=== PATIENT | female | born 1990 | race African-American/Black ===

== ENCOUNTER 2020-03-11 16:08 | Emergency (ER) | payer SELFPAY ==
[2020-03-11] MEDS ORDERED: KETOROLAC 30 MG/ML INJ ONE (17:08)
--- NOTE | 2020-03-11 17:40 | EDPHYS ---
Physician Documentation [facility] Name: Eros Jameson Age: 29 yrs Sex: Female : 1990 Arrival Date: 03/11/2020 Time: 16:10 Bed 25 Private MD: ED Physician Anoop Carrington HPI: 03/11 17:05 This 29 yrs old Black Female presents to ER via Ambulatory with complaints of Knee Pain.kb 17:06 The patient presents with decreased range of motion, pain, swelling, tenderness. The kb complaints affect the left knee. Context: The problem was sustained at home, resulted from an unknown cause, the patient can fully bear weight, the patient is able to ambulate. Onset: The symptoms/episode began/occurred 7 day(s) ago. Modifying factors: The symptoms are alleviated by nothing. the symptoms are aggravated by hyperextension and hyperflexion. Associated signs and symptoms: Pertinent positives: swelling. Treatment prior to arrival includes: no previous treatment. Severity of symptoms: At their worst the symptoms were moderate, in the emergency department the symptoms are unchanged. The patient has not experienced similar symptoms in the past. The patient has not recently seen a physician. Pt reports pain to left knee with swelling for 7 days. States she has bad knees from sports in school, but did not injury it that she knows of. 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 - Social history:: Smoking status: Patient reports the use of cigarette tobacco products, denies chronic smoking, but will smoke occasionally. ROS: 17:03 Constitutional: Negative for fever, chills, and weight loss, Cardiovascular: Negative kb for chest pain, palpitations, and edema, Respiratory: Negative for shortness of breath, cough, wheezing, and pleuritic chest pain, Abdomen/GI: Negative for abdominal pain, nausea, vomiting, diarrhea, and constipation, Back: Negative for injury and pain, Skin: Negative for injury, rash, and discoloration, Neuro: Negative for headache, weakness, numbness, tingling, and seizure. 17:03 MS/extremity: Positive for decreased range of motion, pain, swelling, tenderness, of the left knee. Exam: 17:03 Constitutional: This is a well developed, well nourished patient who is awake, alert, kb and in no acute distress. Head/Face: Normocephalic, atraumatic. Chest/axilla: Normal chest wall appearance and motion. Nontender with no deformity. No lesions are appreciated. Cardiovascular: Regular rate and rhythm with a normal S1 and S2. No gallops, murmurs, or rubs. Normal PMI, no JVD. No pulse deficits. Respiratory: Lungs have equal breath sounds bilaterally, clear to auscultation and percussion. No rales, rhonchi or wheezes noted. No increased work of breathing, no retractions or nasal flaring. Abdomen/GI: Soft, non-tender, with normal bowel sounds. No distension or tympany. No guarding or rebound. No evidence of tenderness throughout. Skin: Warm, dry with normal turgor. Normal color with no rashes, no lesions, and no evidence of cellulitis. Neuro: Awake and alert, GCS 15, oriented to person, place, time, and situation. Cranial nerves II-XII grossly intact. Motor strength 5/5 in all extremities. Sensory grossly intact. Cerebellar exam normal. Normal gait. 17:03 Musculoskeletal/extremity: Extremities: grossly normal except: noted in the left knee: decreased ROM, pain, swelling, tenderness, ROM: limited active range of motion due to pain, in the left knee, Circulation is intact in all extremities. Sensation intact. Weight bearing: able to fully bear weight. Vital Signs: 16:19 BP 144 / 92; Pulse 86; Resp 15 S; Temp 97.5(TE); Pulse Ox 100% on R/A; Weight 163.29 kg ca1 (R); Height 5 ft. 7 in. (170.18 cm) (R); 16:19 Body Mass Index 56.38 (163.29 kg, 170.18 cm) ca1 MDM: 16:51 Patient medically screened. kb 17:05 Data reviewed: vital signs, nurses notes. Data interpreted: Pulse oximetry: on room air kb is 100 %. Interpretation: normal. 17:37 Counseling: I had a detailed discussion with the patient and/or guardian regarding: the kb historical points, exam findings, and any diagnostic results supporting the discharge/admit diagnosis, radiology results, the need for outpatient follow up, a orthopedic surgeon, to return to the emergency department if symptoms worsen or persist or if there are any questions or concerns that arise at home. 03/11 16:57 Order name: Knee Left 3 View XRAY kb 03/11 17:39 Order name: Ha Wrap; Complete Time: 17:55 kb Administered Medications: 17:02 Drug: TORadol 30 mg Route: IM; Site: left deltoid; sv 17:58 Follow up: Response: No adverse reaction sv Disposition: 03/12 07:13 Co-signature as Attending Physician, Anoop Carrington MD. rn Disposition: 03/11/20 17:39 Discharged to Home. Impression: Pain in left knee. - Condition is Stable. - Discharge Instructions: Knee Pain, Mrtr-ex-Sdbe. - Prescriptions for Diclofenac Sodium 75 mg Oral Tablet, Delayed Release (E.C.) - take 1 tablet by ORAL route 2 times per day As needed; 30 tablet. - Medication Reconciliation Form, Thank You Letter, Antibiotic Education, Prescription Opioid Use form. - Follow up: Emergency Department; When: As needed; Reason: Worsening of condition. Follow up: Private Physician; When: 2 - 3 days; Reason: Recheck today's complaints, Continuance of care, Re-evaluation by your physician. Signatures: Dispatcher [employer] Whitney Barraza, ENGINEER TECHNICAL STAFF-C ENGINEER TECHNICAL STAFF-Simin Colón RN RN Anoop Ruiz MD MD rn Acob, Cheryl, RN RN ca1 Corrections: (The following items were deleted from the chart) 03/11 17:58 17:39 03/11/2020 17:39 Discharged to Home. Impression: Pain in left knee. Condition is sv Stable. Discharge Instructions: Knee Pain, Degk-pc-Kzuk. Prescriptions for Diclofenac Sodium 75 mg Oral Tablet, Delayed Release (E.C.) - take 1 tablet by ORAL route 2 times per day As needed; 30 tablet. and Forms are Medication Reconciliation Form, Thank You Letter, Antibiotic Education, Prescription Opioid Use. Follow up: Emergency Department; When: As needed; Reason: Worsening of condition. Follow up: Private Physician; When: 2 - 3 days; Reason: Recheck today's complaints, Continuance of care, Re-evaluation by your physician. kb
--- NOTE | 2020-03-11 17:40 | ER ---
Nurse's Notes [facility] Name: Eros Jameson Age: 29 yrs Sex: Female : 1990 Arrival Date: 03/11/2020 Time: 16:10 Bed 25 Private MD: Diagnosis: Pain in left knee Presentation: 03/11 16:19 Chief complaint: Patient states: I have always had problem on my knees but couple of ca1 days ago, my L knee just started hurting real bad and I can only bend it up to a certain point. It is swollen and it hurts to walk on it and stand on it too long. Coronavirus screen: Proceed with normal triage. Patient denies a cough. Patient denies shortness of breath or difficulty breathing. Patient denies measured and/or subjective temperature greater than 100.4F prior to today's visit. Patient denies travel on a cruise ship or to a country the [facility] currently lists as an affected area. Patient denies contact with known and/or suspected case of COVID-19. Ebola Screen: Patient negative for fever greater than or equal to 101.5 degrees Fahrenheit, and additional compatible Ebola Virus Disease symptoms Patient denies exposure to infectious person. Patient denies travel to an Ebola-affected area in the 21 days before illness onset. No symptoms or risks identified at this time. Initial Sepsis Screen: Does the patient meet any 2 criteria? No. Patient's initial sepsis screen is negative. Does the patient have a suspected source of infection? No. Patient's initial sepsis screen is negative. Risk Assessment: Do you want to hurt yourself or someone else? Patient reports no desire to harm self or others. Onset of symptoms was March 11, 2020. 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 - Social history:: Smoking status: Patient reports the use of cigarette tobacco products, denies chronic smoking, but will smoke occasionally. Screenin:56 Abuse screen: Denies threats or abuse. Denies injuries from another. Nutritional sv screening: No deficits noted. Tuberculosis screening: No symptoms or risk factors identified. Fall Risk None identified. Assessment: 17:00 General: Appears in no apparent distress. uncomfortable, obese, well developed, sv Behavior is calm, cooperative, appropriate for age. Pain: Complains of pain in left knee. Neuro: Level of Consciousness is awake, alert, obeys commands, Oriented to person, place, time, situation, Moves all extremities. Full function Gait is steady. Respiratory: Airway is patent Respiratory effort is even, unlabored, Respiratory pattern is regular, symmetrical. Derm: Skin is intact, Skin is pink, warm \T\ dry. 17:58 Reassessment: Patient appears in no apparent distress at this time. No changes from sv previously documented assessment. Patient and/or family updated on plan of care and expected duration. Pain level reassessed. Patient is alert, oriented x 3, equal unlabored respirations, skin warm/dry/pink. Vital Signs: 16:19 BP 144 / 92; Pulse 86; Resp 15 S; Temp 97.5(TE); Pulse Ox 100% on R/A; Weight 163.29 kg ca1 (R); Height 5 ft. 7 in. (170.18 cm) (R); 16:19 Body Mass Index 56.38 (163.29 kg, 170.18 cm) ca1 ED Course: 16:10 Patient arrived in ED. fj1 16:23 Triage completed. ca1 16:23 Arm band placed on right wrist. ca1 16:49 Simin Crawley RN is Primary Nurse. sv 16:51 Whitney [facility]C [facility] kb 16:51 Anoop Carrington MD is Attending Physician. kb 16:56 Nurse Practitioner and/or Physician Cereal Miller to see patient. sv 16:56 Patient has correct armband on for positive identification. Call light in reach. sv 17:26 Awaiting radiology results. sv 17:58 No provider procedures requiring assistance completed. Patient did not have IV access sv during this emergency room visit. 19:25 Knee Left 3 View XRAY In Process Unspecified. EDMS Administered Medications: 17:02 Drug: TORadol 30 mg Route: IM; Site: left deltoid; sv 17:58 Follow up: Response: No adverse reaction sv Outcome: 17:39 Discharge ordered by . kb 17:58 Patient left the ED. sv 17:58 Discharged to home via wheelchair, with crutches. sv 17:58 Condition: stable 17:58 Discharge instructions given to patient, Instructed on discharge instructions, follow up and referral plans. Demonstrated understanding of instructions, follow-up care. Signatures: Dispatcher [employer] Whitney Barraza, DILIA-Simin Lopes RN RN sv Acob, Cheryl RN ANTONELLA [facility]
--- OUTSIDE RECORDS SUMMARY | 2020-03-11 18:07 | XMS REPORT | Continuity of Care Document ---
:1990 Author Organization [facility] t Address [address] [place] [address] Care Team Providers Name Role Phone Darby Noyola Attending Clinician Problems This patient has no known problems. Allergies, Adverse Reactions, Alerts This patient has no known allergies or adverse reactions. Medications This patient has no known medications. Procedures This patient has no known procedures. Encounters Start End Encounter Admission Attending Care Care Encounter Source Date/Time Date/Time Type Type Clinicians Facility Department ID 2019-04-24 2019-04-24 Emergency Marta Blanca [facility] [id number] 20:31:49 22:36:00 Darby Mota [id number] [place] [id number] [place] [id number] Results This patient has no known results.
[2020-03-11 18:11] VITALS: BP 144/92; TEMP 97.5; O2SAT 100
--- NOTE | 2020-03-11 21:35 | RAD REPORT ---
EXAM DESCRIPTION: RAD - Knee Left 3 View - 03/11/2020 6:07 pm CLINICAL HISTORY: Left knee pain FINDINGS: No fracture or dislocation is seen. Mild medial joint space narrowing
== END 2020-03-11 17:58 | disposition home or self-care (01) ==
LOC: ER 16:08
DX: M25.562 Pain in left knee (principal); F17.210 Nicotine dependence, cigarettes, uncomplicated
CPT/HCPCS: 96372; 99283

== ENCOUNTER 2020-10-12 21:26 | Emergency (ER) | payer SELFPAY ==
--- OUTSIDE RECORDS SUMMARY | 2020-10-12 21:29 | XMS REPORT | Summary of Care ---
:1990 Author Organization [facility] Address [address] [place] [id number] Care Team Providers Name Role Phone Pcp, Does Not Have A Primary Care Provider Reason for Visit Reason Comments Back Pain Auth/Cert Status Reason Specialty Diagnoses / Referred By Referred To Procedures Contact Contact Emergency Medicine Diagnoses back pain [facility] [address] [place] [address] Fax: Encounter Details Date Type Department Care Team Description 08/13/2020 - Emergency [facility] [place], [place] Upper trish k pain (Primary Dx); 08/14/2020 Department F, [facility]TER Muscle spasm [address] [place] [address] [place], [place] [phone] Allergies No Known Allergiesdocumented as of this encounter (statuses as of 08/14/2020) Medications Medication Sig Dispensed Refills Start Date End Date Status traMADOL 50 mg Take 1 tablet by 30 tablet 0 10/30/2018 Active tabletIndications: mouth every 6 Acute bilateral (six) hours as thoracic back pain needed for Pain (scale 4-6). benzonatate 200 mg Take 1 capsule by 21 capsule 0 12/06/2018 Active capsuleIndications: mouth 3 (three) Chest pain, times daily as unspecified type, needed for Cough. Acute bronchitis, unspecified organism, Acute cystitis without hematuria, Chest wall pain albuterol 90 Inhale 2 Puffs 8.5 g 0 12/06/2018 A ctive mcg/actuation every 4 (four) inhalerIndications: hours as needed Chest pain, for Wheezing, unspecified type, Shortness of Acute bronchitis, Breath, unspecified organism, Bronchospasm or Chest wall pain Chest tightness. methocarbamol 750 mg Take 1 tablet by 10 tablet 0 02/11/2019 Active tabletIndications: mouth 4 (four) Neck pain times daily. ibuprofen 600 mg Take 1 tablet by 30 tablet 0 04/24/2019 Active tabletIndications: mouth every 6 Strain of left wrist, (six) hours as initial encounter needed for Pain (scale 4-6). diclofenac 75 mg EC TAKE 1 TABLET BY 0 03/12/2020 Active tablet MOUTH TWICE DAILY NEEDED cyclobenzaprine 10 mg Take 1 tablet by 21 tablet 0 08/14/2020 Active tabletIndications: mouth 3 (three) Upper back pain, times daily as Muscle spasm needed for Muscle Spasms. ibuprofen 800 mg Take 1 tablet by 14 tablet 0 08/14/2020 Active tabletIndications: mouth every 6 Upper back pain, (six) hours as Muscle spasm needed for Pain (scale 4-6). documented as of this encounter (statuses as of 08/14/2020) Active Problems Problem Noted Date BMI 50.0-59.9, adult 07/26/2017 Elevated blood pressure reading without diagnosis of h ypertension 07/26/2017 Depression, unspecified depression type 09/01/2016 Morbid obesity 08/07/2015 Encounter for general counseling and advice on contrac eptive management 08/07/2015 Well woman exam with routine gynecological exam 2014 Screening examination for STD (sexually transmitted di sease) 08/07/2015 documented as of this encounter (statuses as of 08/14/2020) Resolved Problems Problem Noted Date Resolved Date UTI (urinary tract infection) 08/23/2016 05/01/2020 Encounter for other general counseling or advice on 08/18/20 16 05/01/2020 contraception Recurrent acute serous otitis media of left ear 08/07/2015 07/26/2017 documented as of this encounter (statuses as of 08/14/2020) Immunizations Name Administration Dates Next Due TDAP 02/18/2012 documented as of this encounter Social History Tobacco Use Types Packs/Day Years Used Date Current Every Day Smoker Cigarettes 12 Sta rted: 07/26/2005 Smokeless Tobacco: Never Used Comments: 3-4 cigarettes per day Alcohol Use Drinks/Week oz/Week Comments Yes 0 Standard drinks or equivalent 0.0 socially Sex Assigned at Date Recorded Not on file COVID-19 Exposure Response Date Recorded In the last month, have you been in contact with No / Unsure 08/13/2020 11:40 PM ADMINISTRATION INTERN someone who was confirmed or suspected to have Coronavirus / COVID-19? documented as of this encounter Last Filed Vital Signs Vital Sign Reading Time Taken Comments Blood Pressure 151/92 08/14/2020 12:46 AM ADMINISTRATION INTERN Pulse 85 08/14/2020 12:46 AM ADMINISTRATION INTERN Temperature 37.7 C (99.9 F) 08/13/2020 11:53 PM ADMINISTRATION INTERN Respiratory Rate 20 08/14/2020 12:46 AM ADMINISTRATION INTERN Oxygen Saturation 97% 08/14/2020 12:46 AM ADMINISTRATION INTERN Inhaled Oxygen Concentration - - Weight 167.8 kg (370 lb) 08/13/2020 11:50 PM ADMINISTRATION INTERN Height - - Body Mass Index 57.95 05/01/2020 8:17 AM CDT documented in this encounter Discharge Instructions Airam Rodrigues FNP - 08/14/2020 You were seen today for Chief Complaint Patient presents with Back Pain Your ER diagnosis was ICD-10-CM ICD-9-CM 1. Upper back pain M54.9 724.5 2. Muscle spasm M62.838 728.85 NO LIFE-THREATENING FINDINGS ON TODAY'S EXAM. YOUR PRESCRIPTIONS : Medication List START taking these medications cyclobenzaprine 10 mg tablet Commonly known as: FLEXERIL Take 1 tablet by mouth 3 (three) times daily as needed for Muscle Spasms. CHANGE how you take these medications * ibuprofen 600 mg tablet Commonly known as: IBU Take 1 tablet by mouth every 6 (six) hours as needed for Pain (scale 4-6). What changed: Another medication with the same name was added. Make sure you understand how and whento take each. * ibuprofen 800 mg tablet Commonly known as: IBU Take 1 tablet by mouth every 6 (six) hours as needed for Pain (scale 4-6). What changed: You were already taking a medication with the same name, and this prescription was added. Make sure you understand how and when to take each. * This list has 2 medication(s) that are the same as other medications prescribed for you. Read thedirections carefully, and ask your doctor or other care provider to review them with you. ASK your doctor about these medications albuterol 90 mcg/actuation inhaler Commonly known as: VENTOLIN Inhale 2 Puffs every 4 (four) hours as needed for Wheezing, Shortness of Breath, Bronchospasm or Chest tightness. benzonatate 200 mg capsule Commonly known as: TESSALON Take 1 capsule by mouth 3 (three) times daily as needed for Cough. diclofenac 75 mg EC tablet Commonly known as: VOLTAREN methocarbamoL 750 mg tablet Commonly known as: ROBAXIN Take 1 tablet by mouth 4 (four) times daily. traMADoL 50 mg tablet Commonly known as: ULTRAM Take 1 tablet by mouth every 6 (six) hours as needed for Pain (scale 4-6). Where to Get Your Medications You can get these medications from any pharmacy Bring a paper prescription for each of these medications cyclobenzaprine 10 mg tablet ibuprofen 800 mg tablet ER precautions and follow up : 1. Return to ER if your symptoms should worsen or fail to improve within 72 hours. 2. The care provided in the emergency room was for acute problems only. 3. You should follow up with your primary care provider within 72 hours. 4. Fill and take all your medications as prescribed. 5. Make sure you are staying adequately hydrated. Busque attencion immediatamente si usted tiene los sitomas sigue, vuelve peor o si hay sitomas nuevas o para cualquiera preoccupacion incluyendo dolor del pecho, falta aire, se siente debile, mas fievre, mas dolor, nausea, vomitando, sangrando que no es normal, confusion, baja or pierdas conciencia. FOLLOW-UP RECOMMENDATIONS: RECOMMEND FOLLOW-UP WITH A PRIMARY CARE PROVIDER OR SPECIALIST IN 2-5 DAYS, ESPECIALLY IF NO IMPROVEMENT IN SYMPTOMS. MAY FOLLOW-UP WITH A PROVIDER OF YOUR CHOICE, SUCH : 1. A PHYSICIAN OF YOUR CHOICE 2. [facility], . LOCATIONS IN [facility] 3. [facility], [address] [place], [place]; [phone] OR, IF YOU WISH TO FOLLOW-UP WITHIN THE [facility], MAY TRY THESE OPTIONS (CLINIC APPOINTMENTS AVAILABLE ON [id number] BASIS): 1. SCHEDULE AN APPOINTMENT ONLINE AT [facility] 2. OR CALL THE [facility] AT OR 3. OR CALL YOUR [facility] PHYSICIAN'S OFFICE DIRECTLY IF YOU ARE ALREADY AN ESTABLISHED [facility] PATIENT. AttachmentsThe following attachments cannot be sent through Care Everywhere.Back Spasm, No Trauma (Cymraes)documented in this encounter ED Notes Bartolo Vitale RN - 08/13/2020 11:50 PM CSTPt reports right upper back pain beside lower shoulder blade that started Tuesday (no trauma) and is getting worse/not going away. Npo OTC meds in past 4-[address] NISTRATION INTERN documented in this encounter Miscellaneous Notes ED Nurse Note - Bartool Vitale RN - 08/14/2020 12:56 AM CSTPt given printed and verbal discharge instructions regarding back spasms, encouraged heating pad intermittently for some relief prescriptions provided and discussed with patient/family Discussed Tylenol and ibuprofen use for pain/fever. Discussed ibuprofen and to take with food to avoid GI distress. Discussed cyclobenzaprine side effects and to avoid driving/operating machinery/or engaging in activities requiring alertness while taking. Pt encouraged to follow up with pcp Advised to seek medical attention for new/prolonged/worsening of symptoms. No adverse reaction to meds given in ER noted upon discharge. Pt verbalized understanding of instructions, awake alert oriented, resp reg unlabored, skin w/d, color appropriate for race, moves all ext well, pt leaving amb with steady gait, in no apparent distress, NISTRATION INTERN documented in this encounter Plan of Treatment Health Maintenance Due Date Last Done Comments PNEUMOCOCCAL 0-64 YEARS COMBINED 1994 SERIES (1 of 1 - PPSV23) INFLUENZA VACCINE (#1) 2020 Depression Screening 05/01/2021 05/01/2020, 05/01/2020 DTaP,Tdap,and Td Vaccines (2 - Td) 02/17/2022 02/18/2012 PAP SMEAR 05/01/2023 05/01/2020, 08/07/2015, 03/10/2010 VARICELLA VACCINES Discontinued documented as of this encounter Procedures Procedure Name Priority Date/Time Associated Diagnosis Comme nts POCT TEST JOSE 08/14/2020 12:01 AM Upper back fe n Results for this ADMINISTRATION INTERN procedure are i n the results section. documented in this encounter Results POCT TEST (08/14/2020 12:01 AM ADMINISTRATION INTERN) Pathologist Sig nature POCT PREG negative On board controls acceptable present with C Line POCT PREG LOT # [id number] POCT PREG TEST DATE 2022-01-16 Specimen Urine - URINE, CLEAN CATCH documented in this encounter Visit Diagnoses Diagnosis Upper back pain - Primary Muscle spasm Spasm of muscle documented in this encounter Administered Medications Medication Order MAR Action Action Date Dose Rate Site acetaminophen (TYLENOL) tablet Given 08/14/2020 12:39 AM ADMINISTRATION INTERN 1,0 00 mg 1,000 mg 1,000 mg, Oral, ONCE, 1 dose, Margaret 08/14/20 at 0145, JOSE dexamethasone (DECADRON Given 08/14/2020 12:07 AM 10 mg Right Dorsogluteal-IM PHOSPHATE) injection 10 mg ADMINISTRATION INTERN 10 mg, Intramuscular, ONCE, 1 dose, Margaret 08/14/20 at 0100, STAT ketorolac (TORADOL) Given 08/14/2020 12:08 AM ADMINISTRATION INTERN 60 mg Left Dorsogluteal-IM injection 60 mg 60 mg, Intramuscular, ONCE, 1 dose, Margaret 08/14/20 at 0100, JOSE, food court team member approving Restricted medication: AIRAM CARRILLO documented in this encounter Advance Directives Name Relationship Healthcare Agent Communication Relationship Sindhu Mcgill Mother Health Care Agent Pancho Jameson Father [facility] Care Agent ([place])
--- OUTSIDE RECORDS SUMMARY | 2020-10-12 21:29 | XMS REPORT | Summary of Care ---
:1990 Author Organization [facility] - Health Address [address] [place] [address] Care Team Providers Name Role Phone Pcp, Does Not Have A Primary Care Provider Encounter Details Date Type Department Care Team Description 10/09/2020 Orders Only [facility] Doctor Unassigned, No [address] [facility] [place] [address] [address] [place] [address] Allergies No Known Allergiesdocumented as of this encounter (statuses as of 10/09/2020) Medications Medication Sig Dispensed Refills Start Date [...] as of this encounter (statuses as of 10/09/2020) Active Problems Problem Noted Date BMI 50.0-59.9, adult 07/26/2017 Elevated blood pressure reading without diagnosis of h ypertension 07/26/2017 Depression, unspecified depression type 09/01/2016 Morbid obesity 08/07/2015 Encounter for general counseling and advice on contrac eptive management 08/07/2015 Well woman exam with routine gynecological exam 2014 Screening examination for STD (sexually transmitted di sease) 08/07/2015 documented as of this encounter (statuses as of 10/09/2020) Resolved Problems Problem Noted Date Resolved Date UTI (urinary tract infection) 08/23/2016 05/01/2020 Encounter for other general counseling or advice on 08/18/20 16 05/01/2020 contraception Recurrent acute serous otitis media of left ear 08/07/2015 07/26/2017 documented as of this encounter (statuses as of 10/09/2020) Immunizations Name Administration Dates Next Due TDAP 02/18/2012 documented as of this encounter Social History Tobacco Use Types Packs/Day Years Used Date Current Every Day Smoker Cigarettes 12 Sta rted: 07/26/2005 Smokeless Tobacco: Never Used Comments: 3-4 cigarettes per day Alcohol Use Drinks/Week oz/Week Comments Yes 0 Standard drinks or equivalent 0.0 socially Sex Assigned at Date Recorded Not on file documented as of this encounter Last Filed Vital Signs Not on filedocumented in this encounter Plan of Treatment Health Maintenance Due Date Last Done Comments PNEUMOCOCCAL 0-64 YEARS COMBINED 1994 SERIES (1 of 3 - PCV13) INFLUENZA VACCINE (#1) 2020 Depression Screening 05/01/2021 05/01/2020, 05/01/2020 DTaP,Tdap,and Td Vaccines (2 - Td) 02/17/2022 02/18/2012 PAP SMEAR 05/01/2023 05/01/2020, 08/07/2015, 03/10/2010 VARICELLA VACCINES Discontinued documented as of this encounter Procedures Procedure Name Priority Date/Time Associated Diagnosis Comme nts CONSENT/REFUSAL FOR Routine 10/09/2020 6:15 AM [facility] documented in this encounter Results Not on filedocumented in this encounter Insurance Payer Benefit Plan Subscriber ID Effective Phone Address Typ e / Group Dates [facility] [id number] 2020-Prese [phone] Medicaid WOMEN nt [address] [place] [address] documented as of this encounter Advance Directives Name Relationship Healthcare Agent Communication Relationship Sindhu Mcgill Mother Health Care Agent [place]anch[place] Jameson Father [facility] [phone] Care Agent (Mobile)
--- OUTSIDE RECORDS SUMMARY | 2020-10-12 21:29 | XMS REPORT | Summary of Care ---
:1990 Author Organization [facility] Address [address] [place] [address] Care Team Providers Name Role Phone Pcp, Does Not Have A Primary Care Provider Reason for Visit Reason Comments Headache Auth/Cert Status Reason Specialty Diagnoses / Referred By Referred To Procedures Contact Contact Emergency Medicine [facility] Em ergency Dept [address] [place] [address] Fax: Encounter Details Date Type Department Care Team Description 10/09/2020 Emergency ADC-Emergency Kinza Alcantara, [address] [id number] Other migraine without Department Christopher Flores, [address] [place], [place] [id number] status migrainosus, [address] [facility] not [address] (Primary Dx) [place] [address] Allergies No Known Allergiesdocumented as of this [...] been in contact with No / Unsure 10/09/2020 6:21 AM DRY KILN FEEDER someone who was confirmed or suspected to have Coronavirus / COVID-19? documented as of this encounter Last Filed Vital Signs Vital Sign Reading Time Taken Comments Blood Pressure 149/94 10/09/2020 7:00 AM DRY KILN FEEDER Pulse 79 10/09/2020 7:00 AM DRY KILN FEEDER Temperature 37 C (98.6 F) 10/09/2020 6:23 AM DRY KILN FEEDER Respiratory Rate 18 10/09/2020 7:00 AM DRY KILN FEEDER Oxygen Saturation 100% 10/09/2020 7:00 AM DRY KILN FEEDER Inhaled Oxygen Concentration - - Weight 167.8 kg (370 lb) 10/09/2020 6:23 AM DRY KILN FEEDER Height 167.6 cm (5' 6") 10/09/2020 6:23 AM DRY KILN FEEDER Body Mass Index 59.72 10/09/2020 6:23 AM DRY KILN FEEDER documented in this encounter Discharge Instructions Christopher Arteaga DO - 10/09/2020 DIAGNOSIS Diagnoses that have been ruled out: None Diagnoses that are still under consideration: None Final diagnoses: Other migraine without status migrainosus, not intractable NO LIFE-THREATENING FINDINGS ON TODAY'S EXAM. PROCEDURES IN THE ER TODAY: No orders of the defined types were placed in this encounter. MEDICATIONS ADMINISTERED IN THE ER TODAY AND DISCHARGE MEDICATIONS: Orders Placed This Encounter Medications proMETHazine (PHENERGAN) 25 mg in NaCl 0.9% (NS) 50 mL piggyback ketorolac (TORADOL) injection 15 mg FOLLOW-UP RECOMMENDATIONS: RECOMMEND FOLLOW-UP WITH A PRIMARY CARE PROVIDER OR SPECIALIST IN 2-5 DAYS, ESPECIALLY IF NO IMPROVEMENT IN SYMPTOMS. MAY FOLLOW-UP WITH A PROVIDER OF YOUR CHOICE, SUCH : 1. A PHYSICIAN OF YOUR CHOICE 2. [facility], . LOCATIONS IN [facility] 3. [facility], [address], [place]; [phone] OR, IF YOU WISH TO FOLLOW-UP WITHIN THE [facility], MAY TRY THESE OPTIONS (CLINIC APPOINTMENTS AVAILABLE ON [id number] BASIS): 1. SCHEDULE AN APPOINTMENT ONLINE AT [email or web address] 2. OR CALL THE [facility] AT OR 3. OR CALL YOUR [facility] PHYSICIAN'S OFFICE DIRECTLY IF YOU ARE ALREADY AN ESTABLISHED [facility] PATIENT. RETURN TO ER FOR WORSENING OF SYMPTOMS. AttachmentsThe following attachments cannot be sent through Care Everywhere. Headaches,Migraines and Cluster (Niuean)documented in this encounter ED Notes Ariella Chiu RN - 10/09/2020 6:21 AM CSTHeadache since Tuesday, patient states she took her bp on Tuesday it was running high. Christopher Purcell DO - 10/09/2020 6:16 AM CST ED Course as of Oct 09 08 Margaret Oct 09, 2020 0804 On reevaluation, patient is feeling better. Mild HTN. Follow-up with PCP for optimization of BP. Stable for discharge. [PS] [address] Alcantara at shift change. Patient with typical migraine being treated with cocktail. Anticipate discharge after reevaluation. [PS] ED Course User Index [PS] Christopher Flores DO KILN FEEDER Derick Alcantara DO - 10/09/2020 6:16 AM CST [facility] Emergency Department Note Patient Name: Eros Jameson Date of : 1990 30 year old female Treatment Room: TX6/TX6 Primary Care Physician: PATIENT DOES NOT HAVE A PCP Patient Escorted by: Self [9] Mode of Arrival: Personal means [1] EMS Treatment Prior to ED Arrival: SIDE LASTER TACK treatment: None Travel and Exposure Screening: Symptoms Does patient have any of these symptoms?: (not recorded) Exposure Screening Has patient had contact with someone with a communicable disease in the last month?: (not recorded) Diseases exposed to:: (not recorded) Is Patient ?: (not recorded) Exposure Date: (not recorded) Chief Complaint: Chief Complaint Patient presents with Headache History of Present Illness: HPI 30yo obese AAF presents today with headache. She reports it started on Tuesday and she states she hadphotophobia but eventually it arlyn away. However it came back yesterday and since it was there when she woke up she came in. She reports photophobia is common of rher but she hasn't had one this long. Not around her period and reports not seeing anyone for this before. She does note that her BP is higheverytime she has a headache and was thinking that might be it. Past Medical History/Immunizations: Past Medical History: Diagnosis Date Bronchitis Chlamydia 2009 Depression, unspecified depression type 09/01/2016 denies si/hi, not on medication, no PCP at this time Heartburn Menstrual disorder irregular menses Tetanus received in last 5 years: Unknown Childhood immunizations: Up-to-date Allergies: No Known Allergies Past Social History: Tobacco Use Current Every Day Smoker; Started 07/26/2005; Smoked for 12 years; Smoked: Cigarettes. Smokeless Tobacco: Never used smokeless tobacco. Comments: 3-4 cigarettes per day Alcohol Use Yes; 0.0 standard drinks of alcohol per week; 0 Standard drinks or equivalent. Comments: socially Drug Use No. Sexual Activity Sexually active; Partners: Male; Control/Protection: Condom. Past Surgical History: No past surgical history on file. Review of Systems: Review of Systems Constitutional: Negative for activity change, diaphoresis, fatigue, fever and weight gain. HENT: Negative for congestion, ear pain, rhinorrhea, sore throat, tinnitus and trouble swallowing. Eyes: Positive for photophobia. Negative for discharge and visual disturbance. Respiratory: Negative for cough and chest tightness. Breasts: Negative for pain. Cardiovascular: Negative for chest pain and palpitations. Gastrointestinal: Negative for abdominal pain, nausea and vomiting. Genitourinary: Negative for dysuria, hematuria and difficulty urinating. Musculoskeletal: Negative for joint swelling. Skin: Negative for rash and wound. Neurological: Positive for headaches. Negative for dizziness. Psychiatric/Behavioral: Negative for agitation and confusion. The patient is not nervous/anxious. Hematological: Does not bruise/bleed easily. Endocrine: Negative for weight gain. Physical Exam: ED Triage Vitals Weight 10/09/20622 167.8 kg (370 lb) Actual or estimated -- Height 10/09/20622 1.676 m (5' 6") BP 10/09/20 0649 (!) 155/89 Pulse 10/09/20622 85 Resp 10/09/20622 18 Temp 10/09/20622 37 C (98.6 F) Temp src -- SpO2 10/09/20622 99 % Measured on 10/09/20622 Room air Physical Exam Vitals signs reviewed. Constitutional: Appearance: She is well-developed. She is obese. Comments: Patient sitting in dark room HENT: Head: Normocephalic and atraumatic. Eyes: Conjunctiva/sclera: Conjunctivae normal. Neck: Musculoskeletal: Neck supple. Cardiovascular: Rate and Rhythm: Normal rate and regular rhythm. Heart sounds: Normal heart sounds. No murmur. Pulmonary: Effort: Pulmonary effort is normal. Breath sounds: Normal breath sounds. No stridor. Abdominal: General: Bowel sounds are normal. Palpations: Abdomen is soft. Tenderness: There is no abdominal tenderness. Musculoskeletal: Normal range of motion. Skin: General: Skin is warm and dry. Capillary Refill: Capillary refill takes less than 2 seconds. Neurological: Mental Status: She is alert and oriented to person, place, and time. Cranial Nerves: No cranial nerve deficit. Psychiatric: Behavior: Behavior normal. Radiology: No results found for this visit on 10/09/20. Lab Results (24h): No results found for this or any previous visit (from the past 24 hour(s)). Orders and Treatments: No orders of the defined types were placed in this encounter. Orders Placed This Encounter Medications proMETHazine (PHENERGAN) 25 mg in NaCl 0.9% (NS) 50 mL piggyback ketorolac (TORADOL) injection 15 mg ED COURSE I suspect BP is high due to pain. Will given phenergan and toradol to try to break headache Signed out to for reeval. MDM: Coding Scoring Tools: No data recorded Diagnosis/Impression: ICD-10-CM ICD-9-CM 1. Other migraine without status migrainosus, not intractable G43.809 346.80 Disposition/Condition: ED Disposition ED Disposition Condition Comment Disch - Home Stable Discharge Medications: Patient's Medications START taking these medications No medications on file CONTINUE taking these medications which have NOT CHANGED ALBUTEROL 90 MCG/ACTUATION INHALER Inhale 2 Puffs every 4 (four) hours as needed for Wheezing, Shortness of Breath, Bronchospasm or Chest tightness. BENZONATATE 200 MG CAPSULE Take 1 capsule by mouth 3 (three) times daily as needed for Cough. CYCLOBENZAPRINE 10 MG TABLET Take 1 tablet by mouth 3 (three) times daily as needed for Muscle Spasms. DICLOFENAC 75 MG EC TABLET TAKE 1 TABLET BY MOUTH TWICE DAILY NEEDED IBUPROFEN 600 MG TABLET Take 1 tablet by mouth every 6 (six) hours as needed for Pain (scale 4-6). IBUPROFEN 800 MG TABLET Take 1 tablet by mouth every 6 (six) hours as needed for Pain (scale 4-6). METHOCARBAMOL 750 MG TABLET Take 1 tablet by mouth 4 (four) times daily. TRAMADOL 50 MG TABLET Take 1 tablet by mouth every 6 (six) hours as needed for Pain (scale 4-6). START taking Modified Medications as Prescribed No medications on file STOP taking these medications No medications on file Follow-up: Electronically signed by: Derick Alcantara DO 10/09/2020 6:49 AM KILN FEEDER documented in this encounter Miscellaneous Notes ED Nurse Note - Tatiana Sales RN - 10/09/2020 8:57 AM CSTDischarge instructions/prscribed medications reviewed with pt with verbalized understanding. NAD, respirations even and unlabored, AOX4, ambulatory out of ED with a steady gait. KILN FEEDER documented in this encounter Plan of Treatment [...] Name Priority Date/Time Associated Diagnosis Comme nts NOTICE OF PRIVACY Routine 10/09/2020 6:16 AM DRY KILN FEEDER PRACTICES documented in this encounter Results Not on filedocumented in this encounter Visit Diagnoses Diagnosis Other migraine without status migrainosu s, not intractable - Primary documented in this encounter Administered Medications Medication Order MAR Action Action Date Dose Rate Site ketorolac (TORADOL) Given 10/09/2020 7:38 AM 15 mg Right Deltoid-IM injection 15 mg DRY KILN FEEDER 15 mg, Intramuscular, ONCE, 1 dose, Margaret 10/09/20 at 0800, JOSE, lance crewmember approving Restricted medication: DERICK ALCANTARA proMETHazine (PHENERGAN) 25 mg in NaCl 0.9% Given 10/09/2020 7:39 AM DRY KILN FEEDER 25 mg (NS) 50 mL piggyback 25 mg, IV Piggyback, ONCE, 1 dose, Margaret 10/09/20 at 0800, 50 mL documented in this encounter Advance Directives Name Relationship Healthcare Agent Communication Relationship Sindhu Mcgill Mother Health Care Agent Pancho Gisell [facility] [phone] Care Agent (Mobile)
--- OUTSIDE RECORDS SUMMARY | 2020-10-12 21:29 | XMS REPORT | Continuity of Care Document ---
:1990 Author Organization [facility] t Address [address] [place] [address] Care Team Providers Name Role Phone Quinton MCKEON Attending Clinician DO Attending Clinician Doctor Unassigned, Name Attending Clinician Unavailable Dontrell MIRANDAP, F Attending Clinician Andrew ILLUMINATING ENGINEER, N Attending Clinician Problems This patient has no known problems. Allergies, Adverse Reactions, Alerts This patient has no known allergies or adverse reactions. Medications This patient has no known medications. Procedures This patient has no known procedures. Encounters Start End Encounter Admission Attending Care Care Encounter Source Date/Time Date/Time Type Type Clinicians Facility Department ID 2020-10-09 2020-10-09 Emergency Theresa Alcantara [facility] [id number] 06:19:00 08:57:00 Christopher Flores [id number] [place] [id number] [place] [id number] 2020-10-09 2020-10-09 Orders Doctor BURRELL [id number] 00:00:00 00:00:00 Only JOAQUÍN Lucas [id number] [place] [facility] [id number] 2020-08-13 2020-08-14 Emergency [facility] [id number] 23:46:00 00:58:00 Tanika Antolin Svetlana [id number] [place] [id number] [place] [id number] 2020-05-05 2020-05-05 Telephone [facility] [id number] 00:00:00 00:00:00 Laxmi Davila DIRECTOR PROSPECT [id number] [facility] [id number] MATERNAL [id number] & CHILD 107 [facility] 2020-05-01 2020-05-01 Office [facility] [id number] 07:54:53 08:58:33 Visit Laxmi Davila DIRECTOR PROSPECT [id number] [facility] [id number] MATERNAL [id number] & CHILD 107 [facility] Results This patient has no known results.
[2020-10-12] MEDS ORDERED: IBUPROFEN 400 MG TAB ONE (23:37)
--- NOTE | 2020-10-13 00:51 | EDPHYS ---
Physician Documentation [facility] Name: Eros Jameson Age: 30 yrs Sex: Female : 1990 Arrival Date: 10/12/2020 Time: 21:30 Bed 25 Private MD: ED Physician Scott Jacob HPI: 10/12 23:33 This 30 yrs old Black Female presents to ER via Ambulatory with complaints of Knee Pain.mh7 23:33 The patient presents with pain, that is acute. The complaints affect the left knee. mh7 Context: The problem was sustained at work, resulted from an unknown cause, the patient can fully bear weight, the patient is able to ambulate, with moderate difficulty, Problem is a result from a previous injury: No. 23:34 Onset: The symptoms/episode began/occurred yesterday. Modifying factors: The symptoms mh7 are alleviated by remaining still, the symptoms are aggravated by movement, weight bearing. Associated signs and symptoms: Pertinent negatives calf tenderness, fever, nausea, numbness, rash, tingling, vomiting, warmth, weakness. Treatment prior to arrival includes: no previous treatment. Severity of symptoms: At their worst the symptoms were moderate, earlier today, in the emergency department the symptoms are unchanged. SUBACUTE NURSE: 21:39 LMP N/A - Irregular menses ca1 Historical: - Allergies: 21:39 No Known Allergies; ca1 - Home Meds: 21:39 None [Active]; ca1 - PMHx: 21:39 None; ca1 - PSHx: 21:39 None; ca1 - Immunization history:: Flu vaccine is not up to date. - Social history:: Smoking status: Patient reports the use of cigarette tobacco products, smokes one-half pack cigarettes per day. ROS: 23:34 Constitutional: Negative for fever, chills, and weight loss, Eyes: Negative for injury, mh7 pain, redness, and discharge, ENT: Negative for injury, pain, and discharge, Neck: Negative for injury, pain, and swelling, Cardiovascular: Negative for chest pain, palpitations, and edema, Respiratory: Negative for shortness of breath, cough, wheezing, and pleuritic chest pain, Abdomen/GI: Negative for abdominal pain, nausea, vomiting, diarrhea, and constipation, Back: Negative for injury and pain, : Negative for injury, bleeding, discharge, and swelling, Skin: Negative for injury, rash, and discoloration, Neuro: Negative for headache, weakness, numbness, tingling, and seizure, Psych: Negative for depression, anxiety, suicide ideation, homicidal ideation, and hallucinations, Allergy/Immunology: Negative for hives, rash, and allergies, Endocrine: Negative for neck swelling, polydipsia, polyuria, polyphagia, and marked weight changes, Hematologic/Lymphatic: Negative for swollen nodes, abnormal bleeding, and unusual bruising. Exam: 23:34 Constitutional: This is a well developed, well nourished patient who is awake, alert, mh7 and in no acute distress. Head/Face: Normocephalic, atraumatic. Neck: Trachea midline, no thyromegaly or masses palpated, and no cervical lymphadenopathy. Supple, full range of motion without nuchal rigidity, or vertebral point tenderness. No Meningismus. Chest/axilla: Normal chest wall appearance and motion. Nontender with no deformity. No lesions are appreciated. Cardiovascular: Regular rate and rhythm with a normal S1 and S2. No gallops, murmurs, or rubs. Normal PMI, no JVD. No pulse deficits. Respiratory: Lungs have equal breath sounds bilaterally, clear to auscultation and percussion. No rales, rhonchi or wheezes noted. No increased work of breathing, no retractions or nasal flaring. Abdomen/GI: Soft, non-tender, with normal bowel sounds. No distension or tympany. No guarding or rebound. No evidence of tenderness throughout. Back: No spinal tenderness. No costovertebral tenderness. Full range of motion. Skin: Warm, dry with normal turgor. Normal color with no rashes, no lesions, and no evidence of cellulitis. 23:34 Neuro: Awake and alert, GCS 15, oriented to person, place, time, and situation. Cranial nerves II-XII grossly intact. Motor strength 5/5 in all extremities. Sensory grossly intact. Cerebellar exam normal. Normal gait. Psych: Awake, alert, with orientation to person, place and time. Behavior, mood, and affect are within normal limits. 23:34 Musculoskeletal/extremity: Extremities: noted in the left anterior knee: pain, tenderness, ROM: limited active range of motion due to pain, in the left knee, limited passive range of motion due to pain, in the left knee, Circulation is intact in all extremities. Pulses: are normal with no appreciated deficits, Perfusion: the patient is normally perfused throughout, Perfusion: the extremity is normally perfused throughout, Calf tenderness, is absent, Edema, is not appreciated, Sensation intact. Compartment Syndrome exam of affected extremity: is normal. no numbness, no tingling, no sensation deficit, no palor, no weak pulses, Joints: the left knee displays tenderness, Tendon exam: specific tendon testing normal through active and passive range of motion Vital Signs: 21:37 BP 159 / 98; Pulse 92; Resp 16 S; Temp 98.2(TE); Pulse Ox 99% on R/A; Weight 167.83 kg ca1 (R); Height 5 ft. 6 in. (167.64 cm) (R); Pain 10/10; 23:19 BP 117 / 89; Pulse 89; Resp 18; Temp 99.3; Pulse Ox 100% on R/A; Pain 10/10; fu 10/13 00:15 BP 109 / 67; Pulse 87; Resp 19; Pulse Ox 99% ; fu 01:00 BP 107 / 65; Pulse 86; Resp 18; Pulse Ox 98% on R/A; Pain 4/10; fu 10/12 21:37 Body Mass Index 59.72 (167.83 kg, 167.64 cm) ca1 MDM: 00:48 Differential diagnosis: contusion, tendonitis, Arthritis, Sprain, Strain. Data [facility] reviewed: vital signs, nurses notes, radiologic studies, plain films. Data interpreted: Pulse oximetry: on room air is 100 %. Interpretation: normal. Counseling: I had a detailed discussion with the patient and/or guardian regarding: the historical points, exam findings, and any diagnostic results supporting the discharge/admit diagnosis, radiology results, the need for outpatient follow up, to return to the emergency department if symptoms worsen or persist or if there are any questions or concerns that arise at home. Response to treatment: the patient's symptoms have markedly improved after treatment. 00:50 Patient medically screened. [facility] 10/12 23:20 Order name: Knee Left 3 View XRAY [facility] 10/13 00:48 Order name: Ha Wrap; Complete Time: 01:12 [facility] Administered Medications: 10/12 23:24 Drug: Ibuprofen 800 mg Route: PO; fu 10/13 00:24 Follow up: Response: Pain is decreased fu Disposition: 10/13/20 00:50 Discharged to Home. Impression: Pain in left knee. - Condition is Stable. - Discharge Instructions: Knee Pain. - Prescriptions for Ibuprofen 800 mg Oral Tablet - take 1 tablet by ORAL route every 8 hours As needed take with food; 15 tablet. - Medication Reconciliation Form, Thank You Letter, Antibiotic Education, Prescription Opioid Use form. - Follow up: Private Physician; When: 1 - 2 days; Reason: Worsening of condition, Recheck today's complaints, Continuance of care, Re-evaluation by your physician. Follow up: Sebastien Caldwell MD; When: 2 - 3 days; Reason: Worsening of condition, Recheck today's complaints. - Problem is new. - Symptoms have improved. Signatures: Dispatcher [employer] EDMS Julian Faith RN RN fu Acob, Cheryl, RN RN ca1 Holmes, Maurice, MD MD mh7 Corrections: (The following items were deleted from the chart) 01: 00:50 10/13/2020 00:50 Discharged to Home. Impression: Pain in left knee. Condition is fu Stable. Forms are Medication Reconciliation Form, Thank You Letter, Antibiotic Education, Prescription Opioid Use. Follow up: Private Physician; When: 1 - 2 days; Reason: Worsening of condition, Recheck today's complaints, Continuance of care, Re-evaluation by your physician. Follow up: Sebastien Caldwell; When: 2 - 3 days; Reason: Worsening of condition, Recheck today's complaints. Problem is new. Symptoms have improved. mh7
--- NOTE | 2020-10-13 00:51 | ER ---
Nurse's Notes [facility] Name: Eros Jameson Age: 30 yrs Sex: Female : 1990 Arrival Date: 10/12/2020 Time: 21:30 Bed 25 Private MD: Diagnosis: Pain in left knee Presentation: 10/12 21:37 Chief complaint: Patient states: pain and swelling on L knee since yesterday. Denies ca1 injury. Coronavirus screen: Client denies travel out of the [place] in the last 14 days. At this time, the client does not indicate any symptoms associated with coronavirus-19. Ebola Screen: Patient negative for fever greater than or equal to 101.5 degrees Fahrenheit, and additional compatible Ebola Virus Disease symptoms Patient denies exposure to infectious person. Patient denies travel to an Ebola-affected area in the 21 days before illness onset. No symptoms or risks identified at this time. Initial Sepsis Screen: Does the patient meet any 2 criteria? No. Patient's initial sepsis screen is negative. Does the patient have a suspected source of infection? No. Patient's initial sepsis screen is negative. Risk Assessment: Do you want to hurt yourself or someone else? Patient reports no desire to harm self or others. Onset of symptoms was October 12, 2020. 21:37 Method Of Arrival: Ambulatory ca1 21:37 Acuity: DANIELLE 4 ca1 CHEMIST ENZYMES: 21:39 LMP N/A - Irregular menses ca1 Historical: - Allergies: 21:39 No Known Allergies; ca1 - Home Meds: 21:39 None [Active]; ca1 - PMHx: 21:39 None; ca1 - PSHx: 21:39 None; ca1 - Immunization history:: Flu vaccine is not up to date. - Social history:: Smoking status: Patient reports the use of cigarette tobacco products, smokes one-half pack cigarettes per day. Screenin:24 Abuse screen: Denies threats or abuse. Nutritional screening: No deficits noted. fu Tuberculosis screening: No symptoms or risk factors identified. Fall Risk None identified. Assessment: 23:16 General: Appears in no apparent distress. Behavior is calm, cooperative, appropriate fu for age, Denies fever, feeling ill, fatigue, chills. Pain: Complains of pain in left knee Pain does not radiate. Pain currently is 10 out of 10 on a pain scale. Quality of pain is described as sharp, Pain began yesterday Is continuous, Aggravated by movement. Neuro: Level of Consciousness is awake, alert, obeys commands, Oriented to person, place, time, situation, Gait is unsteady, Speech is normal, Facial symmetry appears normal. Cardiovascular: Denies chest pain, lightheadedness, nausea, vomiting, Capillary refill < 3 seconds Pulses are all present. Respiratory: Respiratory effort is even, unlabored, Respiratory pattern is regular. GI: No signs and/or symptoms were reported involving the gastrointestinal system. : No signs and/or symptoms were reported regarding the genitourinary system. EENT: No signs and/or symptoms were reported regarding the EENT system. Derm: swelling on left knee. Musculoskeletal: Reports pain in left knee since yesterday. 10/13 00:00 Reassessment: Patient appears in no apparent distress at this time. Patient and/or fu family updated on plan of care and expected duration. Pain level reassessed. Patient is alert, oriented x 3, equal unlabored respirations, skin warm/dry/pink. Patient states feeling better. 01:00 Reassessment: Patient appears in no apparent distress at this time. Patient and/or fu family updated on plan of care and expected duration. Pain level reassessed. Patient is alert, oriented x 3, equal unlabored respirations, skin warm/dry/pink. Vital Signs: 10/12 21:37 BP 159 / 98; Pulse 92; Resp 16 S; Temp 98.2(TE); Pulse Ox 99% on R/A; Weight 167.83 kg ca1 (R); Height 5 ft. 6 in. (167.64 cm) (R); Pain 10/10; 23:19 BP 117 / 89; Pulse 89; Resp 18; Temp 99.3; Pulse Ox 100% on R/A; Pain 10/10; fu 10/13 00:15 BP 109 / 67; Pulse 87; Resp 19; Pulse Ox 99% ; fu 01:00 BP 107 / 65; Pulse 86; Resp 18; Pulse Ox 98% on R/A; Pain 4/10; fu 10/12 21:37 Body Mass Index 59.72 (167.83 kg, 167.64 cm) ca1 ED Course: 10/12 21:30 Patient arrived in ED. bp1 21:38 Triage completed. ca1 21:39 Arm band placed on right wrist. ca1 23:03 Scott Jacob MD is Attending Physician. 7 23:10 Julian Faith, RN is Primary Nurse. fu 23:25 Patient has correct armband on for positive identification. Bed in low position. Call fu light in reach. Side rails up X 1. Pulse ox on. NIBP on. 10/13 00:13 Knee Left 3 View XRAY In Process Unspecified. EDMS 00:50 Sebastien Caldwell MD is Referral Physician. 7 01:10 Ha wrap to left knee. fu 01:23 No provider procedures requiring assistance completed. Patient did not have IV access fu during this emergency room visit. Administered Medications: 10/12 23:24 Drug: Ibuprofen 800 mg Route: PO; fu 10/13 00:24 Follow up: Response: Pain is decreased fu Outcome: 00:50 Discharge ordered by MD. [facility] 01:23 Discharged to home via wheelchair. fu :23 Condition: good 01:23 Discharge instructions given to patient, Instructed on discharge instructions, follow up and referral plans. Demonstrated understanding of instructions, follow-up care, Prescriptions given X 1. 01:24 Patient left the ED. fu Signatures: Dispatcher [employer] EDIA Julian Faith RN RN Tori Bowie RN RN [facility] Yarelis Brewer bp1 Scott Jacob MD MD [facility]
[2020-10-13 01:31] VITALS: TEMP 99.3
[2020-10-13 01:33] VITALS: BP 107/65; O2SAT 98
--- NOTE | 2020-10-13 16:21 | RAD REPORT ---
EXAM DESCRIPTION: Knee Left 3 View CLINICAL HISTORY: 30 years Female PAIN COMPARISON: None. TECHNIQUE: Three views of the left knee. FINDINGS: No acute fractures or dislocations are identified. No osseous destructive lesions. Ther e is mild narrowing in the medial knee joint compartment. IMPRESSION: No acute fracture is identified. Electronically signed by: Everette Hoover MD 10/13/2020 12:24 AM RADIOLOGY ASST Due to temporary technical issues with the PACS/Fluency reporting system, reports are being signed by the in house radiologists without review as a courtesy to insure prompt reporting. The interpreting radiologist is fully responsible for the content of the report.
== END 2020-10-13 01:24 | disposition home or self-care (01) ==
LOC: ER 21:26
DX: M25.562 Pain in left knee (principal); F17.210 Nicotine dependence, cigarettes, uncomplicated
CPT/HCPCS: 99284

== ENCOUNTER 2022-03-10 21:27 | Emergency (ER) | payer SELFPAY ==
--- OUTSIDE RECORDS SUMMARY | 2022-03-10 21:31 | XMS REPORT | Continuity of Care Document ---
:1990 Author Organization [facility] t Address [address] [place] [address] Care Team Providers Name Role Phone PCP, DOES NOT HAVE A Primary Care Physician Unavailable Luis JONES Attending Clinician Unavailable Luis Jones DO Attending Clinician Doctor Unassigned, Name Attending Clinician Unavailable Ezequiel CARSON S Attending Clinician Kendall Shea DO Attending Clinician Quinton MCKEON Attending Clinician Singer MCKEON Attending Clinician Dontrell DOBBS, F Attending Clinician Karen DOBBS, N Attending Clinician Giovanni JONES Attending Clinician Unavailable Darby Noyola Attending Clinician Payers Payer Name Policy Type Policy Number Effective Date Expiration Date S ource Problems Condition Condition Condition Status Onset Resolution Last Treating Co mments Source Name Details Category Date Date Treatment Clinician Date BMI BMI Disease Active 2016-09 Univers 50.0-59.9, 50.0-59.9, - it y of adult adult 00:00: [place] 00 Medical Branch Elevated Elevated Disease Active 2016-09 Unive rs blood blood 09-25 ity of pressure pressure 00:00: [place] reading reading 00 Medical without without Branch diagnosis diagnosis of of hypertensi hypertensi on on Depression Depression Disease Active 2015-09 U nivers , , 2-14 ity of unspecifie unspecifie 00:[place] d d 00 Medical depression depression Br anch type type UTI UTI Disease Active 2015-09 Univers (urinary (urinary 2-05 ity of tract tract 00:00: [place] infection) infection) 00 Me dical Branch Encounter Encounter Disease Active 2015-09 Uni vers for other for other 130 ity of general general 00:00: [place] counseling counseling 00 Me dical or advice or advice Bran ch on on contracept contracept ion ion Morbid Morbid Disease Active 2014-09 Univers obesity obesity 10-07 ity of 00:00: [place] 00 Medical Branch Screening Screening Disease Active 2014-09 Uni vers examinatio examinatio 10-07 it y of n for STD n for STD [place] ([place]ually (sexually 00 Medi ajay transmitte transmitte Br anch d disease) d disease) Allergies, Adverse Reactions, Alerts Allergy Allergy Status Severity Reaction(s) Onset Inactive Treating Comm ents Source Name Type Date Date Clinician NO KNOWN Drug Active Univers ALLERGIE Class ity of S [place] [facility] Social History Social Habit Start Date Stop Date Quantity Comments Source History of 2005-07-26 Cigarette Smoker Universi ty of tobacco use 00:00:00 [place] [facility] History SDOH University o f Alcohol Frequency [facility] edical Branch History SDOH University o f Alcohol Std [place] Medical Drinks Branch History SDUT University o f Alcohol Binge [place] Medic al Branch Exposure to Not sure University of SARS-CoV-2 [facility] (event) Branch Alcohol intake 2021-09-02 2021-09-02 0 /d University of 00:00:00 00:00:00 [place] [facility] Tobacco Comment 2015-08-07 2015-08-07 3-4 cigarettes Unive rsity of 00:00:00 00:00:00 per day [place] [facility] Alcohol Comment 2015-08-07 2015-08-07 socially Universit y of 00:00:00 00:00:00 [place] [facility] Tobacco use and 2015-08-07 2015-08-07 Never used Universit y of exposure 00:00:00 00:00:00 [place] [facility] Sex [birth year] At [birth year] Universit y of 00:00:00 00:00:00 [place] [facility] Smoking Status Start Date Stop Date Source Current every day smoker 2015-08-07 00:00:00 Uni versity of [place] [facility] Medications Ordered Filled Start Stop Current Ordering Indication Dosage Frequency Signature Comments Components Source Medication Medication Date Date Medication? Clinician (SIG) Name Name chadwick 2020-09- No 10mg 10 mg, Uni vers ne 2-15 12-15 Oral, ity of (DECADRON 14:15: 13:27 [place]CE, 1 [place] PHOSPHATE[place] 00 :00 dose, On Medic al injection [facility] Branch 10 mg 09/02/21 at 0815, STAT acetaminoph 2020-09- No 1000mg 1,000 mg, Univers en 2-15 12-15 Oral, ity of (TYLENOL) 13:00: 13:00 ONCE, [place] tablet 00 :00 dose, On Medical 1,000 mg [facility] 09/02/21 at 0700, JOSE albuterol 2020-09 Yes [id number] 2{puff} Inhale 2 Univers 90 2-14 Puffs ity of mcg/actuati 00:00: every 4 [place] as on inhaler 00 (four) Medical hours as Branch needed for Wheezing or Shortness of Breath. albuterol 2020-09 Yes [id number] 2{puff} Inhale 2 Univers 90 2-14 Puffs ity of mcg/actuati 00:00: every 4 [place] as on inhaler 00 (four) Medical hours as Branch needed for Wheezing or Shortness of Breath. amLODIPine 2020-09- No [id number] 5mg Take 1 Univers (NORVASC) 5 2-14 -14 tablet by it y of mg tablet 00:00: 05:59 mouth [place] 00 :00 daily for Medical 30 days. Branch amLODIPine 2020-09- No [id number] 5mg Take 1 Univers (NORVASC) 5 2-14 01-14 tablet by it y of mg tablet 00:00: 05:59 mouth [place] 00 :00 daily for Medical 30 days. Branch ketorolac 2020- No 60mg 60 mg, Unive rs (TORADOL) 02-09 Intramuscu ity of injection 13:00: 11:59 [place], ONCE, [place] 60 mg 00 :00 1 dose, Medical Mon Branch 02/09/21 at 0800, JOSE
Fa [facility] member approving Restricted medication : EZEQUIELLAVON Madai acetaminoph 2020- No 650mg 650 mg, U nivers en 02-09 05-24 Oral, ity of (TYLENOL) 12:30: 11:30 ONCE, 1 [place] tablet 650 00 :00 dose, Mon Medi ajay mg 02/09/21 at Branch 0730, JOES cephALEXin 0 Yes [id number] 500mg Take 1 Univers (KEFLEX) 5-24 [id number] capsule by ity of 500 mg 00:00: mouth 3 [place] capsule 00 (three) Medical times Branch daily. amLODIPine Yes [id number] 5mg Take 1 U nivers 5 mg tablet 5-24 tablet by ity of 00:00: mouth at [place] 00 bedtime. Medical Branch traMADoL Yes [id number] 50mg Take 1 Univers (ULTRAM) 50 5-24 tablet by ity of mg tablet 00:00: mouth [place] 00 every 6 Medical (six) Branch hours as needed for Pain (scale 7-10). Indication s: acute pain cephALEXin Yes [id number] 500mg Take 1 Univers (KEFLEX) 5-24 [id number] capsule by ity of 500 mg 00:00: mouth 3 [place] capsule 00 (three) Medical times Branch daily. amLODIPine Yes [id number] 5mg Take 1 U nivers 5 mg tablet 5-24 tablet by ity of 00:00: mouth at [place] 00 bedtime. Medical Branch traMADoL Yes [id number] 50mg Take 1 Univers (ULTRAM) 50 5-24 tablet by ity of mg tablet 00:00: mouth [place] 00 every 6 Medical (six) Branch hours as needed for Pain (scale 7-10). Indication s: acute pain cephALEXin 0 Yes [id number] 500mg Take 1 Univers (KEFLEX) 5-24 [id number] capsule by ity of 500 mg 00:00: mouth 3 [place] capsule 00 (three) Medical times Branch daily. cephALEXin 0 Yes [id number] 500mg Take 1 Univers (KEFLEX) 5-24 [id number] capsule by ity of 500 mg 00:00: mouth 3 [place] capsule 00 (three) Medical times Branch daily. amLODIPine 2020- No [id number] 5mg Take 1 Univers 5 mg tablet 02-09 12-14 tablet by it y of 00:00: 00:00 mouth at [place] 00 :00 bedtime. Medical Branch traMADoL 2020- No [id number] 50mg Take 1 Univer s (ULTRAM) 50 5-24 12-14 tablet by it y of mg tablet 00:00: 00:00 mouth [place] 00 :00 every 6 Medical (six) Branch hours as needed for Pain (scale 7-10). Indication s: acute pain ketorolac 2020- No 15mg 15 mg, Unive rs (TORADOL) 10-09 Intramuscu ity of injection 14:00: 13:38 lar, ONCE, [place] 15 mg 00 :00 1 dose, Medical [place] Branch 10/09/20 at 0800, JOSE
Fa [facility] member approving Restricted medication : THERESA ALCANTARA proMETHazin No 25mg 25 mg, IV Univers e 10-09 Piggyback, ity of (PHENERGAN) 14:00: 13:39 ONCE, 1 [place] 25 mg in 00 :00 dose, [place] Medica l NaCl 0.9% 10/09/20 at Bran ch (NS) 50 mL 0800, 50 piggyback mL acetaminoph 2019-09- No 1000mg 1,000 mg, Univers en 10-14 Oral, ity of (TYLENOL) 07:45: 06:39 ONCE, 1 [place] tablet 00 :00 dose, [facility] Medical 1,000 mg 08/14/20 Branch at 0145, JOSE dexamethaso 2019-09- No 10mg 10 mg, Uni vers ne 10-14 Intramuscu ity of (DECADRON 07:00: 06:07 lar, ONCE, [place] PHOSPHATE) 00 :00 1 dose, Medica l injection [facility] Branch 10 mg 08/14/20 at 0100, STAT ketorolac 2019-09- No 60mg 60 mg, Unive rs (TORADOL) 10-14 Intramuscu ity of injection 07:00: 06:08 lar, ONCE, [place] 60 mg 00 :00 1 dose, Medical [place] [facility] 08/14/20 at 0100, JOSE
Fa culty member approving Restricted medication : AIRAM CARRILLO cyclobenzap 2019-09 Yes [id number] 10mg Take 1 Univers rine 10 mg 1-26 tablet by ity of tablet 00:00: mouth 3 [place] 00 (three) Medical times Branch daily as needed for Muscle Spasms. ibuprofen 2019-09 Yes [id number] 800mg Take 1 U nivers 800 mg 1-26 tablet by ity of tablet 00:00: mouth [place] 00 every 6 Medical (six) Branch hours as needed for Pain (scale 4-6). cyclobenzap 2019-09 Yes [id number] 10mg Take 1 Univers rine 10 mg 1-26 tablet by ity of tablet 00:00: mouth 3 [place] 00 (three) Medical times Branch daily as needed for Muscle Spasms. ibuprofen 2019-09 Yes [id number] 800mg Take 1 U nivers 800 mg 1-26 tablet by ity of tablet 00:00: mouth [place] 00 every 6 Medical (six) Branch hours as needed for Pain (scale 4-6). cyclobenzap 2019-09 Yes [id number] 10mg Take 1 Univers rine 10 mg 1-26 tablet by ity of tablet 00:00: mouth 3 [place] 00 (three) Medical times Branch daily as needed for Muscle Spasms. ibuprofen 2019-09 Yes [id number] 800mg Take 1 U nivers 800 mg 1-26 tablet by ity of tablet 00:00: mouth [place] 00 every 6 Medical (six) Branch hours as needed for Pain (scale 4-6). cyclobenzap 2019-09 Yes [id number] 10mg Take 1 Univers rine 10 mg 1-26 tablet by ity of tablet 00:00: mouth 3 [place] 00 (three) Medical times Branch daily as needed for Muscle Spasms. ibuprofen 2019-09 Yes [id number] 800mg Take 1 U nivers 800 mg 1-26 tablet by ity of tablet 00:00: mouth [place] 00 every 6 Medical (six) Branch hours as needed for Pain (scale 4-6). ibuprofen 2019-09 Yes [id number] 800mg Take 1 U nivers 800 mg 1-26 tablet by ity of tablet 00:00: mouth [place] 00 every 6 Medical (six) Branch hours as needed for Pain (scale 4-6). ibuprofen Yes [id number] 800mg Take 1 U nivers 800 mg 1-26 tablet by ity of tablet 00:00: mouth [place] 00 every 6 Medical (six) Branch hours as needed for Pain (scale 4-6). ibuprofen 2020- Yes [id number] 800mg Take 1 U nivers 800 mg 1-26 tablet by ity of tablet 00:00: mouth [place] 00 every 6 Medical (six) Branch hours as needed for Pain (scale 4-6). ibuprofen 2019- Yes [id number] 800mg Take 1 U nivers 800 mg 1-26 tablet by ity of tablet 00:00: mouth [place] 00 every 6 Medical (six) Branch hours as needed for Pain (scale 4-6). cyclobenzap 2019-2020- No [id number] 10mg Take 1 Univers rine 10 mg 1-26 05-24 tablet by ity of tablet 00:00: 00:00 mouth 3 [place] 00 :00 (three) Medical times Branch daily as needed for Muscle Spasms. metroNIDAZO 2020-0 2020- No [id number] 2000mg Take 4 Univers LE (FLAGYL) 8-17 08-18 tablets by i ty of 500 mg 00:00: 04:59 mouth [place] tablet 00 :00 now for 1 Medical dose. Branch diclofenac 2020-0 Yes TAKE 1 Unive rs 75 mg EC 6-24 TABLET BY ity of tablet 00:00: MOUTH [place] 00 TWICE Medical DAILY Branch NEEDED diclofenac 2020-0 Yes TAKE 1 Unive rs 75 mg EC 6-24 TABLET BY ity of tablet 00:00: MOUTH [place] 00 TWICE Medical DAILY Branch NEEDED diclofenac 2020-0 Yes TAKE 1 Unive rs 75 mg EC 6-24 TABLET BY ity of tablet 00:00: MOUTH [place] 00 TWICE Medical DAILY Branch NEEDED diclofenac 2020-0 Yes TAKE 1 Unive rs 75 mg EC 6-24 TABLET BY ity of tablet 00:00: MOUTH [place] 00 TWICE Medical DAILY Branch NEEDED diclofenac 2020-0 Yes TAKE 1 Unive rs 75 mg EC 6-24 TABLET BY ity of tablet 00:00: MOUTH [place] 00 TWICE Medical DAILY Branch NEEDED diclofenac 2020-0 Yes TAKE 1 Unive rs 75 mg EC 6-24 TABLET BY ity of tablet 00:00: MOUTH [place] 00 TWICE Medical DAILY Branch NEEDED diclofenac 2020-0 Yes TAKE 1 Unive rs 75 mg EC 6-24 TABLET BY ity of tablet 00:00: MOUTH [place] 00 TWICE Medical DAILY Branch NEEDED diclofenac 2020-0 Yes TAKE 1 Unive rs 75 mg EC 6-24 TABLET BY ity of tablet 00:00: MOUTH [place] 00 TWICE Medical DAILY Branch NEEDED diclofenac 2020-0 Yes TAKE 1 Unive rs 75 mg EC 6-24 TABLET BY ity of tablet 00:00: MOUTH [place] 00 TWICE Medical DAILY Branch NEEDED diclofenac 2020-0 Yes TAKE 1 Unive rs 75 mg EC 6-24 TABLET BY ity of tablet 00:00: MOUTH [place] 00 TWICE Medical DAILY Branch NEEDED diclofenac 2020-0 Yes TAKE 1 Unive rs 75 mg EC 6-24 TABLET BY ity of tablet 00:00: MOUTH [place] 00 TWICE Medical DAILY Branch NEEDED ketorolac 2018- 2019- No 60mg 60 mg, Unive rs (TORADOL) 04-25 08- Intramuscu ity of injection 03:15: 03:15 lar, ONCE, [place] 60 mg 00 :00 1 dose, Medical 04/24/19 Branch at 2215, JOSE
Fa culty member approving Restricted medication : Marta BELLO ibuprofen 2019-0 Yes [id number] 600mg Take 1 Univers 600 mg 8-06 tablet by ity of tablet 00:00: mouth [place] 00 every 6 Medical (six) Branch hours as needed for Pain (scale 4-6). ibuprofen 2019-0 Yes [id number] 600mg Take 1 Univers 600 mg 8-06 tablet by ity of tablet 00:00: mouth [place] 00 every 6 Medical (six) Branch hours as needed for Pain (scale 4-6). ibuprofen 2019-0 Yes [id number] 600mg Take 1 Univers 600 mg 8-06 tablet by ity of tablet 00:00: mouth [place] 00 every 6 Medical (six) Branch hours as needed for Pain (scale 4-6). ibuprofen 2019-0 Yes [id number] 600mg Take 1 Univers 600 mg 8-06 tablet by ity of tablet 00:00: mouth [place] 00 every 6 Medical (six) Branch hours as needed for Pain (scale 4-6). ibuprofen 2019-0 Yes [id number] 600mg Take 1 Univers 600 mg 8-06 tablet by ity of tablet 00:00: mouth [place] 00 every 6 Medical (six) Branch hours as needed for Pain (scale 4-6). ibuprofen 2019-0 Yes [id number] 600mg Take 1 Univers 600 mg 8-06 tablet by ity of tablet 00:00: mouth [place] 00 every 6 Medical (six) Branch hours as needed for Pain (scale 4-6). ibuprofen 2019-0 Yes [id number] 600mg Take 1 Univers 600 mg 8-06 tablet by ity of tablet 00:00: mouth [place] 00 every 6 Medical (six) Branch hours as needed for Pain (scale 4-6). ibuprofen 2019-0 Yes [id number] 600mg Take 1 Univers 600 mg 8-06 tablet by ity of tablet 00:00: mouth [place] 00 every 6 Medical (six) Branch hours as needed for Pain (scale 4-6). ibuprofen 2019-0 Yes [id number] 600mg Take 1 Univers 600 mg 8-06 tablet by ity of tablet 00:00: mouth [place] 00 every 6 Medical (six) Branch hours as needed for Pain (scale 4-6). ibuprofen 2018-0 Yes [id number] 600mg Take 1 Univers 600 mg 8-06 tablet by ity of tablet 00:00: mouth [place] 00 every 6 Medical (six) Branch hours as needed for Pain (scale 4-6). ibuprofen 2019-0 Yes [id number] 600mg Take 1 Univers 600 mg 8-06 tablet by ity of tablet 00:00: mouth [place] 00 every 6 Medical (six) Branch hours as needed for Pain (scale 4-6). ibuprofen 2018-0 Yes [id number] 600mg Take 1 Univers 600 mg 8-06 tablet by ity of tablet 00:00: mouth [place] 00 every 6 Medical (six) Branch hours as needed for Pain (scale 4-6). ibuprofen 2019-0 Yes [id number] 600mg Take 1 Univers 600 mg 8-06 tablet by ity of tablet 00:00: mouth [place] 00 every 6 Medical (six) Branch hours as needed for Pain (scale 4-6). methocarbam 2019-0 Yes [id number] 750mg Take 1 Univers ol 750 mg 5-26 tablet by ity o f tablet 00:00: mouth 4 [place] 00 (four) Medical times Branch daily. methocarbam 2019-0 Yes [id number] 750mg Take 1 Univers ol 750 mg 5-26 tablet by ity o f tablet 00:00: mouth 4 [place] 00 (four) Medical times Branch daily. methocarbam 2019-0 Yes [id number] 750mg Take 1 Univers ol 750 mg 5-26 tablet by ity o f tablet 00:00: mouth () Medical times Branch daily. methocarbam Yes [id number] 750mg Take 1 Univers ol 750 mg 5-26 tablet by ity o f tablet 00:00: mouth (four) Medical times Branch daily. methocarbam Yes [id number] 750mg Take 1 Univers ol 750 mg 5-26 tablet by ity o f tablet 00:00: mouth (four) Medical times Branch daily. methocarbam Yes [id number] 750mg Take 1 Univers ol 750 mg 5-26 tablet by ity o f tablet 00:00: mouth [facility] Medical times Branch daily. methocarbam Yes [id number] 750mg Take 1 Univers ol 750 mg 5-26 tablet by ity o f tablet 00:00: mouth [facility]) Medical times Branch daily. methocarbam Yes [id number] 750mg Take 1 Univers ol 750 mg 5-26 tablet by ity o f tablet 00:00: mouth [facility]) Medical times Branch daily. methocarbam Yes [id number] 750mg Take 1 Univers ol 750 mg 5-26 tablet by ity o f tablet 00:00: mouth [facility]) Medical times Branch daily. methocarbam Yes [id number] 750mg Take 1 Univers ol 750 mg 5-26 tablet by ity o f tablet 00:00: mouth [facility]) Medical times Branch daily. methocarbam Yes [id number] 750mg Take 1 Univers ol 750 mg 5-26 tablet by ity o f tablet 00:00: mouth [facility]) Medical times Branch daily. methocarbam Yes [id number] 750mg Take 1 Univers ol 750 mg 5-26 tablet by ity o f tablet 00:00: mouth [facility]) Medical times Branch daily. methocarbam Yes [id number] 750mg Take 1 Univers ol 750 mg 5-26 tablet by ity o f tablet 00:00: mouth [facility] Medical times Branch daily. benzonatate Yes [id number] 200mg Take 1 Univers 200 mg 3-20 capsule by ity of capsule 00:00: mouth 3 (three) Medical times Branch daily as needed for Cough. albuterol Yes [id number] 2{puff} Inhale 2 Univers 90 3-20 Puffs ity of mcg/actuati 00:00: every 4 [place] on inhaler 00 (four) Medical hours as Branch needed for Wheezing, Shortness of Breath, Bronchospa sm or Chest tightness. benzonatate Yes [id number] 200mg Take 1 Univers 200 mg 3-20 capsule by ity of capsule 00:00: mouth (three) Medical times Branch daily as needed for Cough. albuterol Yes [id number] 2{puff} Inhale 2 Univers 90 3-20 Puffs ity of mcg/actuati 00:00: every 4 [place] on inhaler 00 (four) Medical hours as Branch needed for Wheezing, Shortness of Breath, Bronchospa sm or Chest tightness. benzonatate Yes [id number] 200mg Take 1 Univers 200 mg 3-20 capsule by ity of capsule 00:00: mouth (three) Medical times Branch daily as needed for Cough. albuterol Yes [id number] 2{puff} Inhale 2 Univers 90 3-20 Puffs ity of mcg/actuati 00:00: every 4 [place] on inhaler 00 (four) Medical hours as Branch needed for Wheezing, Shortness of Breath, Bronchospa sm or Chest tightness. benzonatate Yes [id number] 200mg Take 1 Univers 200 mg 3-20 capsule by ity of capsule 00:00: mouth 3 (three) Medical times Branch daily as needed for Cough. albuterol Yes [id number] 2{puff} Inhale 2 Univers 90 3-20 Puffs ity of mcg/actuati 00:00: every 4 [place] on inhaler 00 (four) Medical hours as Branch needed for Wheezing, Shortness of Breath, Bronchospa sm or Chest tightness. benzonatate Yes [id number] 200mg Take 1 Univers 200 mg 3-20 capsule by ity of capsule 00:00: mouth 3 (three) Medical times Branch daily as needed for Cough. albuterol Yes [id number] 2{puff} Inhale 2 Univers 90 3-20 Puffs ity of mcg/actuati 00:00: every 4 [place] as on inhaler 00 (four) Medical hours as Branch needed for Wheezing, Shortness of Breath, Bronchospa sm or Chest tightness. benzonatate 2018- Yes [id number] 200mg Take 1 Univers 200 mg 3-20 capsule by ity of capsule 00:00: mouth 3 (three) Medical times Branch daily as needed for Cough. albuterol Yes [id number] 2{puff} Inhale 2 Univers 90 3-20 Puffs ity of mcg/actuati 00:00: every 4 [place] on inhaler 00 (four) Medical hours as Branch needed for Wheezing, Shortness of Breath, Bronchospa sm or Chest tightness. benzonatate Yes [id number] 200mg Take 1 Univers 200 mg 3-20 capsule by ity of capsule 00:00: mouth (three) Medical times Branch daily as needed for Cough. albuterol Yes [id number] 2{puff} Inhale 2 Univers 90 3-20 Puffs ity of mcg/actuati 00:00: every 4 [place] on inhaler 00 (four) Medical hours as Branch needed for Wheezing, Shortness of Breath, Bronchospa sm or Chest tightness. benzonatate Yes [id number] 200mg Take 1 Univers 200 mg 3-20 capsule by ity of capsule 00:00: mouth (three) Medical times Branch daily as needed for Cough. albuterol Yes [id number] 2{puff} Inhale 2 Univers 90 3-20 Puffs ity of mcg/actuati 00:00: every 4 [place] as on inhaler 00 (four) Medical hours as Branch needed for Wheezing, Shortness of Breath, Bronchospa sm or Chest tightness. benzonatate 2018-0 Yes [id number] 200mg Take 1 Univers 200 mg 3-20 capsule by ity of capsule 00:00: mouth 3 (three) Medical times Branch daily as needed for Cough. benzonatate 2018- Yes [id number] 200mg Take 1 Univers 200 mg 3-20 capsule by ity of capsule 00:00: mouth 3 (three) Medical times Branch daily as needed for Cough. levoFLOXaci 2019-0 Yes [id number] 500mg Take 1 Univers n 3-20 tablet by ity of (LEVAQUIN) 00:00: mouth [place] 500 mg 00 every 24 Medical tablet (twenty-fo Branch ur) hours. benzonatate 2019- Yes [id number] 200mg Take 1 Univers 200 mg 3-20 capsule by ity of capsule 00:00: mouth 3 (three) Medical times Branch daily as needed for Cough. albuterol Yes [id number] 2{puff} Inhale 2 Univers 90 3-20 Puffs ity of mcg/actuati 00:00: every 4 [place] on inhaler 00 (four) Medical hours as Branch needed for Wheezing, Shortness of Breath, Bronchospa sm or Chest tightness. levoFLOXaci 2018- Yes [id number] 500mg Take 1 Univers n 3-20 tablet by ity of (LEVAQUIN) 00:00: mouth [place] 500 mg 00 every 24 Medical tablet (twenty-fo Branch ur) hours. benzonatate Yes [id number] 200mg Take 1 Univers 200 mg 3-20 capsule by ity of capsule 00:00: mouth (three) Medical times Branch daily as needed for Cough. albuterol Yes [id number] 2{puff} Inhale 2 Univers 90 3-20 Puffs ity of mcg/actuati 00:00: every 4 [place] on inhaler 00 (four) Medical hours as Branch needed for Wheezing, Shortness of Breath, Bronchospa sm or Chest tightness. benzonatate 2018- Yes [id number] 200mg Take 1 Univers 200 mg 3-20 capsule by ity of capsule 00:00: mouth 3 (three) Medical times Branch daily as needed for Cough. albuterol 2018- Yes [id number] 2{puff} Inhale 2 Univers 90 3-20 Puffs ity of mcg/actuati 00:00: every 4 [place] as on inhaler 00 (four) Medical hours as Branch needed for Wheezing, Shortness of Breath, Bronchospa sm or Chest tightness. albuterol 2020- No [id number] 2{puff} Inhale 2 Univers 90 3-20 12-14 Puffs ity of mcg/actuati 00:00: 00:00 every 4 [place] on inhaler 00 :00 (four) Medical hours as Branch needed for Wheezing, Shortness of Breath, Bronchospa sm or Chest tightness. levoFLOXaci 2018-2019- No [id number] 500mg Take 1 Univers n 3-20 08-13 tablet by ity of (LEVAQUIN) 00:00: 00:00 mouth [place] 500 mg 00 :00 every 24 Medical tablet (twenty-fo Branch ur) hours. levoFLOXaci 2019- No [id number] 500mg Take 1 Univers n 3-20 08-13 tablet by ity of (LEVAQUIN) 00:00: 00:00 mouth [place] 500 mg 00 :00 every 24 Medical tablet (twenty-fo Branch ur) hours. ibuprofen 2019- No [id number] 800mg Take 1 Univers 800 mg 3-20 08-06 tablet by ity of tablet 00:00: 00:00 mouth [place] 00 :00 every 8 Medical (eight) Branch hours as needed for Pain (scale 4-6). traMADOL 50 Yes [id number] 50mg Take 1 Univers mg tablet 2-11 tablet by ity o f 00:00: mouth [place] 00 every 6 Medical (six) Branch hours as needed for Pain (scale 4-6). traMADOL 50 0 Yes [id number] 50mg Take 1 Univers mg tablet 2-11 tablet by ity o f 00:00: mouth [place] 00 every 6 Medical (six) Branch hours as needed for Pain (scale 4-6). traMADOL 50 2018-0 Yes [id number] 50mg Take 1 Univers mg tablet 2-11 tablet by ity o f 00:00: mouth [place] 00 every 6 Medical (six) Branch hours as needed for Pain (scale 4-6). traMADOL 50 2019-0 Yes [id number] 50mg Take 1 Univers mg tablet 2-11 tablet by ity o f 00:00: mouth [place] 00 every 6 Medical (six) Branch hours as needed for Pain (scale 4-6). traMADOL 50 2018- Yes [id number] 50mg Take 1 Univers mg tablet 2-11 tablet by ity o f 00:00: mouth [place] 00 every 6 Medical (six) Branch hours as needed for Pain (scale 4-6). traMADOL 50 2019-0 Yes [id number] 50mg Take 1 Univers mg tablet 2-11 tablet by ity o f 00:00: mouth [place] 00 every 6 Medical (six) Branch hours as needed for Pain (scale 4-6). traMADOL 50 2019-0 Yes [id number] 50mg Take 1 Univers mg tablet 2-11 tablet by ity o f 00:00: mouth [place] 00 every 6 Medical (six) Branch hours as needed for Pain (scale 4-6). traMADOL 50 2019-0 Yes [id number] 50mg Take 1 Univers mg tablet 2-11 tablet by ity o f 00:00: mouth [place] 00 every 6 Medical (six) Branch hours as needed for Pain (scale 4-6). traMADOL 50 2019-0 Yes [id number] 50mg Take 1 Univers mg tablet 2-11 tablet by ity o f 00:00: mouth [place] 00 every 6 Medical (six) Branch hours as needed for Pain (scale 4-6). traMADOL 50 2019-0 Yes [id number] 50mg Take 1 Univers mg tablet 2-11 tablet by ity o f 00:00: mouth [place] 00 every 6 Medical (six) Branch hours as needed for Pain (scale 4-6). traMADOL 50 2019-0 Yes [id number] 50mg Take 1 Univers mg tablet 2-11 tablet by ity o f 00:00: mouth [place] 00 every 6 Medical (six) Branch hours as needed for Pain (scale 4-6). traMADOL 50 2018-2020- No [id number] 50mg Take 1 Univers mg tablet 2-11 12-14 tablet by ity of 00:00: 00:00 mouth [place] 00 :00 every 6 Medical (six) Branch hours as needed for Pain (scale 4-6). ibuprofen 2018- 2019- No [id number] 800mg Take 1 Univers 800 mg 2-11 08-06 tablet by ity of tablet 00:00: 00:00 mouth [place] 00 :00 every 8 Medical (eight) Branch hours. albuterol 2017- Yes 2{puff} Inhale 2 U nivers 90 2-13 Puffs ity of mcg/actuati 00:00: every 4 [place] as on inhaler 00 (four) Medical hours as Branch needed for Wheezing or Shortness of Breath. benzonatate 2018-0 Yes 100mg Take 1 Uni vers 100 mg 2-13 capsule by ity of capsule 00:00: mouth 3 [place] 00 (three) Medical times Branch daily as needed for Cough. traMADOL 50 2018-0 Yes 50mg Take 1 Univ ers mg tablet 2-13 tablet by ity o f 00:00: mouth [place] 00 every 6 Medical (six) Branch hours as needed for Pain (scale 4-6). albuterol 2018-0 Yes 2{puff} Inhale 2 U nivers 90 2-13 Puffs ity of mcg/actuati 00:00: every 4 [place] as on inhaler 00 (four) Medical hours as Branch needed for Wheezing or Shortness of Breath. benzonatate 2018-0 Yes 100mg Take 1 Uni vers 100 mg 2-13 capsule by ity of capsule 00:00: mouth 3 [place] 00 (three) Medical times Branch daily as needed for Cough. traMADOL 50 2018-0 Yes 50mg Take 1 Univ ers mg tablet 2-13 tablet by ity o f 00:00: mouth [place] 00 every 6 Medical (six) Branch hours as needed for Pain (scale 4-6). albuterol 2018-0 2020- No 2{puff} Inhale 2 Univers 90 2-13 08-13 Puffs ity of mcg/actuati 00:00: 00:00 [place] 4 [place] inhaler 00 :00 (four) Medical hours as Branch needed for Wheezing or Shortness of Breath. benzonatate 2018-0 2020- No 100mg Take 1 Un jerzy 100 mg 2-13 08-13 capsule by ity of capsule 00:00: 00:00 mouth 3 [place] 00 :00 (three) Medical times Branch daily as needed for Cough. traMADOL 50 2018-0 2020- No 50mg Take 1 Uni vers mg tablet 2-13 08-13 tablet by ity of 00:00: 00:00 mouth [place] 00 :00 every 6 Medical (six) Branch hours as needed for Pain (scale 4-6). albuterol 2018-0 2020- No 2{puff} Inhale 2 Univers 90 2-13 08-13 Puffs ity of mcg/actuati 00:00: 00:00 [place] 4 [place] inhaler 00 :00 (four) Medical hours as Branch needed for Wheezing or Shortness of Breath. benzonatate 2018-0 2020- No 100mg Take 1 Un jerzy 100 mg 11-01 capsule by ity of capsule 00:00: 00:00 mouth 3 [place] 00 :00 (three) Medical times Branch daily as needed for Cough. traMADOL 50 2019- No 50mg Take 1 Uni vers mg tablet 11-01 tablet by ity of 00:00: 00:00 mouth [place] 00 :00 every 6 Medical (six) Branch hours as needed for Pain (scale 4-6). ibuprofen 2016-09- No 600mg Take 1 Univ ers 600 mg 04-24 tablet by ity of tablet 00:00: 00:00 mouth [place] 00 :00 every 6 Medical (six) Branch hours as needed for Pain (scale 4-6). Immunizations Ordered Filled Immunization Date Status Comments [facility] e Immunization Name Name [facility] 2012-02-18 Completed University of 00:00:00 [facility] 2012-02-18 Completed University of 00:00:00 [facility] 2012-02-18 Completed University of 00:00:00 [facility] 2012-02-18 Completed University of 00:00:00 [facility] 2012-02-18 Completed University of 00:00:00 [facility] 2012-02-18 Completed University of 00:00:00 [facility] 2012-02-18 Completed University of 00:00:00 [facility] 2012-02-18 Completed University of 00:00:00 [facility] 2012-02-18 Completed University of 00:00:00 [facility] 2012-02-18 Completed University of 00:00:00 [facility] 2012-02-18 Completed University of 00:00:00 [facility] 2012-02-18 Completed University of 00:00:00 [facility] 2012-02-18 Completed University of 00:00:00 [facility] Vital Signs Vital Name Observation Time Observation Value Comments Source Systolic blood 2021-09-02 178 mm[Hg] University of pressure 12:46:00 [facility] Diastolic blood 2021-09-02 99 mm[Hg] University o f pressure 12:46:00 [facility] Heart rate 2021-09-02 101 /min University of 12:46:00 [facility] Body temperature 2021-09-02 38.94 Jeanne University of 12:46:00 [facility] Respiratory rate 2021-09-02 18 /min University of 12:46:00 [facility] Body height 2021-09-02 170.2 cm University of 12:46:00 [facility] Body weight 2021-09-02 158.759 kg University of 12:46:00 [facility] BMI 2021-09-02 54.82 kg/m2 University of 12:46:00 [facility] Oxygen saturation 2021-09-02 96 /min University of in Arterial blood 12:46:00 [facility] by Pulse oximetry Branch Systolic blood 2021-09-01 151 mm[Hg] University of pressure 20:50:00 [place] [facility] Diastolic blood 2021-09-01 94 mm[Hg] University o f pressure 20:50:00 [facility] Heart rate 2021-09-01 91 /min University of 20:50:00 [facility] Body temperature 2021-09-01 37.56 Jeanne University of 20:50:00 [place] [facility] Respiratory rate 2021-09-01 18 /min University of 20:50:00 [facility] Body height 2021-09-01 170.2 cm University of 20:50:00 [facility] Body weight 2021-09-01 181.439 kg University of 20:50:00 [facility] BMI 2021-09-01 62.65 kg/m2 University of 20:50:00 [place] [facility] Oxygen saturation 2021-09-01 100 /min University of in Arterial blood 20:50:00 [facility] by Pulse oximetry Branch Heart rate 2021-02-09 84 /min University of 11:28:00 [place] [facility] Oxygen saturation 2021-02-09 96 /min University of in Arterial blood 11:28:00 [facility] by Pulse oximetry Branch Systolic blood 2021-02-09 174 mm[Hg] University of pressure 11:27:00 [place] [facility] Diastolic blood 2021-02-09 116 mm[Hg] University o f pressure 11:27:00 [place] [facility] Body temperature 2021-02-09 36.83 Jeanne Simultaneous University of 11:19:00 filing. User may [place] [facility] al not have seen Branch previous data. Respiratory rate 2021-02-09 18 /min University of 11:19:00 [place] [facility] Body height 2021-02-09 167.6 cm University of 11:19: [facility] Body weight 2021-02-09 158.714 kg University of 11:19: [facility] BMI 2021-02-09 56.48 kg/m2 University of 11:19:00 [place] [facility] Systolic blood 2020-10-09 149 mm[Hg] University of pressure 13:00:00 [place] [facility] Diastolic blood 2020-10-09 94 mm[Hg] University o f pressure 13:00:00 [place] [facility] Heart rate 2020-10-09 79 /min University of 13:00:00 [place] [facility] Respiratory rate 2020-10-09 18 /min University of 13:00:00 [place] [facility] Oxygen saturation 2020-10-09 100 /min University of in Arterial blood 13:00:00 [place] [facility] by Pulse oximetry Branch Body temperature 2020-10-09 37 Jeanne University of 12:23:00 [place] [facility] Body height 2020-10-09 167.6 cm University of 12:23:00 [place] [facility] Body weight 2020-10-09 167.831 kg University of 12:23:00 [facility] BMI 2020-10-09 59.72 kg/m2 University of 12:23:00 [place] [facility] Systolic blood 2020-10-09 149 mm[Hg] University of pressure 13:00:00 [place] [facility] Diastolic blood 2020-10-09 94 mm[Hg] University o f pressure 13:00:00 [place] [facility] Heart rate 2020-10-09 79 /min University of 13:00:00 [place] [facility] Respiratory rate 2020-10-09 18 /min University of 13:00:00 [place] [facility] Oxygen saturation 2020-10-09 100 /min University of in Arterial blood 13:00:00 [place] [facility] by Pulse oximetry Branch Body temperature 2020-10-09 37 Jeanne University of 12:23:00 [place] [facility] Body height 2020-10-09 167.6 cm University of 12:23:00 [place] [facility] Body weight 2020-10-09 167.831 kg University of 12:23:00 [place] [facility] BMI 2020-10-09 59.72 kg/m2 University of 12:23:00 [place] [facility] Systolic blood 2020-08-14 151 mm[Hg] University of pressure 06:46:00 [place] [facility] Diastolic blood 2020-08-14 92 mm[Hg] University o f pressure 06:46:00 [place] [facility] Heart rate 2020-08-14 85 /min University of 06:46:00 [facility] Branch Respiratory rate 2020-08-14 20 /min University of 06:46:00 [place] [facility] Oxygen saturation 2020-08-14 97 /min University of in Arterial blood 06:46:00 [place] [facility] by Pulse oximetry Branch Body temperature 2020-08-14 37.72 Jeanne University of 05:53:31 [place] [facility] Body weight 2020-08-14 167.831 kg University of 05:50:00 [place] [facility] BMI 2020-08-14 57.95 kg/m2 University of 05:50:00 [place] [facility] Systolic blood 2020-08-14 151 mm[Hg] University of pressure 06:46:00 [place] [facility] Diastolic blood 2020-08-14 92 mm[Hg] University o f pressure 06:46:00 [place] [facility] Heart rate 2020-08-14 85 /min University of 06:46:00 [place] [facility] Respiratory rate 2020-08-14 20 /min University of 06:46:00 [place] [facility] Oxygen saturation 2020-08-14 97 /min University of in Arterial blood 06:46:00 [facility] ajay by Pulse oximetry Branch Body temperature 2020-08-14 37.72 Jeanne University of 05:53:31 [place] [facility] Body weight 2020-08-14 167.831 kg University of 05:50:00 [place] [facility] BMI 2020-08-14 57.95 kg/m2 University of 05:50:00 [place] [facility] Body temperature 2020-05-01 36.94 Jeanne University of 13:17:00 [place] [facility] Respiratory rate 2020-05-01 16 /min University of 13:17:00 [place] [facility] Body height 2020-05-01 170.2 cm University of 13:17:00 [place] [facility] Body weight 2020-05-01 159.326 kg University of 13:17:00 [place] [facility] BMI 2020-05-01 55.01 kg/m2 University of 13:17:00 [place] [facility] Systolic blood 2020-05-01 141 mm[Hg] University of pressure 13:17:00 [place] [facility] Diastolic blood 2020-05-01 92 mm[Hg] University o f pressure 13:17:00 [facility] Heart rate 2020-05-01 75 /min [facility] 13:17:00 [facility] Body temperature 2020-05-01 36.94 Jeanne [facility] 13:17:00 [facility] Respiratory rate 2020-05-01 16 /min [facility] 13:17:00 [facility] Body height 2020-05-01 170.2 cm [facility] 13:17:00 [facility] Body weight 2020-05-01 159.326 kg [facility] 13:17:00 [facility] BMI 2020-05-01 55.01 kg/m2 University 13:17:00 [place] [facility] Systolic blood 2020-05-01 141 mm[Hg] University of pressure 13:17:00 [place] [facility] Diastolic blood 2020-05-01 92 mm[Hg] University o f pressure 13:17:00 [place] [facility] Heart rate 2020-05-01 75 /min [facility] 13:17:00 [facility] Systolic blood 2019-04-25 164 mm[Hg] University of pressure 00:34:00 [place] [facility] Diastolic blood 2019-04-25 90 mm[Hg] University o f pressure 00:34:00 [facility] Heart rate 2019-04-25 95 /min [facility] 00:34:00 [facility] Body temperature 2019-04-25 37.17 Jeanne [facility] 00:34:00 [facility] Respiratory rate 2019-04-25 18 /min [facility] 00:34:00 [facility] Body height 2019-04-25 170.2 cm [facility] 00:34:00 [facility] Body weight 2019-04-25 161.072 kg [facility] 00:34:00 [facility] BMI 2019-04-25 55.62 kg/m2 [facility] 00:34:00 [facility] Oxygen saturation 2019-04-25 99 /min [facility] in Arterial blood 00:34:00 [facility] by Pulse oximetry Branch Procedures Procedure Date / Time Performed Performing Clinician [facility] e CONSENT/REFUSAL FOR 2021-09-02 12:42:21 Doctor Unassigned, No [facility] AND Name Medical Branch TREATMENT ASSIGNMENT OF BENEFITS 2021-09-01 21:01:09 Doctor Unassigned, No [facility] Name Medical Branch NOTICE OF PRIVACY 2021-09-01 20:19:48 Doctor Unassigned, No Univ [facility] PRACTICES Name Medical Branch CONSENT/REFUSAL FOR 2021-09-01 20:19:20 Doctor Unassigned, No [facility] [place] DIAGNOSIS AND Name Medical [place] TREATMENT XR HAND 3+ VW RIGHT 2021-02-09 11:33:29 Lavon Nieves [facility] NOTICE OF PRIVACY 2021-02-09 11:15:53 Doctor Unassigned, No [facility] CONSENT/REFUSAL FOR 2021-02-09 11:13:48 Doctor Unassigned, No Un [facility] [place] DIAGNOSIS AND Name [facility] TREATMENT NOTICE OF PRIVACY 2020-10-09 12:16:21 Doctor Unassigned, No [facility] CONSENT/REFUSAL FOR 2020-10-09 12:15:21 Doctor Unassigned, No Un [facility] [place] DIAGNOSIS AND Name [facility] TREATMENT POCT TEST 2020-08-14 06:01:00 Airam Carrillo [facility] ASSIGNMENT OF BENEFITS 2020-05-01 12:50:33 Doctor Unassigned, No [facility] XR WRIST 3+ VW LEFT 2019-04-25 01:10:18 Marta Bello [facility] Encounters Start End Encounter Admission Attending Care Care Encounter Source Date/Time Date/Time Type Type Clinicians Facility Department ID 2021-07-19 Emergency [facility] [id number] Univers 20:46:34 ity of [place] [facility] 2021-07-18 Emergency [facility] [id number] Univers 18:28:29 ity of [place] [facility] 2021-07-18 Emergency [facility] [id number] Univers 07:53:56 ity of [place] [facility] 2021-09-02 2021-09-02 Emergency X KAREN TXKARYN ERT [id number] Univers 06:37:00 07:51:00 ANAT rodríguez of [facility] 2021-09-02 2021-09-02 Emergency [facility] [id number] Univers 06:37:00 07:51:00 Anat ZIMMER [id number] ity [facility] [id number] [facility] [id number] [facility] 084 Branch 2021-09-01 2021-09-01 Emergency [facility] ERT [id number] Univers 14:51:00 15:14:00 ANAT ity of [place] [facility] 2021-09-01 2021-09-01 Emergency [facility] [id number] Univers 14:51:00 15:14:00 Anat Smith GORAN [id number] ity of [place] [id number] [facility] [id number] [facility] 084 Branch 2021-09-01 2021-09-01 Orders Doctor ASHANTI [id number] Univers 00:00:00 00:00:00 Only Unassigned, JOAQUÍN [id number] ity of [place] [facility] [id number] [place] [id number] [place] [address] Branch 2021-02-09 2021-02-09 Emergency [facility] [id number] Univers 06:22:00 07:34:00 Lavon Zimmer [id number] ity of [place] [id number] [facility] [id number] [facility] 084 Branch 2020-12-09 2020-12-09 Patient [facility] [id number] Univers 00:00:00 00:00:00 Outreach Lenin PRIMARY [id number] i ty of [facility] [id number] [place] [id number] La dical 388 Branch 2020-10-09 2020-10-09 Emergency Theresa Alcantara [facility] 1.2.8 40.114 [id number] Univers 06:19:00 08:57:00 Christopher Flores [id number] ity of [place] [id number] [facility] [id number] [facility] 084 Branch 2020-10-09 2020-10-09 Emergency Theresa Alcantara [facility] 1.2.8 40.114 [id number] 06:19:00 08:57:00 Christopher Flores [id number] [place] [id number] [place] [id number] 2020-10-09 2020-10-09 Orders Doctor ASHANTI 1.2.840.114 [id number] Univers 00:00:00 00:00:00 Only Unassigned, JOAQUÍN [id number] ity of [place] [facility] [id number] [place] as [id number] [facility] 009 [place] 2020-10-09 2020-10-09 Orders Doctor ASHANTI 1.2.840.114 [id number] 00:00:00 00:00:00 Only Unassigned, JOAQUÍN [id number] [place] [facility] [id number] [id number] [facility] 2020-08-13 2020-08-14 Emergency [facility] 1.2.840.114 [id number] [facility] 23:46:00 00:58:00 Airam Zimmer [id number] ity of [place] [id number] [facility] [id number] [address] 2020-08-13 2020-08-14 Emergency [facility] 1.2.840.114 [id number] 23:46:00 00:58:00 Airam Zimmer [id number] [place] [id number] [place] [id number] [facility] 2020-05-05 2020-05-05 Telephone Karen TXKARYN 1.2.840.114 [id number] Univers 00:00:00 00:00:00 Laxmi Davila [employer] [id number] it y of [facility] [id number] [place] as MATERNAL [id number] Med ical & CHILD [address] [place] [address] 2020-05-05 2020-05-05 Telephone Karen TXKARYN 1.2.840.114 [id number] 00:00:00 00:00:00 Laxmi N [employer] [id number] REGIONAL [id number] MATERNAL [id number] & CHILD 107 [facility] 2020-05-01 2020-05-01 Office [facility] [id number] Univers 07:54:53 08:58:33 Visit Laxmi Davila [employer] [id number] it y of [facility] [id number] [place] as MATERNAL [id number] Med ical & CHILD [address] [place] [address] 2020-05-01 2020-05-01 Office [facility] [id number] 07:54:53 08:58:33 Visit Laxmi Davila [employer] [id number] REGIONAL [id number] MATERNAL [id number] & CHILD [address] [place] [address] 2020-05-01 2020-05-01 Outpatient Lisa JONES [facility] [id number] Univers 08:00:00 08:00:00 LAXMI [id number] [facility] [place] [facility] 2020-05-01 2020-05-01 Outpatient Lisa JONES [facility] [id number] Univers 08:00:00 08:00:00 LAXMI [facility] [place] [facility] 2020-05-01 2020-05-01 Orders Doctor ASHANTI 1.2.840.114 [id number] Univers 00:00:00 00:00:00 Only Unassigned, JOAQUÍN [id number] ity of [place] [facility] [id number] [place] as [id number] [place] [address] Branch 2019-04-24 2019-04-24 Emergency Marta Bello [facility] 1.2.840.114 [id number] Univers 20:31:49 22:36:00 Darby Zimmer [id number] i ty [facility] [id number] [place] [facility] [id number] [address] Results Test Description Test Time Test Comments Results Result Comments Source POCT TEST 2020-08-14 06:01:00 Test Item Value Reference Range Interpretation Comme nts POCT PREG (test code = 1605) negative On board controls acceptable with C Line (test code = 3574) present POCT PREG LOT # (test code = 3575) [id number] POCT PREG TEST DATE (test code = 3576) 2022-01-16 Lab Interpretation (test code = 96836-7) [facility] [id number] 01:17:00 No acute bony abnormality. Becka Myers MD., have reviewed this study and agree with theabove report. EXAM: XR WRIST 3+ VW LEFT HISTORY: Wrist pain COMPARISON: None FINDINGS: Radiographs of the left wrist demonstrate no acute fracture or dislocation.The joint spaces are maintained. No soft tissue abnormality is seen. [facility], Radiant Results Inft User - 04/24/2019 8:19 PM CDTEXAM: XR WRIST 3+ VW LEFTHISTORY: Wrist pain COMPARISON: NoneFINDINGS:Radiographs of the left wrist demonstrate noacute fracture or dislocation.The joint spaces are maintained. No soft tissue abnormality is seen. IMPRESSIONNo acute bony abnormality.Santy Myers MD., have reviewed this study and agree with theabove report.[facility]
[2022-03-10] MEDS ORDERED: MORPHINE 2 MG/ML SYR ONE (22:19)
[2022-03-10] MEDS ORDERED: NA CHLORIDE 0.9% 1,000 ML ONE (22:19)
[2022-03-10] MEDS ORDERED: ONDANSETRON 4 MG/2 ML VIAL ONE (22:19)
[2022-03-10 22:36] LABS: Urine Blood 3+ (Negative); Urine Glucose Negative (Negative); Urine Protein Negative (Negative); Urine Specific Gravity >=1.030 (1.005-1.030)
[2022-03-10 23:29] LABS: Absolute Lymphocytes (CBC) 3.5 K/uL (0.7-4.9); Hematocrit 36.3 % (36.0-45.0); Lymphocytes % 40.8 % (15.3-44.8); MPV 7.8 fL (7.6-11.3)
[2022-03-10 23:42] LABS: Albumin 3.4 g/dL (3.4-5.0); Bilirubin Total 0.4 mg/dL (0.2-1.0); Potassium 3.3 mmol/L (3.5-5.1)
[2022-03-11 00:54] LABS: Urine Bacteria <20 /HPF (<20); Urine Mucus 1+ /HPF (NONE SEEN)
[2022-03-11] MEDS ORDERED: POTASSIUM 25 MEQ EFFERV TAB ONE (01:30)
--- NOTE | 2022-03-11 01:44 | ER ---
Nurse's Notes [facility] Name: Eros Jameson Age: 31 yrs Sex: Female : 1990 Arrival Date: 03/10/2022 Time: 21:28 Bed 26 Private MD: Diagnosis: Unspecified symptoms and signs involving the musculoskeletal system-RIGHT FLANK PAIN;Obesity, unspecified;Hypokalemia;Dysmenorrhea, unspecified;Essential (primary) hypertension Presentation: 03/10 21:46 Chief complaint: Patient states: she has been having constant right flank pain since bb this morning denies vomiting, diarrhea, fever or dysuria. Coronavirus screen: At this time, the client does not indicate any symptoms associated with coronavirus-19. Ebola Screen: No symptoms or risks identified at this time. Initial Sepsis Screen: Does the patient meet any 2 criteria? No. Patient's initial sepsis screen is negative. Does the patient have a suspected source of infection? No. Patient's initial sepsis screen is negative. Risk Assessment: Do you want to hurt yourself or someone else? Patient reports no desire to harm self or others. Onset of symptoms was March 10, 2022. 21:46 Method Of Arrival: Ambulatory bb 21:46 Acuity: DANIELLE 3 bb WOMEN NURSE: 21:47 LMP 03/10/2022 bb Historical: - Allergies: 21:47 No Known Allergies; bb - Home Meds: 21:47 amlodipine oral [Active]; bb - PMHx: 21:47 Hypertensive disorder; Diabetes mellitus; bb - PSHx: 21:47 None; bb - Immunization history:: Client reports receiving the 2nd dose of the Covid vaccine, Moderna. - Social history:: Smoking status: Patient reports the use of cigarette tobacco products. Screenin:50 Abuse screen: Denies threats or abuse. Nutritional screening: No deficits noted. 1 Tuberculosis screening: No symptoms or risk factors identified. Fall Risk None identified. Assessment: 21:50 Reassessment: No changes from previously documented assessment. General: Appears in no [facility] apparent distress. Behavior is calm, cooperative, appropriate for age. Pain: Complains of pain in back Pain does not radiate. Vital Signs: 21:46 BP 164 / 92; Pulse 72; Resp 18 S; Temp 97.5(O); Pulse Ox 100% on R/A; Weight 165.56 kg bb (R); Height 5 ft. 6 in. (167.64 cm) (R); Pain 10/10; 22:37 BP 153 / 89; Pulse 80; Resp 18; Pulse Ox 100% on R/A; bh1 23:05 BP 170 / 97; Pulse 88; Resp 20; Temp 98.3; Pulse Ox 100% on R/A; bh1 23:38 BP 151 / 85; Pulse 88; Resp 18; Pulse Ox 100% on R/A; bh1 03/11 01:26 BP 160 / 81; Pulse 66; Resp 18 S; Pulse Ox 100% on R/A; as6 01:56 BP 141 / 93; Pulse 64; Resp 16 S; Pulse Ox 100% on R/A; as6 03/10 21:46 Body Mass Index 58.91 (165.56 kg, 167.64 cm) ED Course: 03/10 21:28 Patient arrived in ED. as 21:47 Triage completed. 21:47 Arm band placed on Patient placed in an exam room, on a stretcher. 21:50 Rama Johnson, RN is Primary Nurse. [facility] 21:50 No apparent distress. Awaiting ED provider evaluation. [facility] 21:50 Patient has correct armband on for positive identification. Bed in low position. Call [facility] light in reach. Pulse ox on. NIBP on. 21:50 No provider procedures requiring assistance completed. [facility] 22:01 Keegan Xie MD is Attending Physician. [facility] 22:[address] Scan. [facility] 22:37 Inserted saline lock: 20 gauge in right antecubital area, using aseptic technique. [facility] Blood collected. 23:[address] Scan. [facility] 03/11 00:01 Report given to EMIL BERMAN. [facility] 01:02 Abdomen In Process Unspecified. EDMS 01:56 IV discontinued, intact, bleeding controlled, No redness/swelling at site. Pressure as6 dressing applied. Administered Medications: 03/10 22:35 Drug: morphine 2 mg Route: IVP; Infused Over: 4 mins; Site: right antecubital; [facility] 22:36 Follow up: Response: No adverse reaction [facility] 03/11 01:57 Follow up: Response: No adverse reaction 6 03/10 22:36 Drug: NS 0.9% 1000 ml Route: IV; Rate: 1 bolus; Site: right antecubital; [facility] 03/11 01:57 Follow up: Response: No adverse reaction; IV Status: Completed infusion; IV Intake: as6 1000ml 03/10 22:36 Drug: Zofran (Ondansetron) 4 mg Route: IVP; Site: right antecubital; [facility] 22:36 Follow up: Response: No adverse reaction [facility] 03/11 01:57 Follow up: Response: No adverse reaction as6 01:26 Drug: Potassium Effervescent Tablet 25 mEq Route: PO; as6 01:56 Follow up: Response: No adverse reaction as6 Medication: 03/10 21:50 VIS not applicable for this client. [facility] Intake: 03/11 01:57 IV: 1000ml; Total: 1000ml. as6 Outcome: 01:43 Discharge ordered by MD. velez 01:56 Discharged to home ambulatory. as6 01:56 Condition: stable 01:56 Discharge instructions given to patient, Instructed on discharge instructions, follow up and referral plans. medication usage, Demonstrated understanding of instructions, follow-up care, medications, Prescriptions given X 2. 01:57 Patient left the ED. as6 Signatures: Dispatcher [employer] EDMS Keegan Xie MD MD cha Martinez, Amelia as Ballard, Brenda, Malik Graves RN, RN RN as6 Rama Johnson RN RN 1
--- NOTE | 2022-03-11 01:44 | EDPHYS ---
Physician Documentation [facility] Name: Eros Jameson Age: 31 yrs Sex: Female : 1990 Arrival Date: 03/10/2022 Time: 21:28 Bed 26 Private MD: ED Physician Keegan Xie HPI: 03/10 23:06 This 31 yrs old Black Female presents to ER via Ambulatory with complaints of Flank rosie Pain. 23:06 The patient complains of pain in the right mid back and right low back. The pain does rosie not radiate. Onset: The symptoms/episode began/occurred this morning. Modifying factors: The symptoms are alleviated by nothing. the symptoms are aggravated by nothing. Associated signs and symptoms: The patient has no apparent associated signs or symptoms. Severity of pain: At its worst the pain was mild moderate in the emergency department the pain is unchanged. The patient has not experienced similar symptoms in the past. 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 - Social history:: Smoking status: Patient reports the use of cigarette tobacco products. ROS: 23:07 Constitutional: Negative for fever, chills, and weight loss, Eyes: Negative for injury, rosie pain, redness, and discharge, ENT: Negative for injury, pain, and discharge, Neck: Negative for injury, pain, and swelling, Cardiovascular: Negative for chest pain, palpitations, and edema, Respiratory: Negative for shortness of breath, cough, wheezing, and pleuritic chest pain, Abdomen/GI: Negative for abdominal pain, nausea, vomiting, diarrhea, and constipation, : Negative for injury, bleeding, discharge, and swelling, MS/Extremity: Negative for injury and deformity, Skin: Negative for injury, rash, and discoloration, Neuro: Negative for headache, weakness, numbness, tingling, and seizure, Psych: Negative for depression, anxiety, suicide ideation, homicidal ideation, and hallucinations, Allergy/Immunology: Negative for hives, rash, and allergies, Endocrine: Negative for neck swelling, polydipsia, polyuria, polyphagia, and marked weight changes, Hematologic/Lymphatic: Negative for swollen nodes, abnormal bleeding, and unusual bruising. 23:07 Back: Positive for pain at rest, pain with movement, of the right mid back and right low back. Exam: 23:07 Constitutional: This is a well developed, well nourished patient who is awake, alert, rosie and in no acute distress. Head/Face: Normocephalic, atraumatic. Eyes: Pupils equal round and reactive to light, extra-ocular motions intact. Lids and lashes normal. Conjunctiva and sclera are non-icteric and not injected. Cornea within normal limits. Periorbital areas with no swelling, redness, or edema. ENT: Nares patent. No nasal discharge, no septal abnormalities noted. Tympanic membranes are normal and external auditory canals are clear. Oropharynx with no redness, swelling, or masses, exudates, or evidence of obstruction, uvula midline. Mucous membranes moist. Neck: Trachea midline, no thyromegaly or masses palpated, and no cervical lymphadenopathy. Supple, full range of motion without nuchal rigidity, or vertebral point tenderness. No Meningismus. Chest/axilla: Normal chest wall appearance and motion. Nontender with no deformity. No lesions are appreciated. Cardiovascular: Regular rate and rhythm with a normal S1 and S2. No gallops, murmurs, or rubs. Normal PMI, no JVD. No pulse deficits. Respiratory: Lungs have equal breath sounds bilaterally, clear to auscultation and percussion. No rales, rhonchi or wheezes noted. No increased work of breathing, no retractions or nasal flaring. Abdomen/GI: Soft, non-tender, with normal bowel sounds. No distension or tympany. No guarding or rebound. No evidence of tenderness throughout. Pelvic Exam: Normal external genitalia. Speculum exam with closed cervical os, no discharge or bleeding noted. Bimanual exam with normal adnexa, no adnexal or cervical motion tenderness. Normal uterus. Female : Normal external genitalia. Skin: Warm, dry with normal turgor. Normal color with no rashes, no lesions, and no evidence of cellulitis. MS/ Extremity: Pulses equal, no cyanosis. Neurovascular intact. Full, normal range of motion. Neuro: Awake and alert, GCS 15, oriented to person, place, time, and situation. Cranial nerves II-XII grossly intact. Motor strength 5/5 in all extremities. Sensory grossly intact. Cerebellar exam normal. Normal gait. Psych: Awake, alert, with orientation to person, place and time. Behavior, mood, and affect are within normal limits. 23:07 Back: pain, that is mild, ROM is painful, with all movement, normal spinal alignment noted, CVA tenderness, is noted on the right, muscle spasm, is not present. Vital Signs: 21:46 BP 164 / 92; Pulse 72; Resp 18 S; Temp 97.5(O); Pulse Ox 100% on R/A; Weight 165.56 kg bb (R); Height 5 ft. 6 in. (167.64 cm) (R); Pain 10/10; 22:37 BP 153 / 89; Pulse 80; Resp 18; Pulse Ox 100% on R/A; bh1 23:05 BP 170 / 97; Pulse 88; Resp 20; Temp 98.3; Pulse Ox 100% on R/A; bh1 23:38 BP 151 / 85; Pulse 88; Resp 18; Pulse Ox 100% on R/A; bh1 03/11 01:26 BP 160 / 81; Pulse 66; Resp 18 S; Pulse Ox 100% on R/A; as6 01:56 BP 141 / 93; Pulse 64; Resp 16 S; Pulse Ox 100% on R/A; as6 03/10 21:46 Body Mass Index 58.91 (165.56 kg, 167.64 cm) bb MDM: 03/10 22:01 Patient medically screened. rosie 23:12 Differential diagnosis: nephrolithiasis, pyelonephritis, UTI, chronic back pain, rosie Fatigue Hydronephrosis Obesity. Data reviewed: vital signs, nurses notes, lab test result(s), radiologic studies, CT scan. 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 Test interpretation: by ED physician or midlevel provider:. Counseling: I had a detailed discussion with the patient and/or guardian regarding: the historical points, exam findings, and any diagnostic results supporting the discharge/admit diagnosis, lab results, radiology results. 03/10 22:04 Order name: CBC with Diff; Complete Time: 00:28 rosie 03/10 22:04 Order name: CMP; Complete Time: 00:28 [facility] 03/10 22:04 Order name: Lipase; Complete Time: 00:28 [facility] 03/10 22:04 Order name: Urine Microscopic Only; Complete Time: 01:43 [facility] 03/10 22:37 Order name: Urine Dipstick-Ancillary; Complete Time: 00:28 [facility] 03/10 22:04 Order name: IV Saline Lock; Complete Time: 22:36 [facility] 03/10 22:04 Order name: Labs collected and sent; Complete Time: 22:36 [facility] 03/11 00:38 Order name: Abdomen EDMS 03/10 22:04 Order name: Urine Dipstick-Ancillary (obtain specimen); Complete Time: 22:35 [facility] 03/10 22:04 Order name: Urine Test (obtain specimen); Complete Time: 22:35 [facility] Administered Medications: 22:35 Drug: morphine 2 mg Route: IVP; Infused Over: 4 mins; Site: right antecubital; [facility] 22:36 Follow up: Response: No adverse reaction [facility] 03/11 01:57 Follow up: Response: No adverse reaction 03/10 22:36 Drug: NS 0.9% 1000 ml Route: IV; Rate: 1 bolus; Site: right antecubital; [facility] 03/11 01:57 Follow up: Response: No adverse reaction; IV Status: Completed infusion; IV Intake: as6 1000ml 03/10 22:36 Drug: Zofran (Ondansetron) 4 mg Route: IVP; Site: right antecubital; [facility] 22:36 Follow up: Response: No adverse reaction [facility] 03/11 01:57 Follow up: Response: No adverse reaction as 01:26 Drug: Potassium Effervescent Tablet 25 mEq Route: PO; as6 01:56 Follow up: Response: No adverse reaction as6 Disposition Summary: 03/11/22 01:43 Discharge Ordered Location: Home rosie Problem: new rosie Symptoms: have improved rosie Condition: Stable rosie Diagnosis - Unspecified symptoms and signs involving the musculoskeletal system - RIGHT FLANK rosie PAIN - Obesity, unspecified rosie - Hypokalemia rosie - Dysmenorrhea, unspecified rosie - Essential (primary) hypertension rosie Followup: rosie - With: Private Physician - When: 2 - 3 days - Reason: Recheck today's complaints, Continuance of care, Re-evaluation by your physician Discharge Instructions: - Discharge Summary Sheet rosie - Type 2 Diabetes Mellitus, Diagnosis, Adult rosie - Obesity, Adult rosie - Diabetes Mellitus and Exercise rosie - Diabetes Mellitus and Nutrition, Adult rosie - Potassium Content of Foods rosie - Hypokalemia [facility] Forms: - Medication Reconciliation Form rosie - Thank You Letter rosie - Antibiotic Education rosie - Prescription Opioid Use rosie Prescriptions: - Ibuprofen 600 mg Oral Tablet - take 1 tablet by ORAL route every 6 hours As needed take with food; 20 tablet; rosie Refills: 0, Product Selection Permitted - Tylenol-Codeine #3 300 mg-30 mg Oral - take 2 tablet by ORAL route every 6 hours; 20 tablet; Refills: 0, Product rosie Selection Permitted Signatures: Dispatcher [employer] EDKeegan Li MD MD cha Ballard, Brenda, RN RN Malik Vallejo RN RN as6 Rama Johnson RN RN bh1 Corrections: (The following items were deleted from the chart) 00:38 03/10 22:04 Abdomen Pelvis W [id number] ordered. [facility] 03/11 01:44 01:43 Type 2 diabetes mellitus with hyperglycemia [facility]
[2022-03-11 02:24] VITALS: O2SAT 100
[2022-03-11 02:27] VITALS: TEMP 98.3
[2022-03-11 02:32] VITALS: BP 141/93
--- NOTE | 2022-03-11 14:34 | RAD REPORT ---
EXAM DESCRIPTION: CT - Abdomen Pelvis Wo Contrast - 03/11/2022 1:00 am CLINICAL HISTORY: 31 years, Female, Flank pain, kidney stone suspected COMPARISON: None TECHNIQUE: Multiple transaxial tomograms of the abdomen and pelvis were performed from the lung base s to the symphysis pubis 5 mm slice thickness at 5 mm interval reconstruction, without administration of IV and oral contrast. Multiplanar reformats in the sagittal and coronal plane were generated and reviewed. This exam was performed according to our departmental dose-optimization protocol, which includes auto mated exposure control, adjustment of the mA and/or kV according to patient size and/or use of iterat pradeep reconstruction technique. FINDINGS: The lack of IV and oral contrast limits evaluation of solid organs, subtle lesions cannot be excluded. Some of the images are compromised due to streak artifact. The lung bases demonstrate to be clear. Grossly the unopacified liver, gallbladder, pancreas, spleen and adrenal glands demonstrate to be wit hin normal limits, no significant focal lesions were identified. The kidneys demonstrate grossly unremarkable. There is no evidence for nephrolithiasis and/or hydro nephrosis. No focal masses were demonstrated. Grossly the unopacified stomach, small bowel and large bowel demonstrate to be within normal limits. There is no evidence for bowel dilatation and/or free air. The appendix is normal. The urinary bladder demonstrate to be within normal limits. The uterus demonstrate to be within angel luis l limits. No adnexal masses are identified. The aorta demonstrate to be within normal limits. There is no retroperitoneal lymphadenopathy. There is no evidence for ascites. The rest of the soft tiss ue demonstrate to be grossly unremarkable. IMPRESSION: No evidence for nephrolithiasis and/or hydronephrosis. Unremarkable CT scan of the abdomen and pelvis without contrast. Electronically signed by: Ed Alejandro MD 03/11/2022 1:14 AM CDT Due to temporary technical issues with the PACS/Fluency reporting system, reports are being signed by the in house radiologists without. review as a courtesy to insure prompt reporting. The interpreting radiologist is fully responsible for the content of the report
== END 2022-03-11 01:57 | disposition home or self-care (01) ==
LOC: ER 21:27
DX: R10.9 Unspecified abdominal pain (principal); N94.6 Dysmenorrhea, unspecified; E87.6 Hypokalemia; E66.9 Obesity, unspecified; Z68.43 Body mass index [BMI] 50.0-59.9, adult; I10 Essential (primary) hypertension; E11.9 Type 2 diabetes mellitus without complications; Z72.0 Tobacco use
CPT/HCPCS: 36415; 74176; 80053; 81003; 81015; 83690; 85025; 96361; 96374; 96375; 99284; J2270; J2405; J7030; Q9967

== ENCOUNTER 2024-05-19 16:05 | Emergency (ER) | payer OTHER ==
--- OUTSIDE RECORDS SUMMARY | 2024-05-19 16:13 | XMS REPORT | Continuity of Care Document ---
Author Name Unknown Address [address] [facility] [address] [place] [address] [facility]connect Address [address] [facility] [address] [place] [address] Care Team Providers Care Household Appliances Service Technician Name Role Phone JUAN JONES Primary Care Physician Unavail able GEOFF CORNELIUS Attending Clinician Unavail able Ashli Geoff AGUDELO Attending Clinician + Doctor Unassigned, Fate Attending Clinician U navailable HEATHER MARLOW Attending Clinician Unavailable HEATHER MARLOW Attending Clinician Unavailable ASHANTI GREWAL Attending Clinician Unavailable LESLY VIGIL Attending Clinician LESLY Hanna Attending Clinician ANNABELLA Oakley Attending Clinician Unav ailable Omari Suarez Attending Clinician UnavailAnnabella Shannon MD Attending Clinician + Josef Mcdonald Attending Clinician Unavailable OMAR LEE Attending Clinician Unavailabl e LEE, OMAR L Attending Clinician Unavaillily Lee MD, Omar Quintero Attending Clinician [phone] BECCA CALLOWAY Attending Clinician Unavailable 2, [facility] Attending Clinician Unavailab Lisa CARSON, Becca Attending Clinician [phone] JACKIE ALFARO Attending Clinician Unavailtamia [facility], Patient Does Not Have A Attending Clinician NAOMY COOPER Attending Clinician Albania Cooper MD, Naomy Hernandez Attending Clinician +[phone] ZANE ANDERSON Attending Clinician Unavailable Zane Katz Attending Clinician +[phone] Reji [facility], Jackie Cardenas Attending Clinician [phone] LUCIANO SILVA Attending Clinician Unavailable Luciano Nagy Attending Clinician + [phone] ANAT JONES Attending Clinician Unavailab Anat Mark DO Attending Clinician +[phone] Lavon Nieves MD Attending Clinician + [phone] LAVON NIEVES Attending Clinician Unavailable Lenin Shea DO Attending Clinician [phone] Theresa Alcantara DO Attending Clinician +[phone] Christopher Flores DO Attending Clinician + Airam Guzmán Attending Clinician [phone] Juan Jack Attending Clinician [phone] JUAN JONES Attending Clinician UnavailMarta Mark Attending Clinician +[phone] LESLY VIGIL Admitting Clinician HEATHER Carter Admitting Clinician Unavailable NAOMY COOPER Admitting Clinician ZANE Baez Admitting Clinician Unavailable LAVON NIEVES Admitting Clinician Unavailable Payers Payer Name Policy Type Policy Number Effective Date Expirati on Date Source [facility] [id number] 2023 00:00:00 [facility] [id number] 2023 00:00:00 2023 00:00:00 MEDICAID PENDING PENDING 1998 00:00:00 1998 00:00:00 Problems Condition Name Condition Details Condition Category Status Onset Date Resolution Date Last Treatment Date Treating Clinician Comments Source Other general counseling and advice for contracept pradeep management Other general counseling and advice for contracept pradeep management Disease Active 5-06 00:00: 00 [facility] depression depression Disease Active -12 00:00: 00 [facility] Essential hypertensi on Essential hypertensi on Disease Active 2022-09 0-11 00:00: 00 [facility] Chronic hypertensi on affecting Chronic hypertensi on affecting Disease Active 2022-09 0-11 00:00: 00 [facility] History of depression History of depression Disease Active 2022-09 0-11 00:00: 00 [facility] Obesity affecting Obesity affecting Disease Active 2022-09 0-11 00:00: 00 [facility] Declines flu vaccine Declines flu vaccine Disease Active 2022-09 0-11 00:00: 00 [facility] Morbid obesity Morbid obesity Disease Active 2014-09 1-19 00:00: 00 [facility] care and examinatio n of lactating mother care and examinatio n of lactating mother Disease Resolve d 4-12 00:00: 00 2024-01-23 00:00:00 2024-01-23 08:45:35 [facility] Tubal ligation status Tubal ligation status Disease Resolve d 3-23 00:00: 00 2024-01-23 00:00:00 2024-01-23 08:45:32 [facility] (spontaneo us vaginal delivery) (spontaneo us vaginal delivery) Disease Resolve d 2023-0 3-23 00:00: 00 2023-12-30 00:00:00 2023-12-30 08:25:34 [facility] Single live Single live Disease Resolve d 3-23 00:00: 00 2023-12-30 00:00:00 2023-12-30 08:25:33 [facility] 39 weeks gestation of 39 weeks gestation of Disease Resolve d 2023-0 3-22 00:00: 00 2023-12-30 00:00:00 2023-12-30 08:25:21 [facility] Genetic screening Genetic screening Disease Resolve d 2022-09 2-15 00:00: 00 2023-12-30 00:00:00 2023-12-30 08:25:29 Overview: Formattin g of this note might be different from the original. Nipt- low risk female [facility] Urinary tract infection in mother during second trimester of Urinary tract infection in mother during second trimester of Disease Resolve d 2022-09 2-07 00:00: 00 2023-12-30 00:00:00 2023-12-30 08:25:40 Overview: Formattin g of this note might be different from the original. Huma neg [facility] Unspecifie d chronic bronchitis Unspecifie d chronic bronchitis Disease Resolve d 2022-09 2-07 00:00: 00 2023-12-30 00:00:00 2023-12-30 08:25:37 [facility] Abnormal maternal glucose tolerance, antepartum Abnormal maternal glucose tolerance, antepartum Disease Resolve d 2022-09 0-12 00:00: 00 2023-12-30 00:00:00 2023-12-30 08:25:23 Overview: Formattin g of this note might be different from the original. Passed 3hr [facility] AMA (advanced maternal age) multigravi da 35+ AMA (advanced maternal age) multigravi da 35+ Disease Resolve d 2022-09 0-11 00:00: 00 2023-12-30 00:00:00 2023-12-30 08:25:25 [facility] Obesity in Obesity in Disease Resolve d 2022-09 0-11 00:00: 00 2023-12-30 00:00:00 2023-12-30 08:25:32 [facility] Tobacco smoking affecting Tobacco smoking affecting Disease Resolve d 2022-09 0 00:00: 00 2023-06-29 00:00:00 2023-06-29 12:12:25 [facility] BMI 50.0-59.9, adult BMI 50.0-59.9, adult Disease Resolve d 2016-09 00:00: 00 2023-06-29 00:00:00 2023-06-29 08:34:14 [facility] Elevated blood pressure reading without diagnosis of hypertensi on Elevated blood pressure reading without diagnosis of hypertensi on Disease Resolve d 2016-09 00:00: 00 2023-06-29 00:00:00 2023-06-29 08:34:15 [facility] Depression , unspecifie d depression type Depression , unspecifie d depression type Disease Resolve d 2015-09 00:00: 00 2023-06-29 00:00:00 2023-06-29 08:34:38 [facility] Screening examinatio n for STD (sexually transmitte d disease) Screening examinatio n for STD (sexually transmitte d disease) Disease Resolve d 2014-09 00:00: 00 2023-06-29 00:00:00 2023-06-29 08:34:08 [facility] UTI (urinary tract infection) UTI (urinary tract infection) Disease Resolve d 2015-09 00:00: 00 2020-05-01 00:00:00 2020-05-01 08:07:15 [facility] Encounter for other general counseling or advice on contracept ion Encounter for other general counseling or advice on contracept ion Disease Resolve d 2015-09 00:00: 00 2020-05-01 00:00:00 2020-05-01 08:07:20 [facility] Recurrent acute serous otitis media of left ear Recurrent acute serous otitis media of left ear Disease Resolve d 2014-09 00:00: 00 2017-07-26 00:00:00 2017-07-26 13:45:50 [facility] Allergies, Adverse Reactions, Alerts Allergy Name Allergy Type Status Severity Reaction(s) Onset Date Inactive Date Treating Clinician Comments Source NO KNOWN ALLERGIE S Drug Class Active [facility] Social History Social Habit Start Date Stop Date Quantity Comments Source ASSERTION 2023-03-25 00:00:00 [facility] History SDOH Alcohol Frequency [facility] History SDOH Alcohol Std Drinks [facility] History SDOH Alcohol Binge [facility] Sexual orientation U [facility] Exposure to SARS-CoV-2 (event) Not sure [facility] Alcoholic beverage intake 2024-02-28 00:00:00 2024-02-28 00:00:00 .29 /d [facility] Tobacco Comment 2024-01-23 00:00:00 2024-01-23 00:00:00 Daily vaping [facility] History of Social function 2024-01-23 00:00:00 2024-01-23 00:00:00 [facility] Tobacco use and exposure 2024-01-23 00:00:00 2024-01-23 00:00:00 User of smokeless tobacco [facility] Alcohol intake 2023-12-30 00:00:00 2023-12-30 00:00:00 Ex-drinker (finding) [facility] History of tobacco use 2005-07-26 00:00:00 2022-09-19 00:00:00 Cigarette Smoker [facility] Alcohol Comment 2015-08-07 00:00:00 2015-08-07 00:00:00 socially [facility] Sex assigned at 1990 00:00:00 1990 00:00:00 [facility] Smoking Status Start Date Stop Date Source Ex-smoker 2024-01-23 00:00:00 2024-01-23 00:00:00 [facility] Smokes tobacco daily 2020-05-01 00:00:00 [facility] Medications Ordered Medication Name Filled Medication Name Start Date Stop Date Current Medication? Ordering Clinician Indication Dosage Frequency Signature (SIG) Comments Components Source SERTraline (ZOLOFT) 50 mg tablet 02-28 00:00: 00 Yes [id number] 50mg Take 1 tablet by mouth in the morning. [facility] levonorgest reL (MIRENA) IUD 1 Device 02-27 16:30: 00 02-27 15:39 :00 No [id number] 1{devic e} [facility] aspirin 81 mg Cap 01-22 08:46: 47 Yes Take by mouth. [facility] SERTraline (ZOLOFT) 50 mg tablet 12-29 00:00: 00 02-27 00:00 :00 No [id number] 50mg Take 1 tablet by mouth in the morning. [facility] docusate 100 mg capsule 12-10 00:00: 00 Yes [id number] 200mg Take 2 capsules by mouth once daily as needed for Constipati on. [facility] ibuprofen 600 mg tablet 12-10 00:00: 00 Yes [id number] 600mg Take 1 tablet by mouth every 6 (six) hours as needed (Pain). Take with food or milk. [facility] ferrous sulfate 325 mg (65 mg iron) tablet 12-10 00:00: 00 Yes [id number] 325mg Take 1 tablet by mouth in the morning. [facility] vitamin w/FA tablet 12-10 00:00: 00 Yes [id number] 1{tbl} Take 1 tablet by mouth in the morning. [facility] albuterol 90 mcg/actuati on inhaler 2022-09 00:00: 00 Yes [id number] 2{puff} Inhale 2 Puffs every 6 (six) hours as needed for Wheezing, Shortness of Breath or Bronchospa sm. [facility] cefdinir (OMNICEF) capsule 300 mg 2022-09 06:00: 00 08-10 06:18 :00 No 300mg 300 mg, Oral, ONCE, 1 dose, On Tue08/10/23 at 0000, JOSE
Re ason for Anti-Infec tive: Documented Infection< br>Documen roxi Infection Site: Urine
D uration of Therapy: 7 days [facility] ondansetron 4 mg tablet 2022-09 00:00: 00 Yes [id number] 1 or 2 tablets every 8 hours as needed for nausea [facility] cefdinir 300 mg capsule 2022-09 00:00: 00 08-17 05:59 :00 No [id number] 300mg Take 1 capsule by mouth every 12 (twelve) hours for 7 days. [facility] Nitrofurant oin&Nit. Macrocryst (MACROBID) 100 mg capsule 2022-09 1-06 00:00: 00 08-05 05:59 :00 No [id number] 100mg Take 1 capsule by mouth in the morning and 1 capsule in the evening. Do all this for 10 days. [facility] Nitrofurant oin&Nit. Macrocryst (MACROBID) 100 mg capsule 2022-09 0-16 00:00: 00 07-15 04:59 :00 No [id number] 100mg Take 1 capsule by mouth in the morning and 1 capsule in the evening. Do all this for 10 days. [facility] HYDROcodone -acetaminop hen (NORCO 5) 5-325 mg tablet 1 tablet 06-12 05:15: 06-12 05:00 :00 No 1{tbl} 1 tablet, Oral, ONCE, 1 dose, On 06/12/23 at 0015, JOSE [facility] amoxicillin -clavulanat e (AUGMENTIN) 875-125 mg per tablet 1 tablet 06-12 05:15: 06-12 05:00 :00 No 1{tbl} 1 tablet, Oral, ONCE, 1 dose, On 06/12/23 at 0015, JOSE
Re ason for Anti-Infec tive: Documented Infection< br>Documen roxi Infection Site: HEENT
D uration of Therapy: Other (see Comments) [facility] HYDROcodone -acetaminop hen (NORCO) 10-325 mg tablet 06-12 00:00: 00 06-20 04:59 :00 No [id number] .5{tbl} Take 0.5-1 tablets by mouth every 6 (six) hours as needed for Pain (scale 7-10) for up to 7 days. Indication s: acute pain [facility] amoxicillin -clavulanat e 875-125 mg per tablet -24 00:00: 00 06-20 04:59 :00 No [id number] 1{tbl} Take 1 tablet by mouth in the morning and 1 tablet in the evening. Do all this for 7 days. [facility] dexamethaso ne (DECADRON PHOSPHATE) injection 10 mg 2020-09 14:15: 00 09-02 13:27 :00 No 10mg 10 mg, Oral, ONCE, 1 dose, On Tue09/02/21 at 0815, STAT [facility] acetaminoph en (TYLENOL) tablet 1,000 mg 2020-09 13:00: 00 09-02 13:00 :00 No 1000mg 1,000 mg, Oral, ONCE, 1 dose, On Tue09/02/21 at 0700, JOSE [facility] albuterol 90 mcg/actuati on inhaler 2020-09 00:00: 00 06-29 00:00 :00 No [id number] 2{puff} Inhale 2 Puffs every 4 (four) hours as needed for Wheezing or Shortness of Breath. [facility] amLODIPine (NORVASC) 5 mg tablet 2020-09 00:00: 00 10-02 05:59 :00 No [id number] 5mg Take 1 tablet by mouth daily for 30 days. [facility] ketorolac (TORADOL) injection 60 mg 02-09 13:00: 00 02-09 11:59 :00 No 60mg 60 mg, Intramuscu lar, ONCE, 1 dose, Tue02/09/21 at 0800, JOSE
Fa culty member approving Restricted medication : LAVON NIEVES [facility] acetaminoph en (TYLENOL) tablet 650 mg 02-09 12:30: 00 02-09 11:30 :00 No 650mg 650 mg, Oral, ONCE, 1 dose, [facility] 02/09/21 at 0730, JOSE [facility] cephALEXin (KEFLEX) 500 mg capsule 02-09 00:00: 00 06-29 00:00 :00 No [id number] 500mg Take 1 capsule by mouth 3 (three) times daily. [facility] amLODIPine 5 mg tablet 02-09 00:00: 09-01 00:00 :00 No [id number] 5mg Take 1 tablet by mouth at bedtime. [facility] traMADoL (ULTRAM) 50 mg tablet 02-09 00:00: 09-01 00:00 :00 No [id number] 50mg Take 1 tablet by mouth every 6 (six) hours as needed for Pain (scale 7-10). Indication s: acute pain [facility] ketorolac (TORADOL) injection 15 mg 10-09 14:00: 00 10-09 13:38 :00 No 15mg 15 mg, Intramuscu lar, ONCE, 1 dose, Margaret 10/09/20 at 0800, JOSE
Fa ecu healthy member approving Restricted medication : THERESA ALCANTARA [facility] proMETHazin e (PHENERGAN) 25 mg in NaCl 0.9% (NS) 50 mL piggyback 10-09 14:00: 10-09 13:39 :00 No 25mg 25 mg, IV Piggyback, ONCE, 1 dose, Margaret 10/09/20 at 0800, 50 mL [facility] acetaminoph en (TYLENOL) tablet 1,000 mg 2019-09 07:45: 00 08-14 06:39 :00 No 1000mg 1,000 mg, Oral, ONCE, 1 dose, Margaret 08/14/20 at 0145, JOSE [facility] dexamethaso ne (DECADRON PHOSPHATE) injection 10 mg 2019-09 07:00: 00 08-14 06:07 :00 No 10mg 10 mg, Intramuscu lar, ONCE, 1 dose, [facility] 08/14/20 at 0100, STAT [facility] ketorolac (TORADOL) injection 60 mg 2019-09 07:00: 00 08-14 06:08 :00 No 60mg 60 mg, Intramuscu lar, ONCE, 1 dose, [facility] 08/14/20 at 0100, JOSE
Fa culty member approving Restricted medication : AIRAM CARRILLO [facility] ibuprofen 800 mg tablet 2019-09 00:00: 00 06-29 00:00 :00 No [id number] 800mg Take 1 tablet by mouth every 6 (six) hours as needed for Pain (scale 4-6). [facility] cyclobenzap rine 10 mg tablet 2019-09 00:00: 00 02-09 00:00 :00 No [id number] 10mg Take 1 tablet by mouth 3 (three) times daily as needed for Muscle Spasms. [facility] metroNIDAZO LE (FLAGYL) 500 mg tablet 05-05 00:00: 05-06 04:59 :00 No [id number] 2000mg Take 4 tablets by mouth once now for 1 dose. [facility] diclofenac 75 mg EC tablet 03-12 00:00: 00 06-29 00:00 :00 No TAKE 1 TABLET BY MOUTH TWICE DAILY NEEDED [facility] ketorolac (TORADOL) injection 60 mg 04-25 03:15: 00 04-25 03:15 :00 No 60mg 60 mg, Intramuscu lar, ONCE, 1 dose, Count Includes [facility] 04/24/19 at 2215, JOSE
Fa culty member approving Restricted medication : Marta BELLO [facility] ibuprofen 600 mg tablet 04-24 00:00: 00 06-29 00:00 :00 No [id number] 600mg Take 1 tablet by mouth every 6 (six) hours as needed for Pain (scale 4-6). [facility] methocarbam ol 750 mg tablet 02-11:00: 00 06-29 00:00 :00 No [id number] 750mg Take 1 tablet by mouth 4 (four) times daily. [facility] benzonatate 200 mg capsule 20 00:00: 06-29 00:00 :00 No [id number] 200mg Take 1 capsule by mouth 3 (three) times daily as needed for Cough. [facility] albuterol 90 mcg/actuati on inhaler 12-06 00:00: 09-01 00:00 :00 No [id number] 2{puff} Inhale 2 Puffs every 4 (four) hours as needed for Wheezing, Shortness of Breath, Bronchospa sm or Chest tightness. [facility] levoFLOXaci n (LEVAQUIN) 500 mg tablet 12-06 00:00: 00 05-01 00:00 :00 No [id number] 500mg Take 1 tablet by mouth every 24 (twenty-fo ur) hours. [facility] ibuprofen 800 mg tablet 12-06 00:00: 00 04-24 00:00 :00 No [id number] 800mg Take 1 tablet by mouth every 8 (eight) hours as needed for Pain (scale 4-6). [facility] traMADOL 50 mg tablet 10-30 00:00: 09-01 00:00 :00 No [id number] 50mg Take 1 tablet by mouth every 6 (six) hours as needed for Pain (scale 4-6). [facility] ibuprofen 800 mg tablet 10-30 00:00: 00 04-24 00:00 :00 No [id number] 800mg Take 1 tablet by mouth every 8 (eight) hours. [facility] albuterol 90 mcg/actuati on inhaler 11-01 00:00: 05-01 00:00 :00 No 2{puff} Inhale 2 Puffs every 4 (four) hours as needed for Wheezing or Shortness of Breath. [facility] benzonatate 100 mg capsule 11-01 00:00: 00 05-01 00:00 :00 No 100mg Take 1 capsule by mouth 3 (three) times daily as needed for Cough. [facility] traMADOL 50 mg tablet 11-01 00:00: 00 05-01 00:00 :00 No 50mg Take 1 tablet by mouth every 6 (six) hours as needed for Pain (scale 4-6). [facility] ibuprofen 600 mg tablet 2016-09 0 00:00: 00 04-24 00:00 :00 No 600mg Take 1 tablet by mouth every 6 (six) hours as needed for Pain (scale 4-6). [facility] Immunizations Ordered Immunization Name Filled Immunization Name Date Status Comments Source TDAP 2012-02-18 00:00:00 Completed [facility] TDAP 2012-02-18 00:00:00 Completed [facility] TDAP 2012-02-18 00:00:00 Completed [facility] TDAP 2012-02-18 00:00:00 Completed [facility] TDAP 2012-02-18 00:00:00 Completed [facility] TDAP 2012-02-18 00:00:00 Completed [facility] TDAP 2012-02-18 00:00:00 Completed [facility] TDAP 2012-02-18 00:00:00 Completed [facility] TDAP 2012-02-18 00:00:00 Completed [facility] TDAP 2012-02-18 00:00:00 Completed [facility] Tdap 2012-02-18 00:00:00 Completed [facility] TDAP 2012-02-18 00:00:00 Completed [facility] TDAP 2012-02-18 00:00:00 Completed [facility] TDAP Unknown Completed [facility] TDAP Unknown Completed [facility] TDAP Unknown Completed [facility] TDAP Unknown Completed [facility] TDAP Unknown Completed [facility] TDAP Unknown Completed [facility] TDAP Unknown Completed [facility] TDAP Unknown Completed [facility] TDAP Unknown Completed [facility] TDAP Unknown Completed [facility] TDAP Unknown Completed [facility] TDAP Unknown Completed [facility] TDAP Unknown Completed [facility] TDAP Unknown Completed [facility] TDAP Unknown Completed [facility] TDAP Unknown Completed [facility] TDAP Unknown Completed [facility] TDAP Unknown Completed [facility] TDAP Unknown Completed [facility] TDAP Unknown Completed [facility] TDAP Unknown Completed [facility] TDAP Unknown Completed [facility] TDAP Unknown Completed [facility] TDAP Unknown Completed [facility] TDAP Unknown Completed [facility] TDAP Unknown Completed [facility] TDAP Unknown Completed [facility] TDAP Unknown Completed [facility] TDAP Unknown Completed [facility] TDAP Unknown Completed [facility] TDAP Unknown Completed [facility] TDAP Unknown Completed [facility] TDAP Unknown Completed [facility] TDAP Unknown Completed [facility] TDAP Unknown Completed [facility] TDAP Unknown Completed [facility] TDAP Unknown Completed [facility] TDAP Unknown Completed [facility] TDAP Unknown Completed [facility] TDAP Unknown Completed [facility] TDAP Unknown Completed [facility] TDAP Unknown Completed [facility] TDAP Unknown Completed [facility] TDAP Unknown Completed [facility] TDAP Unknown Completed [facility] TDAP Unknown Completed [facility] TDAP Unknown Completed [facility] TDAP Unknown Completed [facility] TDAP Unknown Completed [facility] TDAP Unknown [facility]pleted [facility] TDAP Unknown Completed [facility] TDAP Unknown Completed [facility] TDAP Unknown Completed [facility] TDAP Unknown Completed [facility] TDAP Unknown Completed [facility] TDAP Unknown Completed [facility] TDAP Unknown [facility]pleted [facility] TDAP Unknown Completed [facility] TDAP Unknown Completed [facility] TDAP Unknown Completed [facility] TDAP Unknown Completed [facility] TDAP Unknown Completed [facility] TDAP Unknown Completed [facility] TDAP Unknown Completed [facility] TDAP Unknown Completed [facility] TDAP Unknown Completed [facility] TDAP Unknown Completed [facility] TDAP Unknown Completed [facility] TDAP Unknown Completed [facility] TDAP Unknown Completed [facility] TDAP Unknown Completed [facility] TDAP Unknown Completed [facility] TDAP Unknown Completed [facility] TDAP Unknown Completed [facility] TDAP Unknown Completed [facility] TDAP Unknown Completed [facility] TDAP Unknown Completed [facility] TDAP Unknown Completed [facility] TDAP Unknown Completed [facility] TDAP Unknown Completed [facility] TDAP Unknown Completed [facility] TDAP Unknown Completed [facility] TDAP Unknown Completed [facility] TDAP Unknown Completed [facility] TDAP Unknown Completed [facility] TDAP Unknown Completed [facility] TDAP Unknown Completed [facility] TDAP Unknown Completed [facility] TDAP Unknown Completed [facility] TDAP Unknown Completed [facility] TDAP Unknown Completed [facility] TDAP Unknown Completed [facility] TDAP Unknown Completed [facility] TDAP Unknown Completed [facility] TDAP Unknown Completed [facility] TDAP Unknown Completed [facility] Vital Signs Vital Name Observation Time Observation Value Comments S ource Systolic blood pressure 2024-02-28 14:47:00 144 mm[Hg] [facility] Diastolic blood pressure 2024-02-28 14:47:00 93 mm[Hg] [facility] Heart rate 2024-02-28 14:47:00 73 /min [facility] Body temperature 2024-02-28 14:45:00 36.17 Jeanne [facility] Respiratory rate 2024-02-28 14:45:00 18 /min [facility] Body height 2024-02-28 14:45:00 165.1 cm [facility] Body weight 2024-02-28 14:45:00 156.99 kg [facility] BMI 2024-02-28 14:45:00 57.59 kg/m2 [facility] Systolic blood pressure 2024-02-14 15:52:00 150 mm[Hg] [facility] Diastolic blood pressure 2024-02-14 15:52:00 90 mm[Hg] [facility] Heart rate 2024-02-14 15:29:00 82 /min [facility] Body temperature 2024-02-14 15:29:00 36.17 Jeanne [facility] Respiratory rate 2024-02-14 15:29:00 18 /min [facility] Body weight 2024-02-14 15:29:00 156.854 kg [facility] BMI 2024-02-14 15:29:00 57.54 kg/m2 [facility] Systolic blood pressure 2024-01-23 13:32:00 147 mm[Hg] [facility] Diastolic blood pressure 2024-01-23 13:32:00 92 mm[Hg] [facility] Heart rate 2024-01-23 13:32:00 74 /min [facility] Body temperature 2024-01-23 13:32:00 36.5 Jeanne [facility] Respiratory rate 2024-01-23 13:32:00 18 /min [facility] Body height 2024-01-23 13:32:00 165.1 cm [facility] Body weight 2024-01-23 13:32:00 156.536 kg [facility] BMI 2024-01-23 13:32:00 57.43 kg/m2 [facility] Systolic blood pressure 2023-12-30 12:55:00 148 mm[Hg] [facility] Diastolic blood pressure 2023-12-30 12:55:00 96 mm[Hg] [facility] Heart rate 2023-12-30 12:55:00 76 /min [facility] Body temperature 2023-12-30 12:55:00 36.22 Jeanne [facility] Respiratory rate 2023-12-30 12:55:00 19 /min [facility] Body height 2023-12-30 12:55:00 165.1 cm [facility] Body weight 2023-12-30 12:55:00 154.949 kg [facility] BMI 2023-12-30 12:55:00 56.85 kg/m2 [facility] Systolic blood pressure 2023-12-07 14:07:00 124 mm[Hg] [facility] Diastolic blood pressure 2023-12-07 14:07:00 73 mm[Hg] [facility] Heart rate 2023-12-07 14:07:00 83 /min [facility] Body temperature 2023-12-07 14:07:00 35.83 Jeanne [facility] Respiratory rate 2023-12-07 14:07:00 18 /min [facility] Body height 2023-12-07 14:07:00 167.6 cm [facility] Body weight 2023-12-07 14:07:00 157.761 kg [facility] BMI 2023-12-07 14:07:00 56.14 kg/m2 [facility] Systolic blood pressure 2023-11-30 13:11:00 118 mm[Hg] [facility] Diastolic blood pressure 2023-11-30 13:11:00 72 mm[Hg] [facility] Heart rate 2023-11-30 13:11:00 85 /min [facility] Body temperature 2023-11-30 13:11:00 36.56 Jeanne [facility] Respiratory rate 2023-11-30 13:11:00 17 /min [facility] Body height 2023-11-30 13:11:00 167.6 cm [facility] Body weight 2023-11-30 13:11:00 158.487 kg [facility] BMI 2023-11-30 13:11:00 56.39 kg/m2 [facility] Systolic blood pressure 2023-11-23 15:46:00 125 mm[Hg] [facility] Diastolic blood pressure 2023-11-23 15:46:00 74 mm[Hg] [facility] Heart rate 2023-11-23 15:46:00 89 /min [facility] Body temperature 2023-11-23 15:46:00 35.67 Jeanne [facility] Respiratory rate 2023-11-23 15:46:00 18 /min [facility] Body height 2023-11-23 15:46:00 167.6 cm [facility] Body weight 2023-11-23 15:46:00 157.489 kg [facility] BMI 2023-11-23 15:46:00 56.04 kg/m2 [facility] Systolic blood pressure 2023-11-19 08:00:00 124 mm[Hg] [facility] Diastolic blood pressure 2023-11-19 08:00:00 71 mm[Hg] [facility] Heart rate 2023-11-19 08:00:00 75 /min [facility] Oxygen saturation in Arterial blood by Pulse oximetry 2023-11-19 08:00:00 99 /min [facility] Body temperature 2023-11-19 05:00:00 36.5 Jeanne [facility] Respiratory rate 2023-11-19 05:00:00 19 /min [facility] Body height 2023-11-19 04:40:00 167.6 cm [facility] Body weight 2023-11-19 04:40:00 159.213 kg [facility] BMI 2023-11-19 04:40:00 56.65 kg/m2 [facility] Body height 2023-11-16 16:37:00 167.6 cm [facility] Body weight 2023-11-16 16:37:00 159.485 kg [facility] BMI 2023-11-16 16:37:00 56.75 kg/m2 [facility] Systolic blood pressure 2023-11-16 16:37:00 117 mm[Hg] [facility] Diastolic blood pressure 2023-11-16 16:37:00 68 mm[Hg] [facility] Heart rate 2023-11-16 16:37:00 80 /min [facility] Body temperature 2023-11-16 16:37:00 35.94 Jeanne [facility] Respiratory rate 2023-11-16 16:37:00 18 /min [facility] Systolic blood pressure 2023-11-02 14:11:00 109 mm[Hg] [facility] Diastolic blood pressure 2023-11-02 14:11:00 64 mm[Hg] [facility] Heart rate 2023-11-02 14:11:00 83 /min [facility] Body temperature 2023-11-02 14:11:00 35.67 Jeanne [facility] Respiratory rate 2023-11-02 14:11:00 18 /min [facility] Body height 2023-11-02 14:11:00 167.6 cm [facility] Body weight 2023-11-02 14:11:00 159.122 kg [facility] BMI 2023-11-02 14:11:00 56.62 kg/m2 [facility] Systolic blood pressure 2023-10-19 14:38:00 117 mm[Hg] [facility] Diastolic blood pressure 2023-10-19 14:38:00 73 mm[Hg] [facility] Heart rate 2023-10-19 14:38:00 83 /min [facility] Body temperature 2023-10-19 14:38:00 36.39 Jeanne [facility] Respiratory rate 2023-10-19 14:38:00 18 /min [facility] Body height 2023-10-19 14:38:00 167.6 cm [facility] Body weight 2023-10-19 14:38:00 160.8 kg [facility] BMI 2023-10-19 14:38:00 57.22 kg/m2 [facility] Systolic blood pressure 2023-10-14 06:00:00 100 mm[Hg] [facility] Diastolic blood pressure 2023-10-14 06:00:00 61 mm[Hg] [facility] Heart rate 2023-10-14 06:00:00 81 /min [facility] Oxygen saturation in Arterial blood by Pulse oximetry 2023-10-14 06:00:00 100 /min [facility] Body temperature 2023-10-14 05:03:00 36.67 Jeanne [facility] Respiratory rate 2023-10-14 05:03:00 16 /min [facility] Body height 2023-10-14 04:30:00 167.6 cm [facility] Body weight 2023-10-14 04:30:00 159.802 kg [facility] BMI 2023-10-14 04:30:00 56.86 kg/m2 [facility] Systolic blood pressure 2023-09-27 14:11:00 135 mm[Hg] [facility] Diastolic blood pressure 2023-09-27 14:11:00 75 mm[Hg] [facility] Heart rate 2023-09-27 14:11:00 87 /min [facility] Body temperature 2023-09-27 14:11:00 36.28 Jeanne [facility] Respiratory rate 2023-09-27 14:11:00 18 /min [facility] Body height 2023-09-27 14:11:00 160 cm [facility] Body weight 2023-09-27 14:11:00 161.662 kg [facility] BMI 2023-09-27 14:11:00 63.13 kg/m2 [facility] Systolic blood pressure 2023-09-15 14:06:00 116 mm[Hg] [facility] Diastolic blood pressure 2023-09-15 14:06:00 65 mm[Hg] [facility] Heart rate 2023-09-15 14:06:00 80 /min [facility] Body temperature 2023-09-15 14:06:00 35.78 Jeanne [facility] Respiratory rate 2023-09-15 14:06:00 18 /min [facility] Body height 2023-09-15 14:06:00 167.6 cm [facility] Body weight 2023-09-15 14:06:00 159.757 kg [facility] BMI 2023-09-15 14:06:00 56.85 kg/m2 [facility] Systolic blood pressure 2023-09-01 15:07:00 110 mm[Hg] [facility] Diastolic blood pressure 2023-09-01 15:07:00 63 mm[Hg] [facility] Heart rate 2023-09-01 15:07:00 81 /min [facility] Body height 2023-09-01 15:07:00 167.6 cm [facility] Body weight 2023-09-01 15:07:00 160.029 kg [facility] BMI 2023-09-01 15:07:00 56.94 kg/m2 [facility] Systolic blood pressure 2023-08-25 14:00:00 137 mm[Hg] [facility] Diastolic blood pressure 2023-08-25 14:00:00 81 mm[Hg] [facility] Heart rate 2023-08-25 14:00:00 87 /min [facility] Body temperature 2023-08-25 14:00:00 37.17 Jeanne [facility] Respiratory rate 2023-08-25 14:00:00 20 /min [facility] Body height 2023-08-25 14:00:00 167.6 cm [facility] Body weight 2023-08-25 14:00:00 158.215 kg [facility] BMI 2023-08-25 14:00:00 56.30 kg/m2 [facility] Systolic blood pressure 2023-08-10 06:00:00 151 mm[Hg] [facility] Diastolic blood pressure 2023-08-10 06:00:00 67 mm[Hg] [facility] Heart rate 2023-08-10 06:00:00 88 /min [facility] Body temperature 2023-08-10 06:00:00 36.72 Jeanne [facility] Respiratory rate 2023-08-10 06:00:00 18 /min [facility] Oxygen saturation in Arterial blood by Pulse oximetry 2023-08-10 06:00:00 98 /min [facility] Body height 2023-08-10 03:02:00 167.6 cm [facility] Body weight 2023-08-10 03:02:00 158.215 kg [facility] BMI 2023-08-10 03:02:00 56.30 kg/m2 [facility] Systolic blood pressure 2023-07-25 14:54:00 136 mm[Hg] [facility] Diastolic blood pressure 2023-07-25 14:54:00 76 mm[Hg] [facility] Heart rate 2023-07-25 14:54:00 87 /min [facility] Body temperature 2023-07-25 14:54:00 36.33 Jeanne [facility] Respiratory rate 2023-07-25 14:54:00 18 /min [facility] Body height 2023-07-25 14:54:00 167.6 cm [facility] Body weight 2023-07-25 14:54:00 157.58 kg [facility] BMI 2023-07-25 14:54:00 56.07 kg/m2 [facility] Systolic blood pressure 2023-07-18 04:10:00 149 mm[Hg] [facility] Diastolic blood pressure 2023-07-18 04:10:00 73 mm[Hg] [facility] Heart rate 2023-07-18 04:10:00 81 /min [facility] Body temperature 2023-07-18 04:10:00 37.5 Jeanne [facility] Respiratory rate 2023-07-18 04:10:00 20 /min [facility] Body height 2023-07-18 04:10:00 167.6 cm [facility] Body weight 2023-07-18 04:10:00 162.388 kg [facility] BMI 2023-07-18 04:10:00 57.78 kg/m2 [facility] Oxygen saturation in Arterial blood by Pulse oximetry 2023-07-18 04:10:00 99 /min [facility] Systolic blood pressure 2023-06-29 13:27:00 131 mm[Hg] [facility] Diastolic blood pressure 2023-06-29 13:27:00 77 mm[Hg] [facility] Heart rate 2023-06-29 13:27:00 87 /min [facility] Body temperature 2023-06-29 13:27:00 36.78 Jeanne [facility] Respiratory rate 2023-06-29 13:27:00 17 /min [facility] Body height 2023-06-29 13:27:00 167.6 cm [facility] Body weight 2023-06-29 13:27:00 157.217 kg [facility] BMI 2023-06-29 13:27:00 55.94 kg/m2 [facility] Systolic blood pressure 2023-06-12 05:00:00 144 mm[Hg] [facility] Diastolic blood pressure 2023-06-12 05:00:00 98 mm[Hg] [facility] Heart rate 2023-06-12 04:37:00 84 /min [facility] Body temperature 2023-06-12 04:37:00 37.61 Jeanne [facility] Respiratory rate 2023-06-12 04:37:00 20 /min [facility] Body height 2023-06-12 04:37:00 167.6 cm [facility] Body weight 2023-06-12 04:37:00 167.831 kg [facility] BMI 2023-06-12 04:37:00 59.72 kg/m2 [facility] Oxygen saturation in Arterial blood by Pulse oximetry 2023-06-12 04:37:00 100 /min [facility] Systolic blood pressure 2021-09-02 12:46:00 178 mm[Hg] [facility] Diastolic blood pressure 2021-09-02 12:46:00 99 mm[Hg] [facility] Heart rate 2021-09-02 12:46:00 101 /min [facility] Body temperature 2021-09-02 12:46:00 38.94 Jeanne [facility] Respiratory rate 2021-09-02 12:46:00 18 /min [facility] Body height 2021-09-02 12:46:00 170.2 cm [facility] Body weight 2021-09-02 12:46:00 158.759 kg [facility] BMI 2021-09-02 12:46:00 54.82 kg/m2 [facility] Oxygen saturation in Arterial blood by Pulse oximetry 2021-09-02 12:46:00 96 /min [facility] Systolic blood pressure 2021-09-01 20:50:00 151 mm[Hg] [facility] Diastolic blood pressure 2021-09-01 20:50:00 94 mm[Hg] [facility] Heart rate 2021-09-01 20:50:00 91 /min [facility] Body temperature 2021-09-01 20:50:00 37.56 Jeanne [facility] Respiratory rate 2021-09-01 20:50:00 18 /min [facility] Body height 2021-09-01 20:50:00 170.2 cm [facility] Body weight 2021-09-01 20:50:00 181.439 kg [facility] BMI 2021-09-01 20:50:00 62.65 kg/m2 [facility] Oxygen saturation in Arterial blood by Pulse oximetry 2021-09-01 20:50:00 100 /min [facility] Heart rate 2021-02-09 11:28:00 84 /min [facility] Oxygen saturation in Arterial blood by Pulse oximetry 2021-02-09 11:28:00 96 /min [facility] Systolic blood pressure 2021-02-09 11:27:00 174 mm[Hg] [facility] Diastolic blood pressure 2021-02-09 11:27:00 116 mm[Hg] [facility] Body temperature 2021-02-09 11:19:00 36.83 Jeanne Simultaneous filing. User may not have seen previous data. [facility] Respiratory rate 2021-02-09 11:19:00 18 /min [facility] Body height 2021-02-09 11:19:00 167.6 cm [facility] Body weight 2021-02-09 11:19:00 158.714 kg [facility] BMI 2021-02-09 11:19:00 56.48 kg/m2 [facility] Systolic blood pressure 2020-10-09 13:00:00 149 mm[Hg] [facility] Diastolic blood pressure 2020-10-09 13:00:00 94 mm[Hg] [facility] Heart rate 2020-10-09 13:00:00 79 /min [facility] Respiratory rate 2020-10-09 13:00:00 18 /min [facility] Oxygen saturation in Arterial blood by Pulse oximetry 2020-10-09 13:00:00 100 /min [facility] Body temperature 2020-10-09 12:23:00 37 Jeanne [facility] Body height 2020-10-09 12:23:00 167.6 cm [facility] Body weight 2020-10-09 12:23:00 167.831 kg [facility] BMI 2020-10-09 12:23:00 59.72 kg/m2 [facility] Systolic blood pressure 2020-10-09 13:00:00 149 mm[Hg] [facility] Diastolic blood pressure 2020-10-09 13:00:00 94 mm[Hg] [facility] Heart rate 2020-10-09 13:00:00 79 /min [facility] Respiratory rate 2020-10-09 13:00:00 18 /min [facility] Oxygen saturation in Arterial blood by Pulse oximetry 2020-10-09 13:00:00 100 /min [facility] Body temperature 2020-10-09 12:23:00 37 Jeanne [facility] Body height 2020-10-09 12:23:00 167.6 cm [facility] Body weight 2020-10-09 12:23:00 167.831 kg [facility] BMI 2020-10-09 12:23:00 59.72 kg/m2 [facility] Systolic blood pressure 2020-08-14 06:46:00 151 mm[Hg] [facility] Diastolic blood pressure 2020-08-14 06:46:00 92 mm[Hg] [facility] Heart rate 2020-08-14 06:46:00 85 /min [facility] Respiratory rate 2020-08-14 06:46:00 20 /min [facility] Oxygen saturation in Arterial blood by Pulse oximetry 2020-08-14 06:46:00 97 /min [facility] Body temperature 2020-08-14 05:53:31 37.72 Jeanne [facility] Body weight 2020-08-14 05:50:00 167.831 kg [facility] BMI 2020-08-14 05:50:00 57.95 kg/m2 [facility] Systolic blood pressure 2020-08-14 06:46:00 151 mm[Hg] [facility] Diastolic blood pressure 2020-08-14 06:46:00 92 mm[Hg] [facility] Heart rate 2020-08-14 06:46:00 85 /min [facility] Respiratory rate 2020-08-14 06:46:00 20 /min [facility] Oxygen saturation in Arterial blood by Pulse oximetry 2020-08-14 06:46:00 97 /min [facility] Body temperature 2020-08-14 05:53:31 37.72 Jeanne [facility] Body weight 2020-08-14 05:50:00 167.831 kg [facility] BMI 2020-08-14 05:50:00 57.95 kg/m2 [facility] Body temperature 2020-05-01 13:17:00 36.94 Jeanne [facility] Respiratory rate 2020-05-01 13:17:00 16 /min [facility] Body height 2020-05-01 13:17:00 170.2 cm [facility] Body weight 2020-05-01 13:17:00 159.326 kg [facility] BMI 2020-05-01 13:17:00 55.01 kg/m2 [facility] Systolic blood pressure 2020-05-01 13:17:00 141 mm[Hg] [facility] Diastolic blood pressure 2020-05-01 13:17:00 92 mm[Hg] [facility] Heart rate 2020-05-01 13:17:00 75 /min [facility] Body temperature 2020-05-01 13:17:00 36.94 Jeanne [facility] Respiratory rate 2020-05-01 13:17:00 16 /min [facility] Body height 2020-05-01 13:17:00 170.2 cm [facility] Body weight 2020-05-01 13:17:00 159.326 kg [facility] BMI 2020-05-01 13:17:00 55.01 kg/m2 [facility] Systolic blood pressure 2020-05-01 13:17:00 141 mm[Hg] [facility] Diastolic blood pressure 2020-05-01 13:17:00 92 mm[Hg] [facility] Heart rate 2020-05-01 13:17:00 75 /min [facility] Systolic blood pressure 2019-04-25 00:34:00 164 mm[Hg] [facility] Diastolic blood pressure 2019-04-25 00:34:00 90 mm[Hg] [facility] Heart rate 2019-04-25 00:34:00 95 /min [facility] Body temperature 2019-04-25 00:34:00 37.17 Jeanne [facility] Respiratory rate 2019-04-25 00:34:00 18 /min [facility] Body height 2019-04-25 00:34:00 170.2 cm [facility] Body weight 2019-04-25 00:34:00 161.072 kg [facility] BMI 2019-04-25 00:34:00 55.62 kg/m2 [facility] Oxygen saturation in Arterial blood by Pulse oximetry 2019-04-25 00:34:00 99 /min [facility] Procedures Procedure Date / Time Performed Performing Clinician Source POCT TEST 2024-02-28 14:50:00 Baltazar Cornelius [facility] POCT TEST 2024-02-14 15:31:00 Baltazar Cornelius [facility] POCT URINALYSIS 2023-12-07 14:09:00 Jackie Alfaro [facility] POCT URINALYSIS 2023-11-30 00:00:00 Jackie Alfaro [facility] POCT URINALYSIS 2023-11-23 15:49:00 Jackie Alfaro [facility] SGOT (ASPARTATE AMINO TRANSFER) 2023-11-19 06:49:00 Yaritza [facility] CREATININE 2023-11-19 06:49:00 He[place], [facility] ALANINE AMINO TRANSFERASE(SGPT 2023-11-19 06:49:00 [facility] LACTATE DEHYDROGENASE 2023-11-19 06:49:00 [place] , [facility] URIC ACID 2023-11-19 06:49:00 Yaritza [facility] CBC WITH DIFF 2023-11-19 06:49[facility]00 [facility]ATIO URINE RANDOM 2023-11-19 06:49:00 [facility], [facility] ADC CLC OR LCC ONLY - WET PREP 2023-11-19 06:10:00 Yaritza [facility] URINALYSIS 2023-11-19 05:25:00 Yaritza [facility] CONSENT/REFUSAL FOR DIAGNOSIS AND TREATMENT 2023-11-19 04:30:01 Doctor Unassigned, Fate [facility] POCT URINALYSIS 2023-11-16 16:39:00 Jackie Alfaro [facility] POCT URINALYSIS 2023-11-02 14:13:00 Jackie Alfaro [facility] POCT URINALYSIS 2023-10-19 14:39:00 Jackie Alfaro [facility] SECOND AND THIRD TRIMESTER ULTRASOUND 2023-10-19 14:29:00 Geoff Cornelius [facility] POCT GLUCOSE (AUTOMATED) 2023-10-14 05:17:00 Lesly Craig [facility] ASSIGNMENT OF BENEFITS 2023-10-14 04:14:54 Docto r Unassigned, Fate [facility] NOTICE OF PRIVACY PRACTICES 2023-10-14 04:14:33 Doctor Unassigned, Fate [facility] CONSENT/REFUSAL FOR DIAGNOSIS AND TREATMENT 2023-10-14 04:14:03 Doctor Unassigned, Fate [facility] TDAP VACCINE, >11 YRS, IM 2023-09-27 14:27:57 Geoff Cornelius [facility] POCT URINALYSIS 2023-09-27 14:14:00 Jackie Alfaro [facility] 3 HR GLUCOSE TOLERANCE TEST 2023-09-21 17:28:00 Geoff Cornelius [facility] SECOND AND THIRD TRIMESTER ULTRASOUND 2023-09-21 16:35:00 Geoff Cornelius [facility] 2 HR GLUCOSE TOLERANCE TEST 2023-09-21 16:28:00 Geoff Cornelius [facility] 1 HR GLUCOSE TOLERANCE TEST 2023-09-21 15:28:00 Geoff Cornelius [facility] GLUCOSE FASTING 2023-09-21 14:28:00 Geoff Cornelius [facility] CBC WITH DIFF 2023-09-21 14:28:00 Geoff Cornelius [facility] 3 HR GLUCOSE TOLERANCE PANEL 2023-09-21 14:28:00 Geoff Cornelius [facility] POCT URINALYSIS 2023-09-15 14:10:00 Jackie Alfaro [facility] STERILIZATION CONSENT FORM 2023-09-15 06:01:00 Doctor Unassigned, Fate [facility] POCT URINALYSIS 2023-08-25 14:03:00 Jackie Alfaro [facility] CONSENT FOR NIPT 2023-08-25 06:01:00 Doctor Unas signed, Fate [facility] SECOND AND THIRD TRIMESTER ULTRASOUND 2023-08-24 16:22:00 Geoff Cornelius [facility] US PELVIS > 14 WEEKS WITH TRANSVAGINAL 2023-08-10 05:45:00 Naomy Cooper [facility] LIPASE 2023-08-10 03:29:00 Naomy Cooper [facility] COMP. METABOLIC PANEL ([id number]) 2023-08-10 03:29:00 Naomy Cooper [facility] TOTAL BETA HCG ASSAY 2023-08-10 03:29:00 Naomy Cooper [facility] CBC WITH DIFF 2023-08-10 03:29:00 [facility] 2023-08-10 03:29:00 Naomy Cooper [facility] NOTICE OF PRIVACY PRACTICES 2023-08-10 02:49:12 Doctor Unassigned, Fate [facility] CONSENT/REFUSAL FOR DIAGNOSIS AND TREATMENT 2023-08-10 02:48:34 Doctor Unassigned, Fate [facility] POCT URINALYSIS 2023-07-25 14:55:00 Jackie Alfaro [facility] ASSIGNMENT OF BENEFITS 2023-07-18 05:38:05 Docto r Unassigned, Fate [facility] NOTICE OF PRIVACY PRACTICES 2023-07-18 03:58:31 Doctor Unassigned, Fate [facility] CONSENT/REFUSAL FOR DIAGNOSIS AND TREATMENT 2023-07-18 03:57:41 Doctor Unassigned, Fate [facility] CREATININE U 24 HR 2023-07-12 13:25:00 Sue Alfaro [facility] PROTEIN QUANT U/24H 2023-07-12 13:25:00 Jasmine Alfaro [facility] ASSIGNMENT OF BENEFITS 2023-06-29 13:02:56 Docto r Unassigned, Fate [facility] POCT TEST 2023-06-29 00:00:00 Jasmine Alfaro [facility] POCT URINALYSIS W/O SPECIFIC GRAVITY 2023-06-29 00:00:00 Jackie Alfaro [facility] POCT TEST 2023-06-12 04:56:00 Keyana Silva [facility] CONSENT/REFUSAL FOR DIAGNOSIS AND TREATMENT 2023-06-12 04:17:29 Doctor Unassigned, Fate [facility] CONSENT/REFUSAL FOR DIAGNOSIS AND TREATMENT 2021-09-02 12:42:21 Doctor Unassigned, Fate [facility] ASSIGNMENT OF BENEFITS 2021-09-01 21:01:09 Docto r Unassigned, Fate [facility] NOTICE OF PRIVACY PRACTICES 2021-09-01 20:19:48 Doctor Unassigned, Fate [facility] CONSENT/REFUSAL FOR DIAGNOSIS AND TREATMENT 2021-09-01 20:19:20 Doctor Unassigned, Fate [facility] XR HAND 3+ VW RIGHT 2021-02-09 11:33:29 Lavon Nieves [facility] NOTICE OF PRIVACY PRACTICES 2021-02-09 11:15:53 Doctor Unassigned, Fate [facility] CONSENT/REFUSAL FOR DIAGNOSIS AND TREATMENT 2021-02-09 11:13:48 Doctor Unassigned, Fate [facility] NOTICE OF PRIVACY PRACTICES 2020-10-09 12:16:21 Doctor Unassigned, Fate [facility] CONSENT/REFUSAL FOR DIAGNOSIS AND TREATMENT 2020-10-09 12:15:21 Doctor Unassigned, Fate [facility] POCT TEST 2020-08-14 06:01:00 Trina Carrillo [facility] ASSIGNMENT OF BENEFITS 2020-05-01 12:50:33 Docto r Unassigned, Fate [facility] XR WRIST 3+ VW LEFT 2019-04-25 01:10:18 Marta Bello [facility] Encounters Start Date/Time End Date/Time Encounter Type Admission Type Attending Clinicians Care Facility Care Department Encounter ID Source 2023-10-14 01:06:37 Outpatient X [facility] APRIL [id number] [facility] 2021-07-18 18:28:29 Emergency [facility] [id number] [facility] 2021-07-18 07:53:56 Emergency [facility] [id number] [facility] 2024-04-24 08:45:00 2024-04-24 08:45:00 Outpatient R GEOFF CORNELIUS [facility] [id number] [facility] 2024-04-10 08:45:00 2024-04-10 08:45:00 Outpatient R GEOFF CORNELIUS [facility] [id number] [facility] 2024-02-28 00:00:00 2024-03-31 18:19:08 Patient Secure Msg Geoff Cornelius [facility] EXPERIMENTAL DISPLAY BUILDER [facility] & CHILD [facility] [id number] 350.1.13.10 4.2.7.2.686 [id number] [facility] 2024-02-28 00:00:00 2024-02-29 10:10:03 Refill Geoff Cornelius [facility] EXPERIMENTAL DISPLAY BUILDER [facility] & CHILD [facility] [id number] 350.1.13.10 4.2.7.2.686 [id number] [facility] 2024-02-28 09:45:00 2024-02-28 10:41:00 Outpatient R GEOFF CORNELIUS [facility] [id number] [facility] 2024-02-28 09:45:00 2024-02-28 10:41:00 Office Visit Geoff Cornelius [facility] EXPERIMENTAL DISPLAY BUILDER [facility] & CHILD [facility] [id number] 350.1.13.10 4.2.7.2.686 [id number] [facility] 2024-02-14 10:30:00 2024-02-14 10:51:20 Outpatient R GEOFF CORNELIUS [facility] [id number] [facility] 2024-02-14 10:30:00 2024-02-14 10:51:20 Office Visit Geoff Cornelius [facility] EXPERIMENTAL DISPLAY BUILDER [facility] CHILD [facility] [id number] 350.1.13.10 4.2.7.2.686 [id number] [facility] 2024-01-03 00:00:00 2024-02-04 18:06:30 Patient Secure Msg Doctor Unassigned, Fate [facility] 1.840.114 350.1.13.10 4.2.7.2.686 [id number] [facility] 2024-01-03 00:00:00 2024-02-04 18:06:00 Patient Secure Msg Doctor Unassigned, Fate [facility] [id number] 350.1.13.10 4.2.7.2.686 [id number] [facility] 2024-01-23 08:45:00 2024-01-23 09:04:58 Outpatient R GEOFF CORNELIUS [facility] [id number] [facility] 2024-01-23 08:45:00 2024-01-23 09:04:58 Office Visit Geoff Cornelius [facility] EXPERIMENTAL DISPLAY BUILDER [facility] 1.0.114 350.1.13.10 4.2.7.2.686 [id number] [facility] 2023-12-30 07:45:00 2023-12-30 08:40:15 Outpatient R GEOFF CORNELIUS [facility] [id number] [facility] 2023-12-30 07:45:00 2023-12-30 08:40:15 Routine Visit Geoff Cornelius [facility] EXPERIMENTAL DISPLAY BUILDER [facility] & CHILD [facility] 1..840.114 350.1.13.10 4.2.7.2.686 [id number] [facility] 2023-12-09 09:19:00 2023-12-11 12:00:00 Inpatient P ELE, HEATHER ELE, HEATHER [facility] APRIL [id number] [facility] 2023-12-07 09:00:00 2023-12-07 09:15:00 Routine Visit Geoff Cornelius [facility] EXPERIMENTAL DISPLAY BUILDER [facility] & CHILD [facility] ..840.114 350.1.13.10 4.2.7.2.686 [id number] [facility] 2023-12-07 09:00:00 2023-12-07 09:00:00 Outpatient R GEOFF CORNELIUS [facility] [id number] [facility] 2023-12-02 09:00:00 2023-12-02 09:00:00 Outpatient R GEOFF CORNELIUS [facility] [id number] [facility] 2023-11-30 08:00:00 2023-11-30 08:39:51 Outpatient R GEOFF CORNELIUS [facility] [id number] [facility] 2023-11-30 08:00:00 2023-11-30 08:39:51 Routine Visit Geoff Cornelius [facility] EXPERIMENTAL DISPLAY BUILDER [facility] & CHILD [facility] ..840.114 350.1.13.10 4.2.7.2.686 [id number] [facility] 2023-11-23 09:45:00 2023-11-23 10:11:25 Outpatient R GEOFF CORNELIUS [facility] [id number] [facility] 2023-11-23 09:45:00 2023-11-23 10:11:25 Routine Visit Geoff Cornelius [facility] EXPERIMENTAL DISPLAY BUILDER [facility] & CHILD [facility] 1.0.114 350.1.13.10 4.2.7.2.686 [id number] [facility] 2023-11-18 22:41:00 2023-11-19 03:00:00 Outpatient X HEREDIA-WILMAN S, LESLY HEREDIA-WILMAN S, LESLY [facility] APRIL [id number] [facility] 2023-11-18 22:41:00 2023-11-19 03:00:00 Emergency Heredia-Wilman s, Lesly [facility] 1.0.114 350.1.13.10 4.2.7.2.686 [id number] [facility] 2023-11-16 10:45:00 2023-11-16 11:07:43 Outpatient R GEOFF CORNELIUS [facility] [id number] [facility] 2023-11-16 10:45:00 2023-11-16 11:07:43 Routine Visit Geoff Cornelius [facility] EXPERIMENTAL DISPLAY BUILDER [facility] & CHILD [facility] 1.84.114 350.1.13.10 4.2.7.2.686 [id number] [facility] 2023-11-02 08:00:00 2023-11-02 08:29:56 Outpatient R GEOFF CORNELIUS [facility] [id number] [facility] 2023-11-02 08:00:00 2023-11-02 08:29:56 Routine Visit Geoff Cornelius [facility] EXPERIMENTAL DISPLAY BUILDER [facility] & CHILD [facility] 1.0.114 350.1.13.10 4.2.7.2.686 [id number] [facility] 2023-10-25 00:00:00 2023-10-25 00:00:00 Patient Secure Msg Geoff Cornelius [facility] EXPERIMENTAL DISPLAY BUILDER [facility] & CHILD [facility] [id number] 350.1.13.10 4.2.7.2.686 [id number] [facility] 2023-10-21 00:00:00 2023-10-21 00:00:00 Abstract Geoff Cornelius [facility] EXPERIMENTAL DISPLAY BUILDER [facility] CHILD [facility] [id number] 350.1.13.10 4.2.7.2.686 [id number] [facility] 2023-10-19 08:45:00 2023-10-19 09:09:23 Routine Visit Geoff Cornelius [facility] EXPERIMENTAL DISPLAY BUILDER [facility] CHILD [facility] [id number] 350.1.13.10 4.2.7.2.686 [id number] [facility] 2023-10-19 08:00:00 2023-10-19 08:26:37 Outpatient P ANNABELLA PRECIADO [facility] [id number] [facility] 2023-10-19 08:00:00 2023-10-19 08:26:37 Wash Oil Cooler Operator Visit Ultrasound, [facility] Annabella Preciado [facility] EXPERIMENTAL DISPLAY BUILDER [facility] & CHILD [facility] [id number] 350.1.13.10 4.2.7.2.686 [id number] [facility] 2023-10-13 22:31:00 2023-10-14 00:17:00 Outpatient X HEREDIA-WILMAN S, LESLY HEREDIA-WILMAN S, LESLY [facility] APRIL [id number] [facility] 2023-10-13 22:31:00 2023-10-14 00:17:00 Emergency Heredia-Lesly Cordova [facility] [id number] 350.1.13.10 4.2.7.2.686 [id number] [facility] 2023-10-11 07:45:00 2023-10-11 07:45:00 Outpatient R GEOFF CORNELIUS [facility] [id number] [facility] 2023-09-28 00:00:00 2023-09-28 00:00:00 Abstract Geoff Cornelius [facility] EXPERIMENTAL DISPLAY BUILDER [facility] & CHILD [facility] 1.2.840.114 350.1.13.10 4.2.7.2.686 [id number] [facility] 2023-09-27 07:45:00 2023-09-27 08:37:25 Outpatient R GEOFF CORNELIUS [facility] [id number] [facility] 2023-09-27 07:45:00 2023-09-27 08:37:25 Routine Visit Geoff Cornelius [facility] EXPERIMENTAL DISPLAY BUILDER [facility] & CHILD [facility] [id number] 350.1.13.10 4.2.7.2.686 [id number] [facility] 2023-09-21 09:45:00 2023-09-21 11:45:50 Wash Oil Cooler Operator Visit Ultrasound, Geoff Hatfield [facility] EXPERIMENTAL DISPLAY BUILDER [facility] & CHILD [facility] [id number] 350.1.13.10 4.2.7.2.686 [id number] [facility] 2023-09-21 08:00:00 2023-09-21 11:45:38 Outpatient R GEOFF CORNELIUS [facility] [id number] [facility] 2023-09-21 08:00:00 2023-09-21 11:45:38 Wash Oil Cooler Operator Visit Lab, Josef Cornelius, Geoff Douglas [facility] EXPERIMENTAL DISPLAY BUILDER [facility]ERNAL & CHILD [facility] 1..840.114 350.1.13.10 4.2.7.2.686 [id number] [facility] 2023-09-15 08:00:00 2023-09-15 08:47:46 Outpatient R GEOFF CORNELIUS [facility] [id number] [facility] 2023-09-15 08:00:00 2023-09-15 08:47:46 Routine Visit Ashli Geoff Douglas [facility] EXPERIMENTAL DISPLAY BUILDER [facility] & CHILD [facility] 1..840.114 350.1.13.10 4.2.7.2.686 [id number] [facility] 2023-09-15 00:00:00 2023-09-15 00:00:00 Orders Only Doctor Unassigned, Fate [facility] 1.840.114 350.1.13.10 4.2.7.2.686 [id number] [facility] 2023-09-09 00:00:00 2023-09-09 00:00:00 Outpatient R OMAR LEE CRAIG [facility] [id number] [facility] 2023-09-01 09:00:00 2023-09-01 09:14:53 Outpatient R OMAR LEE CRAIG [facility] [id number] [facility] 2023-09-01 09:00:00 2023-09-01 09:14:53 [facility] [id number] [facility] 2023-08-25 07:45:00 2023-08-25 08:48:59 Outpatient R GEOFF CORNELIUS [facility] [id number] [facility] 2023-08-25 07:45:00 2023-08-25 08:48:59 Routine Visit Geoff Cornelius [facility] EXPERIMENTAL DISPLAY BUILDER [facility] MATERNAL & CHILD [facility] 1.2.840.114 350.1.13.10 4.2.7.2.686 [id number] [facility] 2023-08-25 00:00:00 2023-08-25 00:00:00 Orders Only Doctor Unassigned, Fate [facility] 1.2.840.114 350.1.13.10 4.2.7.2.686 [id number] [facility] 2023-08-24 09:00:00 2023-08-24 10:35:47 Outpatient P BECCA CALLOWAY [facility] [id number] [facility] 2023-08-24 09:00:00 2023-08-24 10:35:47 Wash Oil Cooler Operator Visit 2, [facility] Room Mikael Callowayanak [facility] EXPERIMENTAL DISPLAY BUILDER [facility] MATERNAL & CHILD [facility] 1.840.114 350.1.13.10 4.2.7.2.686 [id number] [facility] 2023-08-24 00:00:00 2023-08-24 00:00:00 Abstract Geoff Cornelius [facility] EXPERIMENTAL DISPLAY BUILDER [facility] MATERNAL & CHILD [facility] 1.2840.114 350.1.13.10 4.2.7.2.686 [id number] [facility] 2023-08-23 13:15:00 2023-08-23 13:15:00 Outpatient R GEOFF CORNELIUS [facility] [id number] [facility] 2023-08-19 00:00:00 2023-08-19 00:00:00 Telephone Geoff Cornelius [facility] EXPERIMENTAL DISPLAY BUILDER [facility] MATERNAL & CHILD [facility] 1.2840.114 350.1.13.10 4.2.7.2.686 [id number] [facility] 2023-08-19 00:00:00 2023-08-19 00:00:00 Telephone Geoff Cornelius [facility] EXPERIMENTAL DISPLAY BUILDER [facility] & CHILD [facility] 1.2.840.114 350.1.13.10 4.2.7.2.686 [id number] [facility] 2023-08-19 00:00:00 2023-08-19 00:00:00 Telephone Geoff Cornelius [facility] EXPERIMENTAL DISPLAY BUILDER [facility] 1.2840.114 350.1.13.10 4.2.7.2.686 [id number] [facility] 2023-08-19 00:00:00 2023-08-19 00:00:00 Patient Secure Msg Pcp, Patient Does Not Have A [facility] 1.2840.114 350.1.13.10 4.2.7.2.686 [id number] [facility] 2023-08-09 21:13:00 2023-08-10 00:40:00 Emergency X NAOMY COPOER [facility] ERT [id number] [facility] 2023-08-09 21:13:00 2023-08-10 00:40:00 Emergency Naomy Cooper [facility] 1.2840.114 350.1.13.10 4.2.7.2.686 [id number] [facility] 2023-08-08 00:00:00 2023-08-08 00:00:00 Patient Secure Msg Geoff Cornelius [facility] EXPERIMENTAL DISPLAY BUILDER [facility] & CHILD [facility] 1.2.840.114 350.1.13.10 4.2.7.2.686 [id number] [facility] 2023-07-25 09:00:00 2023-07-25 09:28:16 Outpatient R GEOFF CORNELIUS [facility] [id number] [facility] 2023-07-25 09:00:00 2023-07-25 09:28:16 Routine Visit Geoff Cornelius [facility] EXPERIMENTAL DISPLAY BUILDER [facility] MATERNAL & CHILD [facility] 1.2.840.114 350.1.13.10 4.2.7.2.686 [id number] [facility] 2023-07-17 23:12:00 2023-07-18 00:48:00 Emergency X ZANE ANDERSON [facility] ERT [id number] [facility] 2023-07-17 23:12:00 2023-07-18 00:48:00 Emergency Zane Anderson [facility] 1.840.114 350.1.13.10 4.2.7.2.686 [id number] [facility] 2023-07-18 00:00:00 2023-07-18 00:00:00 Patient Secure Msg Doctor Unassigned, Fate [facility] 1.0.114 350.1.13.10 4.2.7.2.686 [id number] [facility] 2023-07-12 07:45:00 2023-07-12 07:45:00 Wash Oil Cooler Operator Visit Lab, Ang-Rmchp Geoff Cornelius [facility] EXPERIMENTAL DISPLAY BUILDER [facility] & CHILD [facility] 1.2840.114 350.1.13.10 4.2.7.2.686 [id number] [facility] 2023-07-12 07:45:00 2023-07-12 07:37:34 Outpatient R GEOFF CORNELIUS [facility] [id number] [facility] 2023-07-11 00:00:00 2023-07-11 00:00:00 Telephone Jackie Alfaro [facility] EXPERIMENTAL DISPLAY BUILDER [facility] MATERNAL & CHILD [facility] 1.2.840.114 350.1.13.10 4.2.7.2.686 [id number] [facility] 2023-07-04 08:00:00 2023-07-04 08:05:46 Outpatient R GEOFF CORNELIUS [facility] [id number] [facility] 2023-07-04 08:00:00 2023-07-04 08:05:46 Wash Oil Cooler Operator Visit Lab, Ang-Rmchp Geoff Cornelius [facility] EXPERIMENTAL DISPLAY BUILDER [facility] MATERNAL & CHILD [facility] 1.2.840.114 350.1.13.10 4.2.7.2.686 [id number] [facility] 2023-07-04 00:00:00 2023-07-04 00:00:00 Telephone Jackie Alfaro [facility] EXPERIMENTAL DISPLAY BUILDER [facility] & CHILD [facility] 1.2.840.114 350.1.13.10 4.2.7.2.686 [id number] [facility] 2023-06-30 00:00:00 2023-06-30 00:00:00 Case Management Jackie Alfaro [facility] EXPERIMENTAL DISPLAY BUILDER [facility] CHILD [facility] 1.2.840.114 350.1.13.10 4.2.7.2.686 [id number] [facility] 2023-06-30 00:00:00 2023-06-30 00:00:00 Telephone Jakcie Alfaro [facility] EXPERIMENTAL DISPLAY BUILDER [facility] & CHILD [facility] 1.2.840.114 350.1.13.10 4.2.7.2.686 [id number] [facility] 2023-06-29 08:15:00 2023-06-29 09:10:32 Outpatient R JACKIE ALFARO [facility] [id number] [facility] 2023-06-29 08:15:00 2023-06-29 09:10:32 Initial Visit Jackie Alfaro [facility] EXPERIMENTAL DISPLAY BUILDER [facility] MATERNAL & CHILD [facility] 1.2840.114 350.1.13.10 4.2.7.2.686 [id number] [facility] 2023-06-29 00:00:00 2023-06-29 00:00:00 Orders Only Doctor Unassigned, Fate [facility] 1.2.114 350.1.13.10 4.2.7.2.686 [id number] [facility] 2023-06-11 23:45:00 2023-06-12 01:41:00 Emergency X LUCIANO SILVA [facility] ERT [id number] [facility] 2023-06-11 23:45:00 2023-06-12 01:41:00 Emergency Luciano Silva [facility] 1.840.114 350.1.13.10 4.2.7.2.686 [id number] [facility] 2021-09-02 06:37:00 2021-09-02 07:51:00 Emergency X ANAT JONES [facility] ERT [id number] [facility] 2021-09-02 06:37:00 2021-09-02 07:51:00 Emergency Anat Jones [facility] 1.284.114 350.1.13.10 4.2.7.2.686 [id number] [facility] 2021-09-01 14:51:00 2021-09-01 15:14:00 Emergency ANAT HALE [facility] ERT [id number] [facility] 2021-09-01 14:51:00 2021-09-01 15:14:00 Emergency Anat Jones [facility] 1.2840.114 350.1.13.10 4.2.7.2.686 [id number] [facility] 2021-09-01 00:00:00 2021-09-01 00:00:00 Orders Only Doctor Unassigned, Fate [facility] 1.2.840.114 350.1.13.10 4.2.7.2.686 [id number] [facility] 2021-02-09 06:22:00 2021-02-09 07:34:00 Emergency Lavon Nieves Mad[facility] 1.2.840.114 350.1.13.10 4.2.7.2.686 [id number] [facility] 2021-02-09 06:22:00 2021-02-09 07:34:00 [facility] [id number] [facility] 2020-12-09 00:00:00 2020-12-09 00:00:00 Patient Outreach Lenin Shea [facility] 1.2.840.114 350.1.13.10 4.2.7.2.686 [id number] [facility] 2020-10-09 06:19:00 2020-10-09 08:57:00 Emergency Theresa Alcantara [facility] 1.2.840.114 350.1.13.10 4.2.7.2.686 [id number] 2020-10-09 06:19:00 2020-10-09 08:57:00 Emergency Theresa Alcantara [facility] 1.2.840.114 350.1.13.10 4.2.7.2.686 [id number] [id number] [facility] 2020-10-09 00:00:00 2020-10-09 00:00:00 Orders Only Doctor Unassigned, Fate [facility] 1.2.840.114 350.1.13.10 4.2.7.2.686 [id number] [facility] 2020-10-09 00:00:00 2020-10-09 00:00:00 Orders Only Doctor Unassigned, Fate [facility] 1.2.840.114 350.1.13.10 4.2.7.2.686 [id number] 2020-08-13 23:46:00 2020-08-14 00:58:00 Emergency Airam Carrillo [facility] 1.2.840.114 350.1.13.10 4.2.7.2.686 [id number] [facility] 2020-08-13 23:46:00 2020-08-14 00:58:00 Emergency Airam Carrillo [facility] 1.2.840.114 350.1.13.10 4.2.7.2.686 [id number] 2020-05-05 00:00:00 2020-05-05 00:00:00 Telephone Juan Jones [facility] EXPERIMENTAL DISPLAY BUILDER [facility] MATERNAL & CHILD [facility] 1.2.840.114 350.1.13.10 4.2.7.2.686 [id number] [facility] 2020-05-05 00:00:00 2020-05-05 00:00:00 Telephone Juan Jones [facility] EXPERIMENTAL DISPLAY BUILDER [facility] & CHILD [facility] 1.2.840.114 350.1.13.10 4.2.7.2.686 [id number] 2020-05-01 07:54:53 2020-05-01 08:58:33 Office Visit Juan Jones [facility] EXPERIMENTAL DISPLAY BUILDER [facility] & CHILD [facility] 1.2.840.114 350.1.13.10 4.2.7.2.686 [id number] [facility] 2020-05-01 07:54:53 2020-05-01 08:58:33 Office Visit Juan Jones [facility] EXPERIMENTAL DISPLAY BUILDER [facility]ERNAL & CHILD [facility] 1.2.840.114 350.1.13.10 4.2.7.2.686 [id number] 2020-05-01 08:00:00 2020-05-01 08:00:00 Outpatient R JUAN JONES [facility] [id number] [facility] 2020-05-01 00:00:00 2020-05-01 00:00:00 Orders Only Doctor Unassigned, Fate [facility] 1.2.840.114 350.1.13.10 4.2.7.2.686 [id number] [facility] 2019-04-24 20:31:49 2019-04-24 22:36:[address] [facility] 1.2.840.114 350.1.13.10 4.2.7.2.686 [id number] [facility] Results Test Description Test Time Test Comments Results Result Co mments Source [id number] 14:50:00* Test Item Value Reference Range Interpretation Comme nts POCT PREG (test code = 1605) Negative On board controls acceptable with C Line (test code = 3574) Yes POCT PREG LOT # (test code = 3575) POCT PREG TEST DATE ( test code = 3576) [facility] [id number] 15:31:00* Test Item Value Reference Range Interpretation Comme nts POCT PREG (test code = 1605) Negative On board controls acceptable with C Line (test code = 3574) Yes POCT PREG LOT # (test code = 3575) POCT PREG TEST DATE ( test code = 3576) [facility] [id number] 15:31:00* Test Item Value Reference Range Interpretation Comme nts POCT PREG (test code = 1605) Negative On board controls acceptable with C Line (test code = 3574) Yes POCT PREG LOT # (test code = 3575) POCT PREG TEST DATE ( test code = 3576) [facility] URINALYSIS W SPECIFIC [id number] 14:10:00* Test Item Value Reference Range Interpretation Comme nts POCT U SP GRAV (test code = 3255) . 1.005-1.025 POCT PH U (test code = 3254) . 5-8 POCT U LEUK EST (test code = 3263) . Negative - N egative POCT U NIT (test code = 3262) . Negative - Negati ve POCT U PROT (test code = 3259) trace Negative - Negat pradeep POCT U GLU (test code = 3256) neg Negative - Negati ve POCT U KETONE (test code = 3258) . Negative - Neg ative POCT U UROBILI (test code = 3260) . 0.2-1 POCT U BILI (test code = 3261) . Negative - Negat pradeep POCT U BLD (test code = 3257) . Negative - Negati ve POCT U COLOR (test code = 3266) . POCT U APPEAR (test code = 3267) . [facility] URINALYSIS W SPECIFIC [id number] 13:14:00* Test Item Value Reference Range Interpretation Comme nts POCT U SP GRAV (test code = 3255) . 1.005-1.025 POCT PH U (test code = 3254) . 5-8 POCT U LEUK EST (test code = 3263) . Negative - N egative POCT U NIT (test code = 3262) . Negative - Negati ve POCT U PROT (test code = 3259) 1+ Negative - Negat pradeep POCT U GLU (test code = 3256) normal Negative - Negati ve POCT U KETONE (test code = 3258) . Negative - Neg ative POCT U UROBILI (test code = 3260) . 0.2-1 POCT U BILI (test code = 3261) . Negative - Negat pradeep POCT U BLD (test code = 3257) . Negative - Negati ve POCT U COLOR (test code = 3266) . POCT U APPEAR (test code = 3267) . [facility] URINALYSIS W SPECIFIC [id number] 15:49:00* Test Item Value Reference Range Interpretation Comme nts POCT U SP GRAV (test code = 3255) . 1.005-1.025 POCT PH U (test code = 3254) . 5-8 POCT U LEUK EST (test code = 3263) . Negative - N egative POCT U NIT (test code = 3262) . Negative - Negati ve POCT U PROT (test code = 3259) trace Negative - Negat pradeep POCT U GLU (test code = 3256) neg Negative - Negati ve POCT U KETONE (test code = 3258) . Negative - Neg ative POCT U UROBILI (test code = 3260) . 0.2-1 POCT U BILI (test code = 3261) . Negative - Negat pradeep POCT U BLD (test code = 3257) . Negative - Negati ve POCT U COLOR (test code = 3266) . POCT U APPEAR (test code = 3267) . [facility] URINALYSIS W SPECIFIC [id number] 15:49:00* Test Item Value Reference Range Interpretation Comme nts POCT U SP GRAV (test code = 3255) . 1.005-1.025 POCT PH U (test code = 3254) . 5-8 POCT U LEUK EST (test code = 3263) . Negative - N egative POCT U NIT (test code = 3262) . Negative - Negati ve POCT U PROT (test code = 3259) trace Negative - Negat pradeep POCT U GLU (test code = 3256) neg Negative - Negati ve POCT U KETONE (test code = 3258) . Negative - Neg ative POCT U UROBILI (test code = 3260) . 0.2-1 POCT U BILI (test code = 3261) . Negative - Negat pradeep POCT U BLD (test code = 3257) . Negative - Negati ve POCT U COLOR (test code = 3266) . POCT U APPEAR (test code = 3267) . [facility] URINALYSIS W SPECIFIC [id number] 16:40:00* Test Item Value Reference Range Interpretation Comme nts POCT U SP GRAV (test code = 3255) . 1.005-1.025 POCT PH U (test code = 3254) . 5-8 POCT U LEUK EST (test code = 3263) . Negative - N egative POCT U NIT (test code = 3262) . Negative - Negati ve POCT U PROT (test code = 3259) 1+ Negative - Negat pradeep POCT U GLU (test code = 3256) neg Negative - Negati ve POCT U KETONE (test code = 3258) . Negative - Neg ative POCT U UROBILI (test code = 3260) . 0.2-1 POCT U BILI (test code = 3261) . Negative - Negat pradeep POCT U BLD (test code = 3257) . Negative - Negati ve POCT U COLOR (test code = 3266) . POCT U APPEAR (test code = 3267) . [facility] URINALYSIS W SPECIFIC [id number] 14:13:00* Test Item Value Reference Range Interpretation Comme nts POCT U SP GRAV (test code = 3255) . 1.005-1.025 POCT PH U (test code = 3254) . 5-8 POCT U LEUK EST (test code = 3263) . Negative - N egative POCT U NIT (test code = 3262) . Negative - Negati ve POCT U PROT (test code = 3259) trace Negative - Negat pradeep POCT U GLU (test code = 3256) neg Negative - Negati ve POCT U KETONE (test code = 3258) . Negative - Neg ative POCT U UROBILI (test code = 3260) . 0.2-1 POCT U BILI (test code = 3261) . Negative - Negat pardeep POCT U BLD (test code = 3257) . Negative - Negati ve POCT U COLOR (test code = 3266) . POCT U APPEAR (test code = 3267) . [facility] URINALYSIS W SPECIFIC [id number] 14:13:00* Test Item Value Reference Range Interpretation Comme nts POCT U SP GRAV (test code = 3255) . 1.005-1.025 POCT PH U (test code = 3254) . 5-8 POCT U LEUK EST (test code = 3263) . Negative - N egative POCT U NIT (test code = 3262) . Negative - Negati ve POCT U PROT (test code = 3259) trace Negative - Negat pradeep POCT U GLU (test code = 3256) neg Negative - Negati ve POCT U KETONE (test code = 3258) . Negative - Neg ative POCT U UROBILI (test code = 3260) . 0.2-1 POCT U BILI (test code = 3261) . Negative - Negat pradeep POCT U BLD (test code = 3257) . Negative - Negati ve POCT U COLOR (test code = 3266) . POCT U APPEAR (test code = 3267) . [facility] URINALYSIS W SPECIFIC [id number] 14:40:00* Test Item Value Reference Range Interpretation Comme nts POCT U SP GRAV (test code = 3255) . 1.005-1.025 POCT PH U (test code = 3254) . 5-8 POCT U LEUK EST (test code = 3263) . Negative - N egative POCT U NIT (test code = 3262) . Negative - Negati ve POCT U PROT (test code = 3259) trace Negative - Negat pradeep POCT U GLU (test code = 3256) 100 Negative - Negati ve POCT U KETONE (test code = 3258) . Negative - Neg ative POCT U UROBILI (test code = 3260) . 0.2-1 POCT U BILI (test code = 3261) . Negative - Negat pradeep POCT U BLD (test code = 3257) . Negative - Negati ve POCT U COLOR (test code = 3266) . POCT U APPEAR (test code = 3267) . [facility] GLUCOSE (AUTOMATED)2023-10-14 05:19:09* Test Item Value Reference Range Interpretation Comme nts POCT GLU (test code = 1443521114) 86 mg/dL 70-110 Lab Interpretation (test cod e = 68872-4) Normal [facility] URINALYSIS W SPECIFIC [id number] 14:15:00* Test Item Value Reference Range Interpretation Comme nts POCT U SP GRAV (test code = 3255) . 1.005-1.025 POCT PH U (test code = 3254) . 5-8 POCT U LEUK EST (test code = 3263) . Negative - N egative POCT U NIT (test code = 3262) . Negative - Negati ve POCT U PROT (test code = 3259) trace Negative - Negat pradeep POCT U GLU (test code = 3256) neg Negative - Negati ve POCT U KETONE (test code = 3258) . Negative - Neg ative POCT U UROBILI (test code = 3260) . 0.2-1 POCT U BILI (test code = 3261) . Negative - Negat pradeep POCT U BLD (test code = 3257) . Negative - Negati ve POCT U COLOR (test code = 3266) . POCT U APPEAR (test code = 3267) . [facility] URINALYSIS W SPECIFIC [id number] 14:10:00* Test Item Value Reference Range Interpretation Comme nts POCT U SP GRAV (test code = 3255) . 1.005-1.025 POCT PH U (test code = 3254) . 5-8 POCT U LEUK EST (test code = 3263) . Negative - N egative POCT U NIT (test code = 3262) . Negative - Negati ve POCT U PROT (test code = 3259) trace Negative - Negat pradeep POCT U GLU (test code = 3256) neg Negative - Negati ve POCT U KETONE (test code = 3258) . Negative - Neg ative POCT U UROBILI (test code = 3260) . 0.2-1 POCT U BILI (test code = 3261) . Negative - Negat pradeep POCT U BLD (test code = 3257) . Negative - Negati ve POCT U COLOR (test code = 3266) . POCT U APPEAR (test code = 3267) . [facility] URINALYSIS W SPECIFIC [id number] 14:10:00* Test Item Value Reference Range Interpretation Comme nts POCT U SP GRAV (test code = 3255) . 1.005-1.025 POCT PH U (test code = 3254) . 5-8 POCT U LEUK EST (test code = 3263) . Negative - N egative POCT U NIT (test code = 3262) . Negative - Negati ve POCT U PROT (test code = 3259) trace Negative - Negat pradeep POCT U GLU (test code = 3256) neg Negative - Negati ve POCT U KETONE (test code = 3258) . Negative - Neg ative POCT U UROBILI (test code = 3260) . 0.2-1 POCT U BILI (test code = 3261) . Negative - Negat pradeep POCT U BLD (test code = 3257) . Negative - Negati ve POCT U COLOR (test code = 3266) . POCT U APPEAR (test code = 3267) . [facility] URINALYSIS W SPECIFIC [id number] 14:04:00* Test Item Value Reference Range Interpretation Comme nts POCT U SP GRAV (test code = 3255) . 1.005-1.025 POCT PH U (test code = 3254) 6 mg/dl 5-8 POCT U LEUK EST (test code = 3263) 1+ Negative - Negative POCT U NIT (test code = 3262) negative Negative - Negati ve POCT U PROT (test code = 3259) trace Negative - Negat pradeep POCT U GLU (test code = 3256) negative Negative - Negati ve POCT U KETONE (test code = 3258) negative Negative - Neg ative POCT U UROBILI (test code = 3260) . 0.2-1 POCT U BILI (test code = 3261) . Negative - Negat pradeep POCT U BLD (test code = 3257) 50 Negative - Negati ve POCT U COLOR (test code = 3266) POCT U APPEAR (test code = 3267) [facility] URINALYSIS W SPECIFIC [id number] 14:55:00* Test Item Value Reference Range Interpretation Comme nts POCT U SP GRAV (test code = 3255) . 1.005-1.025 POCT PH U (test code = 3254) . 5-8 POCT U LEUK EST (test code = 3263) . Negative - N egative POCT U NIT (test code = 3262) . Negative - Negati ve POCT U PROT (test code = 3259) trace Negative - Negat pradeep POCT U GLU (test code = 3256) neg Negative - Negati ve POCT U KETONE (test code = 3258) . Negative - Neg ative POCT U UROBILI (test code = 3260) . 0.2-1 POCT U BILI (test code = 3261) . Negative - Negat pradeep POCT U BLD (test code = 3257) . Negative - Negati ve POCT U COLOR (test code = 3266) . POCT U APPEAR (test code = 3267) . [facility] [id number] 13:31:00* Test Item Value Reference Range Interpretation Comme nts POCT PREG (test code = 1605) Positive On board controls acceptable with C Line (test code = 3574) Yes POCT PREG LOT # (test code = 3575) POCT PREG TEST DATE ( test code = 3576) [facility] URINALYSIS W/O SPECIFIC [id number] 13:31:00* Test Item Value Reference Range Interpretation Comme nts POCT PH U (test code = 3254) 7 mg/dl 5-8 POCT U LEUK EST (test code = 3263) 2+ Negative - Negative POCT U NIT (test code = 3262) negative Negative - Negati ve POCT U PROT (test code = 3259) trace Negative - Negat pradeep POCT U GLU (test code = 3256) negative Negative - Negati ve POCT U KETONE (test code = 3258) negative Negative - Neg ative POCT U BLD (test code = 3257) 250 Negative - Negati ve [facility] [id number] 13:31:00* Test Item Value Reference Range Interpretation Comme nts POCT PREG (test code = 1605) Positive On board controls acceptable with C Line (test code = 3574) Yes POCT PREG LOT # (test code = 3575) POCT PREG TEST DATE ( test code = 3576) [facility] URINALYSIS W/O SPECIFIC [id number] 13:31:00* Test Item Value Reference Range Interpretation Comme nts POCT PH U (test code = 3254) 7 mg/dl 5-8 POCT U LEUK EST (test code = 3263) 2+ Negative - Negative POCT U NIT (test code = 3262) negative Negative - Negati ve POCT U PROT (test code = 3259) trace Negative - Negat pradeep POCT U GLU (test code = 3256) negative Negative - Negati ve POCT U KETONE (test code = 3258) negative Negative - Neg ative POCT U BLD (test code = 3257) 250 Negative - Negati ve [facility] [id number] 13:31:00* Test Item Value Reference Range Interpretation Comme nts POCT PREG (test code = 1605) Positive On board controls acceptable with C Line (test code = 3574) Yes POCT PREG LOT # (test code = 3575) POCT PREG TEST DATE ( test code = 357) [facility] URINALYSIS W/O SPECIFIC [id number] 13:31:00* Test Item Value Reference Range Interpretation Comme nts POCT PH U (test code = 3254) 7 mg/dl 5-8 POCT U LEUK EST (test code = 3263) 2+ Negative - Negative POCT U NIT (test code = 3262) negative Negative - Negati ve POCT U PROT (test code = 3259) trace Negative - Negat pradeep POCT U GLU (test code = 3256) negative Negative - Negati ve POCT U KETONE (test code = 3258) negative Negative - Neg ative POCT U BLD (test code = 3257) 250 Negative - Negati ve [facility] [id number] 13:31:00* Test Item Value Reference Range Interpretation Comme nts POCT PREG (test code = 1605) Positive On board controls acceptable with C Line (test code = 3574) Yes POCT PREG LOT # (test code = 3575) POCT PREG TEST DATE ( test code = 3576) [facility] URINALYSIS W/O SPECIFIC [id number] 13:31:00* Test Item Value Reference Range Interpretation Comme nts POCT PH U (test code = 3254) 7 mg/dl 5-8 POCT U LEUK EST (test code = 3263) 2+ Negative - Negative POCT U NIT (test code = 3262) negative Negative - Negati ve POCT U PROT (test code = 3259) trace Negative - Negat pradeep POCT U GLU (test code = 3256) negative Negative - Negati ve POCT U KETONE (test code = 3258) negative Negative - Neg ative POCT U BLD (test code = 3257) 250 Negative - Negati ve [facility] [id number] 04:56:00* Test Item Value Reference Range Interpretation Comme nts POCT PREG (test code = 1605) Positive On board controls acceptable with C Line (test code = 3574) Yes POCT PREG LOT # (test code = 3575) [id number] POCT PREG TEST DATE ( test code = 3576) 11/16/2024 Lab Interpretation (test cod e = 23089-9) [facility] [id number] 06:01:00* Test Item Value Reference Range Interpretation Comme nts POCT PREG (test code = 1605) negative On board controls acceptable with C Line (test code = 3574) present POCT PREG LOT # (test code = 3575) [id number] POCT PREG TEST DATE ( test code = 3576) 2022-01-16 Lab Interpretation (test cod e = 70499-9) [facility] VW [id number] 01:17:00No acute bony abnormality. Becka Myers MD., have [...] COMPARISON: NoneFINDINGS:Radiographs of the left wrist demonstrate no acute fracture or dislocation.The joint spaces are maintained. No soft tissue abnormality is seen. IMPRESSIONNo acute bony abnormality.I, Santy Anguiano MD., have reviewed this study and agreewith theabove report.[facility] Notes Date/Time Note Provider Source 2024-02-29 10:08:50 Please advise patient she needs to seek her pcp/pysch for continued mgmt and refills of zoloft RICHARD Cantor 02/29/2024 10:09 AM [facility] 2023-11-18 22:39:06 Abd pain, pelvic pain, vaginal pressure that started around 1500 today, pt is , induction schedule 12/09/2023 STANT TO THE CEO Ariella Chiu RN [facility] 2023-10-13 22:18:46 Pt arrives ambulatory to ED reporting that while she was at work she began feeling strange, "fuzzy", she took her blood sugar and it had spiked up to over 200. She retook it and it had dropped to low 50's, so she says that she ate a few crackers. She says when she got home she took it again and it was 140. She is 30 weeks and diabetes & HTN run in her family so she does checks regularly. Also states she has not felt baby move as much as normal. No c/o contractions or abd pain. Report called to L&D charge phone Katya BERMAN STANT TO THE CEO Tatiana Jones RN [facility]
[2024-05-19] MEDS ORDERED: KETOROLAC 30 MG/ML INJ ONE (16:37)
--- NOTE | 2024-05-19 18:33 | RAD REPORT ---
EXAM DESCRIPTION: RAD - Knee Left 3 View - 05/19/2024 6:23 pm CLINICAL HISTORY: Left knee pain FINDINGS: No fracture or dislocation is seen. Mild medial joint space narrowing Small to moderate joint effusion. Edema within the subcutaneous tissues
--- NOTE | 2024-05-19 18:53 | ER ---
Nurse's Notes [facility] Name: Eros Jameson Age: 33 yrs Sex: Female : 1990 Arrival Date: 05/19/2024 Time: 16:05 Bed 10 Private MD: Diagnosis: Pain in left knee Presentation: 05/19 16:28 Chief complaint: Patient states: she has been having left knee pain for approx 4 days. ap3 patient rates her pain as a 9/10 on the pain scale at this time. Coronavirus screen: At this time, the client does not indicate any symptoms associated with coronavirus-19. Ebola Screen: No symptoms or risks identified at this time. Initial Sepsis Screen: Does the patient meet any 2 criteria? No. Patient's initial sepsis screen is negative. Does the patient have a suspected source of infection? No. Patient's initial sepsis screen is negative. Risk Assessment: Do you want to hurt yourself or someone else? Patient reports no desire to harm self or others. Onset of symptoms was May 15, 2024. 16:28 Method Of Arrival: Wheelchair ap3 16:28 Acuity: DANIELLE 4 ap3 Triage Assessment: 16:30 General: Appears in no apparent distress. Behavior is calm, cooperative, appropriate ap3 for age. Pain: Complains of pain in left knee Pain currently is 9 out of 10 on a pain scale. Pain began gradually. Neuro: Level of Consciousness is awake, alert, obeys commands, Oriented to person, place, time, situation, Appropriate for age. Cardiovascular: Patient's skin is warm and dry. Respiratory: Airway is patent Respiratory effort is even, unlabored, Respiratory pattern is regular, symmetrical. 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 - Infectious Disease History:: Denies. - Social history:: Smoking status: Patient reports use of chewing tobacco. Reported history of juuling and/or vaping. - Family history:: not pertinent. Screenin:31 [facility] ED Fall Risk Assessment (Adult) History of falling in the last 3 months, ap3 including since admission No falls in past 3 months (0 pts) Confusion or Disorientation No (0 pts) Intoxicated or Sedated No (0 pts) Impaired Gait Yes (1 pt) Mobility Assist Device Used No (0 pt) Altered Elimination No (0 pt) Score/Fall Risk Level 0 - 2 = Low Risk Oriented to surroundings, Maintained a safe environment, Educated pt \T\ family on fall prevention, incl call for assistance when getting out of bed, Assessed \T\ reinforced patient's understanding of fall precautions, Hourly rounding (assess needs \T\ fall precautionary measures) done, Used ambulatory aids as needed (educated on \T\ assisted with), Used gait belt as appropriate. Abuse screen: Denies threats or abuse. Nutritional screening: No deficits noted. Tuberculosis screening: No symptoms or risk factors identified. Assessment: 16:45 General: Appears in no apparent distress. Behavior is calm, cooperative. Pain: Pain hb currently is 9 out of 10 on a pain scale. Neuro: Level of Consciousness is awake, alert, obeys commands, Oriented to person, place, time, situation. Cardiovascular: Patient's skin is warm and dry. Respiratory: Respiratory effort is even, unlabored, Respiratory pattern is regular, symmetrical. GI: No signs and/or symptoms were reported involving the gastrointestinal system. : No signs and/or symptoms were reported regarding the genitourinary system. EENT: No signs and/or symptoms were reported regarding the EENT system. Derm: Skin is pink, warm \T\ dry. Musculoskeletal: Reports left knee pain. Vital Signs: 16:28 Pulse 93; Resp 17; Temp 97.4; Pulse Ox 100% ; Weight 161.03 kg; Height 5 ft. 7 in. ; ap3 Pain 9/10; 16:28 BP 147 / 90; ap3 16:28 Body Mass Index 55.60 (161.03 kg, 170.18 cm) ap3 16:28 Pain Scale: Adult ap3 ED Course: 16:08 Patient arrived in ED. im 16:12 Virgilio Garcia MD is Attending Physician. rt 16:30 Triage completed. ap3 16:31 Arm band placed on right wrist. ap3 16:46 Patient has correct armband on for positive identification. Provided Education on: hb medications, use of call light . 18:25 Knee Left 3 View XRAY In Process Unspecified. EDMS 18:59 No provider procedures requiring assistance completed. Patient did not have IV access ap3 during this emergency room visit. Administered Medications: 16:44 Drug: Ketorolac IM 30 mg IM once Route: IM; Site: right deltoid; hb 19:00 Follow up: Response: No adverse reaction ap3 Medication: 16:45 VIS not applicable for this client. hb Outcome: 18:52 Discharge ordered by . rt 18:59 Discharged to home ambulatory, ap3 18:59 Condition: good 18:59 Discharge instructions given to patient, Instructed on discharge instructions, follow up and referral plans. Demonstrated understanding of instructions, follow-up care, 19:01 Patient left the ED. ap3 Signatures: Dispatcher [employer] EDMS Anjali Greer RN RN hb Prokisch, Amanda, RN RN ap3 Virgilio Garcia MD MD rt Sushma Kinney im
--- NOTE | 2024-05-19 18:53 | EDPHYS ---
Physician Documentation [facility] Name: Eros Jameson Age: 33 yrs Sex: Female : 1990 Arrival Date: 05/19/2024 Time: 16:05 Bed 10 Private MD: ED Physician Virgilio Garcia HPI: 05/19 17:01 This 33 yrs old Black Female presents to ER via Wheelchair with complaints of Knee Pain.rt 17:01 Patient presents to the ED with about 4 days of atraumatic left knee pain. Denies rt overlying skin changes. Has not take anything for the pain. Denies other acute complaints at this time, symptoms are mild in severity, aching nature, nonradiating, no other aggravating or alleviating factors.. 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 - Infectious Disease History:: Denies. - Social history:: Smoking status: Patient reports use of chewing tobacco. Reported history of juuling and/or vaping. - Family history:: not pertinent. ROS: 17:01 Constitutional: Negative for fever, chills, and weight loss, Skin: Negative for injury, rt rash, and discoloration, Neuro: Negative for headache, weakness, numbness, tingling, and seizure, 17:01 MS/extremity: Positive for pain, Negative for swelling, Exam: 17:01 Constitutional: This is a well developed, well nourished patient who is awake, alert, rt and in no acute distress. Head/Face: Normocephalic, atraumatic. Skin: Warm, dry with normal turgor. Normal color with no rashes, no lesions, and no evidence of cellulitis. Neuro: Awake and alert, GCS 15, oriented to person, place, time, and situation. Cranial nerves II-XII grossly intact. Motor strength 5/5 in all extremities. Sensory grossly intact. Cerebellar exam normal. Normal gait. Psych: Awake, alert, with orientation to person, place and time. Behavior, mood, and affect are within normal limits. 17:01 Musculoskeletal/extremity: Mild tenderness overlying the patella, no appreciable swelling, no skin changes. Pulses, motor, sensation intact. Vital Signs: 16:28 Pulse 93; Resp 17; Temp 97.4; Pulse Ox 100% ; Weight 161.03 kg; Height 5 ft. 7 in. ; ap3 Pain 9/10; 16:28 BP 147 / 90; ap3 16:28 Body Mass Index 55.60 (161.03 kg, 170.18 cm) ap3 16:28 Pain Scale: Adult ap3 MDM: 16:33 Patient medically screened. rt 19:38 Differential Diagnosis Fracture, arthritis, effusion. Data reviewed: vital signs, rt nurses notes, radiologic studies. I considered the following discharge prescriptions or medication management in the emergency department Medications were administered in the Emergency Department. See MAR. Independent interpretation of the following test(s) in the Emergency Department X-Ray: My interpretation is No fracture seen on interpretation of x-ray images. Test considered but Not performed: Labs: Skin normal, patient is afebrile, low suspicion for septic arthritis, arthrocentesis is not indicated. Care significantly affected by the following chronic conditions: Diabetes, Hypertension. Counseling: I had a detailed discussion with the patient and/or guardian regarding the historical points, exam findings, and any diagnostic results supporting the discharge/admit diagnosis, radiology results, the need for outpatient follow up. Response to treatment: the patient's symptoms have markedly improved after treatment. 05/19 16:37 Order name: Knee Left 3 View XRAY; Complete Time: 18:37 rt Administered Medications: 16:44 Drug: Ketorolac IM 30 mg IM once Route: IM; Site: right deltoid; hb 19:00 Follow up: Response: No adverse reaction ap3 Disposition Summary: 05/19/24 18:52 Discharge Ordered Notes: Location: Home rt Problem: new rt Symptoms: have improved rt Condition: Stable rt Diagnosis - Pain in left knee rt Followup: rt - With: Private Physician - When: 2 - 3 days - Reason: Discharge Instructions: - Discharge Summary Sheet rt - Acute Knee Pain, Adult, [id number] rt Forms: - Medication Reconciliation Form rt - Antibiotic Education rt - Prescription Opioid Use rt - Patient Portal Instructions rt - Leadership Thank You Letter rt Signatures: Dispatcher [facility] Anjali Rosales RN RN hb Tatiana Malone RN RN ap3 Virgilio Garcia MD MD rt Corrections: (The following items were deleted from the chart) 16:37 16:37 Knee Left 3 View+RAD.RAD.BRZ ordered. EDMS EDMS
[2024-05-19 19:22] VITALS: BP 147/90; TEMP 97.4; O2SAT 100
== END 2024-05-19 19:01 | disposition home or self-care (01) ==
LOC: ER 16:05
DX: M25.562 Pain in left knee (principal); F17.220 Nicotine dependence, chewing tobacco, uncomplicated
CPT/HCPCS: 96372; 99284

== ENCOUNTER 2024-12-05 14:34 | Emergency (ER) | payer OTHER ==
--- OUTSIDE RECORDS SUMMARY | 2024-12-05 14:42 | XMS REPORT | Continuity of Care Document ---
Author Name Unknown Address [address] [facility] [address] [place] [address] Organization [facility] [place] Address [address] [facility] [address] [place] [address] Care Team Providers Care Hammerer Helper Name Role Phone PCP, PATIENT DOES NOT HAVE A Primary Care Physic dez Unavailable SHANELL ALLRED Attending Clinician Unavailable GENESIS HANSEN Attending Clinician Unavailable REBECCA MACK Attending Clinician Unavailable Rebecca Aparicio Attending Clinician [phone] Tracy Mills Attending Clinician [phone] TRACY DOMINGUEZ Attending Clinician UnavailTRACY Allen Attending Clinician UnavailAYAH Johnson Attending Clinician Unavailable AYAH VELAZCO Attending Clinician Unavailable Ayah Velazco MD Attending Clinician [phone] UMESH TRIPP Attending Clinician Unavailable UMESH TRIPP Attending Clinician Unavailable Umesh Ozuna Attending Clinician [phone] GEOFF CORNELIUS Attending Clinician Unavail able Ashli WHCNPGeoff Attending Clinician + Doctor Unassigned, [place] Attending Clinician U navailable ELEHEATHER NELSON Attending Clinician Unavailable ELE, HEATHER Attending Clinician Unavailable ASHANTI GREWAL Attending Clinician Unavailable YARITZA, LESLY Attending Clinician LESLY Hanna Attending Clinician ANNABELLA Oakley Attending Clinician Unav ailable Ultrasound, Ang-[facility] Attending Clinician Unavailtamia Akbar MD, Annabella Attending Clinician + Lab, Raf-Rmchp Attending Clinician Unavailable SEBASTIEN LEE Attending Clinician UnavailSEBASTIEN Velázquez Attending Clinician UnavailSebastien Velázquez MD Attending Clinician [phone] BECCA CALLOWAY Attending Clinician Unavailable 2, [facility] Attending Clinician Unavailab Becca Gonzalez MD Attending Clinician [phone] JACKIE MENDOZA Attending Clinician Unavailtamia herrera Pcp, Patient Does Not Have A Attending Clinician NAOMY VAUGHAN Attending Clinician UnavailNaomy Galvez MD Attending Clinician + ZANE PEÑA Attending Clinician Unavailable Zane Katz Attending Clinician + Jackie Mendoza CNM Attending Clinician [phone] LUCIANO SILVA Attending Clinician Unavailable Luciano Nagy Attending Clinician + ANAT JONES Attending Clinician Unavailab Anat Mark DO Attending Clinician + Lavon Nieves MD Attending Clinician + LAVON NIEVES Attending Clinician Unavailable Lenin Shea DO Attending Clinician [phone] Theresa Alcantara DO Attending Clinician + Christopher Flores DO Attending Clinician + Airam Guzmán Attending Clinician Juan Jack Attending Clinician JUAN JONES Attending Clinician UnavailMarta Mark Attending Clinician [phone] LESLY CLEMENTS Admitting Clinician AYAH Conti Admitting Clinician Unavailable UMESH TRIPP Admitting Clinician Unavailable HEATHER MARLOW Admitting Clinician Unavailable NAOMY VAUGHAN Admitting Clinician UnavailZANE Hollis Admitting Clinician Unavailable LAVON NIEVES Admitting Clinician Unavailable Payers Payer Name Policy Type Policy Number Effective Date Expirati on Date Source [id number] 2023 00:00:00 [facility] [id number] [facility]24 [facility]00[id number] 2023 00:00:00 2023 00:00:00 MEDICAID PENDING PENDING 1998 00:00:00 1998 00:00:00 Problems Condition Name Condition Details Condition Category Status Onset Date Resolution Date Last Treatment Date Treating Clinician Comments Source Other general counseling and advice for contracept pradeep management Other general counseling and advice for contracept pradeep management Disease Active -06 00:00: 00 [facility] depression depression Disease Active 12-29 00:00: 00 [facility] Essential hypertensi on Essential hypertensi on Disease Active 2022-09 00:00: 00 [facility] Chronic hypertensi on affecting Chronic hypertensi on affecting Disease Active 2022-09 00:00: 00 [facility] History of depression History of depression Disease Active 2022-09 00:00: 00 [facility] Obesity affecting Obesity affecting Disease Active 2022-09 00:00: 00 [facility] Declines flu vaccine Declines flu vaccine Disease Active 2022-09 00:00: 00 [facility] Morbid obesity Morbid obesity Disease Active 2014-09- 00:00: 00 [facility] care and examinatio n of lactating mother care and examinatio n of lactating mother Disease Resolve d 2023-0 4-12 00:00: 00 2024-01-23 00:00:00 2024-01-23 08:45:35 [facility] Tubal ligation status Tubal ligation status Disease Resolve d 2023-0 3-23 00:00: 00 2024-01-23 00:00:00 2024-01-23 08:45:32 [facility] (spontaneo us vaginal delivery) (spontaneo us vaginal delivery) Disease Resolve d 2023-0 3-23 00:00: 00 2023-12-30 00:00:00 2023-12-30 08:25:34 [facility] Single live Single live Disease Resolve d 2023-0 3-23 00:00: 00 2023-12-30 00:00:00 2023-12-30 08:25:33 [facility] 39 weeks gestation of 39 weeks gestation of Disease Resolve d 2023-0 3-22 00:00: 00 2023-12-30 00:00:00 2023-12-30 08:25:21 [facility] Genetic screening Genetic screening Disease Resolve d 2022-09 2-15 00:00: 00 2023-12-30 00:00:00 2023-12-30 08:25:29 Overview: Formattin g of this note might be different from the original. Nipt- low risk female [facility] Urinary tract infection in mother during second trimester of Urinary tract infection in mother during second trimester of Disease Resolve d 2022-09 2-07 00:00: 00 2023-12-30 00:00:00 2023-12-30 08:25:40 Overview: Formattin g of this note might be different from the original. Huma neg [facility] Unspecifie d chronic bronchitis Unspecifie d chronic bronchitis Disease Resolve d 2022-09 2-07 00:00: 00 2023-12-30 00:00:00 2023-12-30 08:25:37 [facility] Abnormal maternal glucose tolerance, antepartum Abnormal maternal glucose tolerance, antepartum Disease Resolve d 2022-09 00:00: 00 2023-12-30 00:00:00 2023-12-30 08:25:23 Overview: Formattin g of this note might be different from the original. Passed 3hr [facility] AMA (advanced maternal age) multigravi da 35+ AMA (advanced maternal age) multigravi da 35+ Disease Resolve d 2022-09- 00:00: 00 2023-12-30 00:00:00 2023-12-30 08:25:25 [facility] Obesity in Obesity in Disease Resolve d 2022-09 00:00: 00 2023-12-30 00:00:00 2023-12-30 08:25:32 [facility] Tobacco smoking affecting Tobacco smoking affecting Disease Resolve d 2022-09 00:00: 00 2023-06-29 00:00:00 2023-06-29 12:12:25 [facility] BMI 50.0-59.9, adult BMI 50.0-59.9, adult Disease Resolve d 2016-09 00:00: 00 2023-06-29 00:00:00 2023-06-29 08:34:14 [facility] Elevated blood pressure reading without diagnosis of hypertensi on Elevated blood pressure reading without diagnosis of hypertensi on Disease Resolve d 2016-09 00:00: 00 2023-06-29 00:00:00 2023-06-29 08:34:15 [facility] Depression , unspecifie d depression type Depression , unspecifie d depression type Disease Resolve d 2015-09 00:00: 00 2023-06-29 00:00:00 2023-06-29 08:34:38 [facility] Screening examinatio n for STD (sexually transmitte d disease) Screening examinatio n for STD (sexually transmitte d disease) Disease Resolve d 2014-09 00:00: 00 2023-06-29 00:00:00 2023-06-29 08:34:08 [facility] UTI (urinary tract infection) UTI (urinary tract infection) Disease Resolve d 2015-09 2-05 00:00: 00 2020-05-01 00:00:00 2020-05-01 08:07:15 [facility] Encounter for other general counseling or advice on contracept ion Encounter for other general counseling or advice on contracept ion Disease Resolve d 2015-09 00:00: 00 2020-05-01 00:00:00 2020-05-01 08:07:20 [facility] Recurrent acute serous otitis media of left ear Recurrent acute serous otitis media of left ear Disease Resolve d 2014-09 00:00: 00 2017-07-26 00:00:00 2017-07-26 13:45:50 [facility] Allergies, Adverse Reactions, Alerts Allergy Name Allergy Type Status Severity Reaction(s) Onset Date Inactive Date Treating Clinician Comments Source NO KNOWN ALLERGIE S Drug Class Active [facility] Social History Social Habit Start Date Stop Date Quantity Comments Source ASSERTION 2023-03-25 00:00:00 [facility] History SDOH Alcohol Frequency [facility] History SDOH Alcohol Std Drinks [facility] History SDOH Alcohol Binge [facility] Exposure to SARS-CoV-2 (event) Not sure [facility] Alcoholic beverage intake 2024-11-20 00:00:00 2024-11-20 00:00:00 .29 /d [facility] Tobacco Comment 2024-01-23 00:00:00 2024-01-23 00:00:00 Daily vaping [facility] History of Social function 2024-01-23 00:00:00 2024-01-23 00:00:00 [facility] Tobacco use and exposure 2024-01-23 00:00:00 2024-01-23 00:00:00 User of smokeless tobacco [facility] Alcohol intake 2023-12-30 00:00:00 2023-12-30 00:00:00 Ex-drinker (finding) [facility] History of tobacco use 2005-07-26 00:00:00 2022-09-19 00:00:00 Cigarette Smoker [facility] Alcohol Comment 2015-08-07 00:00:00 2015-08-07 00:00:00 socially [facility] Sex assigned at 1990 00:00:00 1990 00:00:00 [facility] Smoking Status Start Date Stop Date Source Ex-smoker 2024-01-23 00:00:00 2024-01-23 00:00[facility]00 [facility] Sm[facility] tobacco daily 2020-05-01 00:00:00 [facility] Medications Ordered Medication Name Filled Medication Name Start Date Stop Date Current Medication? Ordering Clinician Indication Dosage Frequency Signature (SIG) Comments Components Source perflutren lipid microsphere s (DEFINITY) injection 2 mL 11-20 21:15: 00 11-20 21:00 :00 No [id number] 2mL 2 mL, IV Push, ONCE, 1 dose, On Tue11/20/24 at 1515, Routine [facility] naproxen 500 mg tablet 11-14 00:00: 00 11-25 05:59 :00 Yes [id number] 500mg Take 1 tablet by mouth in the morning and 1 tablet in the evening. Take with meals. Do all this for 10 days. [facility] HYDROcodone -acetaminop hen 7.5-325 mg per tablet 11-14 00:00: 00 11-22 05:59 :00 Yes [id number] 1{tbl} Take 1 tablet by mouth every 6 (six) hours as needed for Pain for up to 7 days. Indication s: acute pain [facility] maalox/diph enhydrAMINE :lidocaine2 %viscous 1:1:1: suspension (COMPOUNDED ) 10-25 00:00: 00 10-25 00:05 :00 No 15mL 15 mL, Oral, ONCE, 1 dose, On Tue10/24/24 at 1800, JOSE [facility] aspirin chewable tablet 324 mg 10-25 00:00: 00 10-25 00:05 :00 No 324mg 324 mg, Oral, ONCE, 1 dose, On Tue10/24/24 at 1800, STAT [facility] amLODIPine 2.5 mg tablet 205 00:00: 00 Yes [id number] 2.5mg Take 1 tablet by mouth at bedtime. [facility] SERTraline (ZOLOFT) 50 mg tablet 8-19 00:00: 00 Yes [id number] 50mg Take 1 tablet by mouth in the morning. [facility] SERTraline (ZOLOFT) 50 mg tablet 12 00:00: 00 Yes [id number] 50mg Take 1 tablet by mouth in the morning. [facility] levonorgest reL (MIRENA) IUD 1 Device 02-27 16:30: 00 02-27 15:39 :00 No [id number] 1{devic e} [facility] aspirin 81 mg Cap 01-22 08:46: 47 Yes Take by mouth. [facility] SERTraline (ZOLOFT) 50 mg tablet 12 00:00: 00 02-27 00:00 :00 No [id number] 50mg Take 1 tablet by mouth in the morning. [facility] docusate 100 mg capsule 12-10 00:00: 00 Yes [id number] 200mg Take 2 capsules by mouth once daily as needed for Constipati on. [facility] ibuprofen 600 mg tablet 12-10 00:00: 00 Yes [id number] 600mg Take 1 tablet by mouth every 6 (six) hours as needed (Pain). Take with food or milk. [facility] ferrous sulfate 325 mg (65 mg iron) tablet 12-10 00:00: 00 Yes [id number] 325mg Take 1 tablet by mouth in the morning. [facility] vitamin w/FA tablet 12-10 00:00: 00 Yes [id number] 1{tbl} Take 1 tablet by mouth in the morning. [facility] albuterol 90 mcg/actuati on inhaler 2022-09 2- 00:00: 00 Yes [id number] 2{puff} Inhale 2 Puffs every 6 (six) hours as needed for Wheezing, Shortness of Breath or Bronchospa sm. [facility] cefdinir (OMNICEF) capsule 300 mg 2022-09 06:00: 00 08-10 06:18 :00 No 300mg 300 mg, Oral, ONCE, 1 dose, On Tue08/10/23 at 0000, JOSE
Re ason for Anti-Infec tive: Documented Infection< br>Documen roxi Infection Site: Urine
D uration of Therapy: 7 days [facility] ondansetron 4 mg tablet 2022-09 00:00: 00 Yes [id number] 1 or 2 tablets every 8 hours as needed for nausea [facility] cefdinir 300 mg capsule 2022-09 00:00: 00 08-17 05:59 :00 No [id number] 300mg Take 1 capsule by mouth every 12 (twelve) hours for 7 days. [facility] Nitrofurant oin&Nit. Macrocryst (MACROBID) 100 mg capsule 2022-09 1 00:00: 00 08-05 05:59 :00 No [id number] 100mg Take 1 capsule by mouth in the morning and 1 capsule in the evening. Do all this for 10 days. [facility] Nitrofurant oin&Nit. Macrocryst (MACROBID) 100 mg capsule 2022-09 0-16 00:00: 00 07-15 04:59 :00 No [id number] 100mg Take 1 capsule by mouth in the morning and 1 capsule in the evening. Do all this for 10 days. [facility] HYDROcodone -acetaminop hen (NORCO 5) 5-325 mg tablet 1 tablet 06-12 05:15: 00 06-12 05:00 :00 No 1{tbl} 1 tablet, Oral, ONCE, 1 dose, On Tue06/12/23 at 0015, JOSE [facility] amoxicillin -clavulanat e (AUGMENTIN) 875-125 mg per tablet 1 tablet 06-12 05:15: 00 06-12 05:00 :00 No 1{tbl} 1 tablet, Oral, ONCE, 1 dose, On Tue06/12/23 at 0015, JOSE
Re ason for Anti-Infec tive: Documented Infection< br>Documen roxi Infection Site: HEENT
D uration of Therapy: Other (see Comments) [facility] HYDROcodone -acetaminop hen (NORCO) 10-325 mg tablet 06-12 00:00: 00 06-20 04:59 :00 No [id number] .5{tbl} Take 0.5-1 tablets by mouth every 6 (six) hours as needed for Pain (scale 7-10) for up to 7 days. Indication s: acute pain [facility] amoxicillin -clavulanat e 875-125 mg per tablet 06-12 00:00: 00 06-20 04:59 :00 No [id number] 1{tbl} Take 1 tablet by mouth in the morning and 1 tablet in the evening. Do all this for 7 days. [facility] dexamethaso ne (DECADRON PHOSPHATE) injection 10 mg 2020-09 14:15: 00 09-02 13:27 :00 No 10mg 10 mg, Oral, ONCE, 1 dose, On Tue09/02/21 at 0815, STAT [facility] acetaminoph en (TYLENOL) tablet 1,000 mg 2020-09 13:00: 00 09-02 13:00 :00 No 1000mg 1,000 mg, Oral, ONCE, 1 dose, On Tue09/02/21 at 0700, JOSE [facility] albuterol 90 mcg/actuati on inhaler 2020-09-14 00:00: 00 06-29 00:00 :00 No [id number] 2{puff} Inhale 2 Puffs every 4 (four) hours as needed for Wheezing or Shortness of Breath. [facility] amLODIPine (NORVASC) 5 mg tablet 2020-09-14 00:00: 00 10-02 05:59 :00 No [id number] 5mg Take 1 tablet by mouth daily for 30 days. [facility] ketorolac (TORADOL) injection 60 mg 02-09 13:00: 00 02-09 11:59 :00 No 60mg 60 mg, Intramuscu lar, ONCE, 1 dose, 02/09/21 at 0800, JOSE
Fa culty member approving Restricted medication : LAVON NIEVES [facility] acetaminoph en (TYLENOL) tablet 650 mg 02-09 12:30: 00 02-09 11:30 :00 No 650mg 650 mg, Oral, ONCE, 1 dose, 02/09/21 at 0730, JOSE [facility] cephALEXin (KEFLEX) 500 mg capsule 02-09 00:00: 00 06-29 00:00 :00 No [id number] 500mg Take 1 capsule by mouth 3 (three) times daily. [facility] amLODIPine 5 mg tablet 02-09 00:00: 00 09-01 00:00 :00 No [id number] 5mg Take 1 tablet by mouth at bedtime. [facility] traMADoL (ULTRAM) 50 mg tablet 02-09 00:00: 00 09-01 00:00 :00 No [id number] 50mg Take 1 tablet by mouth every 6 (six) hours as needed for Pain (scale 7-10). Indication s: acute pain [facility] ketorolac (TORADOL) injection 15 mg 10-09 14:00: 00 10-09 13:38 :00 No 15mg 15 mg, Intramuscu lar, ONCE, 1 dose, [facility] 10/09/20 at 0800, JOSE
Fa culty member approving Restricted medication : THERESA ALCANTARA [facility] proMETHazin e (PHENERGAN) 25 mg in NaCl 0.9% (NS) 50 mL piggyback 10-09 14:00: 00 10-09 13:39 :00 No 25mg 25 mg, IV Piggyback, ONCE, 1 dose, [facility] 10/09/20 at 0800, 50 mL [facility] acetaminoph en (TYLENOL) tablet 1,000 mg 2019-09 07:45: 00 08-14 06:39 :00 No 1000mg 1,000 mg, Oral, ONCE, 1 dose, [facility] 08/14/20 at 0145, JOSE [facility] dexamethaso ne (DECADRON PHOSPHATE) injection 10 mg 2019-09 07:00: 00 08-14 06:07 :00 No 10mg 10 mg, Intramuscu lar, ONCE, 1 dose, [facility] 08/14/20 at 0100, STAT [facility] ketorolac (TORADOL) injection 60 mg 2019-09 07:00: 00 08-14 06:08 :00 No 60mg 60 mg, Intramuscu lar, ONCE, 1 dose, [facility] 08/14/20 at 0100, JOSE
Fa culty member approving Restricted medication : AIRAM JON [facility] ibuprofen 800 mg tablet 2019-09 00:00: 00 06-29 00:00 :00 No [id number] 800mg Take 1 tablet by mouth every 6 (six) hours as needed for Pain (scale 4-6). [facility] cyclobenzap rine 10 mg tablet 2019-09 00:00: 00 02-09 00:00 :00 No [id number] 10mg Take 1 tablet by mouth 3 (three) times daily as needed for Muscle Spasms. [facility] metroNIDAZO LE (FLAGYL) 500 mg tablet 05-05 00:00: 00 05-06 04:59 :00 No [id number] 2000mg Take 4 tablets by mouth once now for 1 dose. [facility] diclofenac 75 mg EC tablet 03-12 00:00: 00 06-29 00:00 :00 No TAKE 1 TABLET BY MOUTH TWICE DAILY NEEDED [facility] ketorolac (TORADOL) injection 60 mg 04-25 03:15: 00 04-25 03:15 :00 No 60mg 60 mg, Intramuscu lar, ONCE, 1 dose, Tue04/24/19 at 2215, JOSE
Fa [facility] member approving Restricted medication : Marta BLANCA [facility] ibuprofen 600 mg tablet 04-24 00:00: 06-29 00:00 :00 No [id number] 600mg Take 1 tablet by mouth every 6 (six) hours as needed for Pain (scale 4-6). [facility] methocarbam ol 750 mg tablet 02-11 00:00: 00 06-29 00:00 :00 No [id number] 750mg Take 1 tablet by mouth 4 (four) times daily. [facility] benzonatate 200 mg capsule 12-06 00:00: 06-29 00:00 :00 No [id number] 200mg Take 1 capsule by mouth 3 (three) times daily as needed for Cough. [facility] albuterol 90 mcg/actuati on inhaler 12-06 00:00: 00 09-01 00:00 :00 No [id number] 2{puff} Inhale 2 Puffs every 4 (four) hours as needed for Wheezing, Shortness of Breath, Bronchospa sm or Chest tightness. [facility] levoFLOXaci n (LEVAQUIN) 500 mg tablet 12-06 00:00: 00 05-01 00:00 :00 No [id number] 500mg Take 1 tablet by mouth every 24 (twenty-fo ur) hours. [facility] ibuprofen 800 mg tablet 12-06 00:00: 00 04-24 00:00 :00 No [id number] 800mg Take 1 tablet by mouth every 8 (eight) hours as needed for Pain (scale 4-6). [facility] traMADOL 50 mg tablet 10-30 00:00: 00 09-01 00:00 :00 No [id number] 50mg Take 1 tablet by mouth every 6 (six) hours as needed for Pain (scale 4-6). [facility] ibuprofen 800 mg tablet 10-30 00:00: 00 04-24 00:00 :00 No [id number] 800mg Take 1 tablet by mouth every 8 (eight) hours. [facility] albuterol 90 mcg/actuati on inhaler 11-01 00:00: 00 05-01 00:00 :00 No 2{puff} Inhale 2 Puffs every 4 (four) hours as needed for Wheezing or Shortness of Breath. [facility] benzonatate 100 mg capsule 11-01 00:00: 00 05-01 00:00 :00 No 100mg Take 1 capsule by mouth 3 (three) times daily as needed for Cough. [facility] traMADOL 50 mg tablet 11-01 00:00: 05-01 00:00 :00 No 50mg Take 1 tablet by mouth every 6 (six) hours as needed for Pain (scale 4-6). [facility] ibuprofen 600 mg tablet 2016-09 0- 00:00: 00 04-24 00:00 :00 No 600mg Take 1 tablet by mouth every 6 (six) hours as needed for Pain (scale 4-6). [facility] Immunizations Ordered Immunization Name Filled Immunization Name Date Status Comments Source TD 2024-02-28 09:45:00 Completed [facility] TDAP 2024-02-28 00:00:00 Completed [facility] TDAP 2024-02-28 00:00:00 Completed [facility] TDAP 2024-02-14 10:30:00 Completed [facility] TDAP 2024-01-23 08:45:00 Completed [facility] TDAP 2024-01-03 00:00:00 Completed [facility] TDAP 2024-01-03 00:00:00 Completed [facility] TDAP 2023-12-30 07:45:00 Completed [facility] TDAP 2023-12-07 09:00:00 Completed [facility] TDAP 2023-11-30 08:00:00 Completed [facility] TDAP 2023-11-23 09:45:00 Completed [facility] TDAP 2023-11-18 22:41:00 Completed [facility] TDAP 2023-11-16 10:45:00 Completed [facility] TDAP 2023-11-02 08:00:00 Completed [facility] TDAP 2023-10-25 00:00:00 Completed [facility] TDAP 2023-10-21 00:00:00 Completed [facility] TDAP 2023-10-19 08:45:00 Completed [facility] TDAP 2023-10-19 08:00:00 Completed [facility] TDAP 2023-10-13 22:31:00 Completed [facility] TDAP 2023-09-28 00:00:00 Completed [facility] TDAP 2023-09-27 07:45:00 Completed [facility] TDAP 2023-09-27 00:00:00 Completed [facility] TDAP 2023-09-21 09:45:00 Completed [facility] TDAP 2023-09-21 08:00:00 Completed [facility] TDAP 2023-09-15 08:00:00 Completed [facility] TDAP 2023-09-15 00:00:00 Completed [facility] TDAP 2023-09-01 09:00:00 Completed [facility] TDAP 2023-08-25 07:45:00 Completed [facility] TDAP 2023-08-25 00:00:00 Completed [facility] TDAP 2023-08-24 09:00:00 Completed [facility] TDAP 2023-08-24 00:00:00 Completed [facility] TDAP 2023-08-19 00:00:00 Completed [facility] TDAP 2023-08-19 00:00:00 [facility] [facility] TDAP 2023-08-19 00:00:00 Completed [facility] TDAP 2023-08-19 00:00:00 Completed [facility] TDAP 2023-08-09 21:13:00 Completed [facility] TDAP 2023-08-08 00:00:00 Completed [facility] TDAP 2023-07-25 09:00:00 Completed [facility] TDAP 2023-07-18 00:00:00 Completed [facility] TDAP 2023-07-17 23:12:00 Completed [facility] TDAP 2023-07-12 07:45:00 Completed [facility] TDAP 2023-07-11 00:00:00 Completed [facility] TDAP 2023-07-04 08:00:00 Completed [facility] TDAP 2023-07-04 00:00:00 Completed [facility] TDAP 2023-06-30 00:00:00 Completed [facility] TDAP 2023-06-30 00:00:00 Completed [facility] TDAP 2023-06-29 08:15:00 Completed [facility] TDAP 2023-06-29 00:00:00 Completed [facility] TDAP 2023-06-11 23:45:00 Completed [facility] TDAP 2012-02-18 00:00:00 Completed [facility] TDAP 2012-02-18 00:00:00 Completed [facility] TDAP 2012-02-18 00:00:00 Completed [facility] TDAP 2012-02-18 00:00:00 Completed [facility] TDAP 2012-02-18 00:00:00 Completed [facility] TDAP 2012-02-18 00:00:00 Completed [facility] TDAP 2012-02-18 00:00:00 Completed [facility] TDAP 2012-02-18 00:00:00 Completed [facility] TDAP 2012-02-18 00:00:00 Completed [facility] TDAP 2012-02-18 00:00:00 Completed [facility] Tdap 2012-02-18 00:00:00 Completed [facility] TDAP 2012-02-18 00:00:00 Completed [facility] Vital Signs Vital Name Observation Time Observation Value Comments S ource Systolic blood pressure 2024-11-20 20:33:00 144 mm[Hg] [facility] Diastolic blood pressure 2024-11-20 20:33:00 85 mm[Hg] [facility] Respiratory rate 2024-11-20 20:33:00 16 /min [facility] Body height 2024-11-20 20:33:00 170.2 cm [facility] Body weight 2024-11-20 20:33:00 156.491 kg [facility] BMI 2024-11-20 20:33:00 54.03 kg/m2 [facility] Systolic blood pressure 2024-11-20 21:31:00 161 mm[Hg] [facility] Diastolic blood pressure 2024-11-20 21:31:00 93 mm[Hg] [facility] Heart rate 2024-11-20 21:31:00 88 /min [facility] Respiratory rate 2024-11-20 21:31:00 17 /min [facility] Body height 2024-11-20 21:31:00 170.2 cm [facility] Body weight 2024-11-20 21:31:00 156.491 kg [facility] BMI 2024-11-20 21:31:00 54.03 kg/m2 [facility] Oxygen saturation in Arterial blood by Pulse oximetry 2024-11-20 21:31:00 97 /min [facility] Systolic blood pressure 2024-11-14 14:25:12 145 mm[Hg] [facility] Diastolic blood pressure 2024-11-14 14:25:12 91 mm[Hg] [facility] Heart rate 2024-11-14 14:25:12 70 /min [facility] Body temperature 2024-11-14 14:25:12 37.11 Jeanne [facility] Respiratory rate 2024-11-14 14:25:12 16 /min [facility] Oxygen saturation in Arterial blood by Pulse oximetry 2024-11-14 14:25:12 98 /min [facility] Body height 2024-11-14 12:51:00 170.2 cm [facility] Body weight 2024-11-14 12:51:00 156.491 kg [facility] BMI 2024-11-14 12:51:00 54.03 kg/m2 [facility] Systolic blood pressure 2024-11-07 19:14:00 138 mm[Hg] [facility] Diastolic blood pressure 2024-11-07 19:14:00 90 mm[Hg] [facility] Heart rate 2024-11-07 19:14:00 77 /min [facility] Respiratory rate 2024-11-07 19:14:00 16 /min [facility] Oxygen saturation in Arterial blood by Pulse oximetry 2024-11-07 19:14:00 98 /min [facility] Body height 2024-11-07 19:12:00 167.6 cm [facility] Body weight 2024-11-07 19:12:00 156.491 kg [facility] BMI 2024-11-07 19:12:00 55.68 kg/m2 [facility] Systolic blood pressure 2024-10-25 01:52:00 147 mm[Hg] [facility] Diastolic blood pressure 2024-10-25 01:52:00 89 mm[Hg] [facility] Heart rate 2024-10-25 01:52:00 70 /min [facility] Body temperature 2024-10-25 01:52:00 37.33 Jeanne [facility] Respiratory rate 2024-10-25 01:52:00 19 /min [facility] Oxygen saturation in Arterial blood by Pulse oximetry 2024-10-25 01:52:00 99 /min [facility] Body height 2024-10-24 23:54:00 167.6 cm [facility] Body weight 2024-10-24 23:54:00 158.033 kg [facility] BMI 2024-10-24 23:54:00 56.23 kg/m2 [facility] Systolic blood pressure 2024-02-28 14:47:00 144 mm[Hg] [facility] Diastolic blood pressure 2024-02-28 14:47:00 93 mm[Hg] [facility] Heart rate 2024-02-28 14:47:00 73 /min [facility] Body temperature 2024-02-28 14:45:00 36.17 Jeanne [facility] Respiratory rate 2024-02-28 14:45:00 18 /min [facility] Body height 2024-02-28 14:45:00 165.1 cm [facility] Body weight 2024-02-28 14:45:00 156.99 kg [facility] BMI 2024-02-28 14:45:00 57.59 kg/m2 [facility] Systolic blood pressure 2024-02-14 15:52:00 150 mm[Hg] [facility] Diastolic blood pressure 2024-02-14 15:52:00 90 mm[Hg] [facility] Heart rate 2024-02-14 15:29:00 82 /min [facility] Body temperature 2024-02-14 15:29:00 36.17 Jeanne [facility] Respiratory rate 2024-02-14 15:29:00 18 /min [facility] Body weight 2024-02-14 15:29:00 156.854 kg [facility] BMI 2024-02-14 15:29:00 57.54 kg/m2 [facility] Systolic blood pressure 2024-01-23 13:32:00 147 mm[Hg] [facility] Diastolic blood pressure 2024-01-23 13:32:00 92 mm[Hg] [facility] Heart rate 2024-01-23 13:32:00 74 /min [facility] Body temperature 2024-01-23 13:32:00 36.5 Jeanne [facility] Respiratory rate 2024-01-23 13:32:00 18 /min [facility] Body height 2024-01-23 13:32:00 165.1 cm [facility] Body weight 2024-01-23 13:32:00 156.536 kg [facility] BMI 2024-01-23 13:32:00 57.43 kg/m2 [facility] Systolic blood pressure 2023-12-30 12:55:00 148 mm[Hg] [facility] Diastolic blood pressure 2023-12-30 12:55:00 96 mm[Hg] [facility] Heart rate 2023-12-30 12:55:00 76 /min [facility] Body temperature 2023-12-30 12:55:00 36.22 Jeanne [facility] Respiratory rate 2023-12-30 12:55:00 19 /min [facility] Body height 2023-12-30 12:55:00 165.1 cm [facility] Body weight 2023-12-30 12:55:00 154.949 kg [facility] BMI 2023-12-30 12:55:00 56.85 kg/m2 [facility] Systolic blood pressure 2023-12-07 14:07:00 124 mm[Hg] [facility] Diastolic blood pressure 2023-12-07 14:07:00 73 mm[Hg] [facility] Heart rate 2023-12-07 14:07:00 83 /min [facility] Body temperature 2023-12-07 14:07:00 35.83 Jeanne [facility] Respiratory rate 2023-12-07 14:07:00 18 /min [facility] Body height 2023-12-07 14:07:00 167.6 cm [facility] Body weight 2023-12-07 14:07:00 157.761 kg [facility] BMI 2023-12-07 14:07:00 56.14 kg/m2 [facility] Systolic blood pressure 2023-11-30 13:11:00 118 mm[Hg] [facility] Diastolic blood pressure 2023-11-30 13:11:00 72 mm[Hg] [facility] Heart rate 2023-11-30 13:11:00 85 /min [facility] Body temperature 2023-11-30 13:11:00 36.56 Jeanne [facility] Respiratory rate 2023-11-30 13:11:00 17 /min [facility] Body height 2023-11-30 13:11:00 167.6 cm [facility] Body weight 2023-11-30 13:11:00 158.487 kg [facility] BMI 2023-11-30 13:11:00 56.39 kg/m2 [facility] Systolic blood pressure 2023-11-23 15:46:00 125 mm[Hg] [facility] Diastolic blood pressure 2023-11-23 15:46:00 74 mm[Hg] [facility] Heart rate 2023-11-23 15:46:00 89 /min [facility] Body temperature 2023-11-23 15:46:00 35.67 Jeanne [facility] Respiratory rate 2023-11-23 15:46:00 18 /min [facility] Body height 2023-11-23 15:46:00 167.6 cm [facility] Body weight 2023-11-23 15:46:00 157.489 kg [facility] BMI 2023-11-23 15:46:00 56.04 kg/m2 [facility] Systolic blood pressure 2023-11-19 08:00:00 124 mm[Hg] [facility] Diastolic blood pressure 2023-11-19 08:00:00 71 mm[Hg] [facility] Heart rate 2023-11-19 08:00:00 75 /min [facility] Oxygen saturation in Arterial blood by Pulse oximetry 2023-11-19 08:00:00 99 /min [facility] Body temperature 2023-11-19 05:00:00 36.5 Jeanne [facility] Respiratory rate 2023-11-19 05:00:00 19 /min [facility] Body height 2023-11-19 04:40:00 167.6 cm [facility] Body weight 2023-11-19 04:40:00 159.213 kg [facility] BMI 2023-11-19 04:40:00 56.65 kg/m2 [facility] Body height 2023-11-16 16:37:00 167.6 cm [facility] Body weight 2023-11-16 16:37:00 159.485 kg [facility] BMI 2023-11-16 16:37:00 56.75 kg/m2 [facility] Systolic blood pressure 2023-11-16 16:37:00 117 mm[Hg] [facility] Diastolic blood pressure 2023-11-16 16:37:00 68 mm[Hg] [facility] Heart rate 2023-11-16 16:37:00 80 /min [facility] Body temperature 2023-11-16 16:37:00 35.94 Jeanne [facility] Respiratory rate 2023-11-16 16:37:00 18 /min [facility] Systolic blood pressure 2023-11-02 14:11:00 109 mm[Hg] [facility] Diastolic blood pressure 2023-11-02 14:11:00 64 mm[Hg] [facility] Heart rate 2023-11-02 14:11:00 83 /min [facility] Body temperature 2023-11-02 14:11:00 35.67 Jeanne [facility] Respiratory rate 2023-11-02 14:11:00 18 /min [facility] Body height 2023-11-02 14:11:00 167.6 cm [facility] Body weight 2023-11-02 14:11:00 159.122 kg [facility] BMI 2023-11-02 14:11:00 56.62 kg/m2 [facility] Systolic blood pressure 2023-10-19 14:38:00 117 mm[Hg] [facility] Diastolic blood pressure 2023-10-19 14:38:00 73 mm[Hg] [facility] Heart rate 2023-10-19 14:38:00 83 /min [facility] Body temperature 2023-10-19 14:38:00 36.39 Jeanne [facility] Respiratory rate 2023-10-19 14:38:00 18 /min [facility] Body height 2023-10-19 14:38:00 167.6 cm [facility] Body weight 2023-10-19 14:38:00 160.8 kg [facility] BMI 2023-10-19 14:38:00 57.22 kg/m2 [facility] Systolic blood pressure 2023-10-14 06:00:00 100 mm[Hg] [facility] Diastolic blood pressure 2023-10-14 06:00:00 61 mm[Hg] [facility] Heart rate 2023-10-14 06:00:00 81 /min [facility] Oxygen saturation in Arterial blood by Pulse oximetry 2023-10-14 06:00:00 100 /min [facility] Body temperature 2023-10-14 05:03:00 36.67 Jeanne [facility] Respiratory rate 2023-10-14 05:03:00 16 /min [facility] Body height 2023-10-14 04:30:00 167.6 cm [facility] Body weight 2023-10-14 04:30:00 159.802 kg [facility] BMI 2023-10-14 04:30:00 56.86 kg/m2 [facility] Systolic blood pressure 2023-09-27 14:11:00 135 mm[Hg] [facility] Diastolic blood pressure 2023-09-27 14:11:00 75 mm[Hg] [facility] Heart rate 2023-09-27 14:11:00 87 /min [facility] Body temperature 2023-09-27 14:11:00 36.28 Jeanne [facility] Respiratory rate 2023-09-27 14:11:00 18 /min [facility] Body height 2023-09-27 14:11:00 160 cm [facility] Body weight 2023-09-27 14:11:00 161.662 kg [facility] BMI 2023-09-27 14:11:00 63.13 kg/m2 [facility] Systolic blood pressure 2023-09-15 14:06:00 116 mm[Hg] [facility] Diastolic blood pressure 2023-09-15 14:06:00 65 mm[Hg] [facility] Heart rate 2023-09-15 14:06:00 80 /min [facility] Body temperature 2023-09-15 14:06:00 35.78 Jeanne [facility] Respiratory rate 2023-09-15 14:06:00 18 /min [facility] Body height 2023-09-15 14:06:00 167.6 cm [facility] Body weight 2023-09-15 14:06:00 159.757 kg [facility] BMI 2023-09-15 14:06:00 56.85 kg/m2 [facility] Systolic blood pressure 2023-09-01 15:07:00 110 mm[Hg] [facility] Diastolic blood pressure 2023-09-01 15:07:00 63 mm[Hg] [facility] Heart rate 2023-09-01 15:07:00 81 /min [facility] Body height 2023-09-01 15:07:00 167.6 cm [facility] Body weight 2023-09-01 15:07:00 160.029 kg [facility] BMI 2023-09-01 15:07:00 56.94 kg/m2 [facility] Systolic blood pressure 2023-08-25 14:00:00 137 mm[Hg] [facility] Diastolic blood pressure 2023-08-25 14:00:00 81 mm[Hg] [facility] Heart rate 2023-08-25 14:00:00 87 /min [facility] Body temperature 2023-08-25 14:00:00 37.17 Jeanne [facility] Respiratory rate 2023-08-25 14:00:00 20 /min [facility] Body height 2023-08-25 14:00:00 167.6 cm [facility] Body weight 2023-08-25 14:00:00 158.215 kg [facility] BMI 2023-08-25 14:00:00 56.30 kg/m2 [facility] Systolic blood pressure 2023-08-10 06:00:00 151 mm[Hg] [facility] Diastolic blood pressure 2023-08-10 06:00:00 67 mm[Hg] [facility] Heart rate 2023-08-10 06:00:00 88 /min [facility] Body temperature 2023-08-10 06:00:00 36.72 Jeanne [facility] Respiratory rate 2023-08-10 06:00:00 18 /min [facility] Oxygen saturation in Arterial blood by Pulse oximetry 2023-08-10 06:00:00 98 /min [facility] Body height 2023-08-10 03:02:00 167.6 cm [facility] Body weight 2023-08-10 03:02:00 158.215 kg [facility] BMI 2023-08-10 03:02:00 56.30 kg/m2 [facility] Systolic blood pressure 2023-07-25 14:54:00 136 mm[Hg] [facility] Diastolic blood pressure 2023-07-25 14:54:00 76 mm[Hg] [facility] Heart rate 2023-07-25 14:54:00 87 /min [facility] Body temperature 2023-07-25 14:54:00 36.33 Jeanne [facility] Respiratory rate 2023-07-25 14:54:00 18 /min [facility] Body height 2023-07-25 14:54:00 167.6 cm [facility] Body weight 2023-07-25 14:54:00 157.58 kg [facility] BMI 2023-07-25 14:54:00 56.07 kg/m2 [facility] Systolic blood pressure 2023-07-18 04:10:00 149 mm[Hg] [facility] Diastolic blood pressure 2023-07-18 04:10:00 73 mm[Hg] [facility] Heart rate 2023-07-18 04:10:00 81 /min [facility] Body temperature 2023-07-18 04:10:00 37.5 Jeanne [facility] Respiratory rate 2023-07-18 04:10:00 20 /min [facility] Body height 2023-07-18 04:10:00 167.6 cm [facility] Body weight 2023-07-18 04:10:00 162.388 kg [facility] BMI 2023-07-18 04:10:00 57.78 kg/m2 [facility] Oxygen saturation in Arterial blood by Pulse oximetry 2023-07-18 04:10:00 99 /min [facility] Systolic blood pressure 2023-06-29 13:27:00 131 mm[Hg] [facility] Diastolic blood pressure 2023-06-29 13:27:00 77 mm[Hg] [facility] Heart rate 2023-06-29 13:27:00 87 /min [facility] Body temperature 2023-06-29 13:27:00 36.78 Jeanne [facility] Respiratory rate 2023-06-29 13:27:00 17 /min [facility] Body height 2023-06-29 13:27:00 167.6 cm [facility] Body weight 2023-06-29 13:27:00 157.217 kg [facility] BMI 2023-06-29 13:27:00 55.94 kg/m2 [facility] Diastolic blood pressure 2023-06-12 05:00:00 98 mm[Hg] [facility] Systolic blood pressure 2023-06-12 05:00:00 144 mm[Hg] [facility] Heart rate 2023-06-12 04:37:00 84 /min [facility] Body temperature 2023-06-12 04:37:00 37.61 Jeanne [facility] Respiratory rate 2023-06-12 04:37:00 20 /min [facility] Body height 2023-06-12 04:37:00 167.6 cm [facility] Body weight 2023-06-12 04:37:00 167.831 kg [facility] BMI 2023-06-12 04:37:00 59.72 kg/m2 [facility] Oxygen saturation in Arterial blood by Pulse oximetry 2023-06-12 04:37:00 100 /min [facility] Systolic blood pressure 2021-09-02 12:46:00 178 mm[Hg] [facility] Diastolic blood pressure 2021-09-02 12:46:00 99 mm[Hg] [facility] Heart rate 2021-09-02 12:46:00 101 /min [facility] Body temperature 2021-09-02 12:46:00 38.94 Jeanne [facility] Respiratory rate 2021-09-02 12:46:00 18 /min [facility] Body height 2021-09-02 12:46:00 170.2 cm [facility] Body weight 2021-09-02 12:46:00 158.759 kg [facility] BMI 2021-09-02 12:46:00 54.82 kg/m2 [facility] Oxygen saturation in Arterial blood by Pulse oximetry 2021-09-02 12:46:00 96 /min [facility] Systolic blood pressure 2021-09-01 20:50:00 151 mm[Hg] [facility] Diastolic blood pressure 2021-09-01 20:50:00 94 mm[Hg] [facility] Heart rate 2021-09-01 20:50:00 91 /min [facility] Body temperature 2021-09-01 20:50:00 37.56 Jeanne [facility] Respiratory rate 2021-09-01 20:50:00 18 /min [facility] Body height 2021-09-01 20:50:00 170.2 cm [facility] Body weight 2021-09-01 20:50:00 181.439 kg [facility] BMI 2021-09-01 20:50:00 62.65 kg/m2 [facility] Oxygen saturation in Arterial blood by Pulse oximetry 2021-09-01 20:50:00 100 /min [facility] Heart rate 2021-02-09 11:28:00 84 /min [facility] Oxygen saturation in Arterial blood by Pulse oximetry 2021-02-09 11:28:00 96 /min [facility] Systolic blood pressure 2021-02-09 11:27:00 174 mm[Hg] [facility] Diastolic blood pressure 2021-02-09 11:27:00 116 mm[Hg] [facility] Body temperature 2021-02-09 11:19:00 36.83 Jeanne Simultaneous filing. User may not have seen previous data. [facility] Respiratory rate 2021-02-09 11:19:00 18 /min [facility] Body height 2021-02-09 11:19:00 167.6 cm [facility] Body weight 2021-02-09 11:19:00 158.714 kg [facility] BMI 2021-02-09 11:19:00 56.48 kg/m2 [facility] Systolic blood pressure 2020-10-09 13:00:00 149 mm[Hg] [facility] Diastolic blood pressure 2020-10-09 13:00:00 94 mm[Hg] [facility] Heart rate 2020-10-09 13:00:00 79 /min [facility] Respiratory rate 2020-10-09 13:00:00 18 /min [facility] Oxygen saturation in Arterial blood by Pulse oximetry 2020-10-09 13:00:00 100 /min [facility] Body temperature 2020-10-09 12:23:00 37 Jeanne [facility] Body height 2020-10-09 12:23:00 167.6 cm [facility] Body weight 2020-10-09 12:23:00 167.831 kg [facility] BMI 2020-10-09 12:23:00 59.72 kg/m2 [facility] Systolic blood pressure 2020-10-09 13:00:00 149 mm[Hg] [facility] Diastolic blood pressure 2020-10-09 13:00:00 94 mm[Hg] [facility] Heart rate 2020-10-09 13:00:00 79 /min [facility] Respiratory rate 2020-10-09 13:00:00 18 /min [facility] Oxygen saturation in Arterial blood by Pulse oximetry 2020-10-09 13:00:00 100 /min [facility] Body temperature 2020-10-09 12:23:00 37 Jeanne [facility] Body height 2020-10-09 12:23:00 167.6 cm [facility] Body weight 2020-10-09 12:23:00 167.831 kg [facility] BMI 2020-10-09 12:23:00 59.72 kg/m2 [facility] Systolic blood pressure 2020-08-14 06:46:00 151 mm[Hg] [facility] Diastolic blood pressure 2020-08-14 06:46:00 92 mm[Hg] [facility] Heart rate 2020-08-14 06:46:00 85 /min [facility] Respiratory rate 2020-08-14 06:46:00 20 /min [facility] Oxygen saturation in Arterial blood by Pulse oximetry 2020-08-14 06:46:00 97 /min [facility] Body temperature 2020-08-14 05:53:31 37.72 Jeanne [facility] Body weight 2020-08-14 05:50:00 167.831 kg [facility] BMI 2020-08-14 05:50:00 57.95 kg/m2 [facility] Systolic blood pressure 2020-08-14 06:46:00 151 mm[Hg] [facility] Diastolic blood pressure 2020-08-14 06:46:00 92 mm[Hg] [facility] Heart rate 2020-08-14 06:46:00 85 /min [facility] Respiratory rate 2020-08-14 06:46:00 20 /min [facility] Oxygen saturation in Arterial blood by Pulse oximetry 2020-08-14 06:46:00 97 /min [facility] Body temperature 2020-08-14 05:53:31 37.72 Jeanne [facility] Body weight 2020-08-14 05:50:00 167.831 kg [facility] BMI 2020-08-14 05:50:00 57.95 kg/m2 [facility] Body temperature 2020-05-01 13:17:00 36.94 Jeanne [facility] Respiratory rate 2020-05-01 13:17:00 16 /min [facility] Body height 2020-05-01 13:17:00 170.2 cm [facility] Body weight 2020-05-01 13:17:00 159.326 kg [facility] BMI 2020-05-01 13:17:00 55.01 kg/m2 [facility] Systolic blood pressure 2020-05-01 13:17:00 141 mm[Hg] [facility] Diastolic blood pressure 2020-05-01 13:17:00 92 mm[Hg] [facility] Heart rate 2020-05-01 13:17:00 75 /min [facility] Body temperature 2020-05-01 13:17:00 36.94 Jeanne [facility] Respiratory rate 2020-05-01 13:17:00 16 /min [facility] Body height 2020-05-01 13:17:00 170.2 cm [facility] Body weight 2020-05-01 13:17:00 159.326 kg [facility] BMI 2020-05-01 13:17:00 55.01 kg/m2 [facility] Systolic blood pressure 2020-05-01 13:17:00 141 mm[Hg] [facility] Diastolic blood pressure 2020-05-01 13:17:00 92 mm[Hg] [facility] Heart rate 2020-05-01 13:17:00 75 /min [facility] Systolic blood pressure 2019-04-25 00:34:00 164 mm[Hg] [facility] Diastolic blood pressure 2019-04-25 00:34:00 90 mm[Hg] [facility] Heart rate 2019-04-25 00:34:00 95 /min [facility] Body temperature 2019-04-25 00:34:00 37.17 Jeanne [facility] Respiratory rate 2019-04-25 00:34:00 18 /min [facility] Body height 2019-04-25 00:34:00 170.2 cm [facility] Body weight 2019-04-25 00:34:00 161.072 kg [facility] BMI 2019-04-25 00:34:00 55.62 kg/m2 [facility] Oxygen saturation in Arterial blood by Pulse oximetry 2019-04-25 00:34:00 99 /min [facility] Procedures Procedure Date / Time Performed Performing Clinician Source COMPLETE ECHOCARDIOGRAM EXERCISE STRESS TEST W CONTRAST 2024-11-20 21:22:17 Rebecca Mack [facility] XR KNEE 3 VW LEFT 2024-11-14 13:41:00 Ayah Velazco [facility] LIPASE 2024-10-25 00:19:00 Umesh Tripp [facility] TROPONIN I 2024-10-25 00:19:00 Umesh Tripp [facility] COMP. METABOLIC PANEL (91347) 2024-10-25 00:19:00 Umesh Tripp [facility] CBC WITH DIFF 2024-10-25 00:19:00 Umesh Tripp [facility] XR CHEST 1 VW 2024-10-25 00:10:20 Umesh Tripp [facility] POCT TEST 2024-02-28 14:50:00 Baltazar Cornelius [facility] POCT TEST 2024-02-14 15:31:00 Baltazar Cornelius [facility] POCT URINALYSIS 2023-12-07 14:09:00 Jackie Mendoza [facility] POCT URINALYSIS 2023-11-30 00:00:00 Jackie Mendoza [facility] POCT URINALYSIS 2023-11-23 15:49:00 Jackie Mendoza [facility] SGOT (ASPARTATE AMINO TRANSFER) 2023-11-19 06:49:00 Yaritza [facility] CREATININE 2023-11-19 06:49:00 Yaritza [facility] ALANINE AMINO TRANSFERASE(SGPT 2023-11-19 06:49:00 Yaritza [facility] LACTATE DEHYDROGENASE 2023-11-19 06:49:00 Townsend Herminio [facility] URIC ACID 2023-11-19 06:49:00 Yaritza [facility] CBC WITH DIFF 2023-11-19 06:49:00 TownsendRamirez [facility] PROTEIN CREAT RATIO URINE RANDOM 2023-11-19 06:49:00 Yaritza [facility] ADC CLC OR LCC ONLY - WET PREP 2023-11-19 06:10:00 Yaritza [facility] URINALYSIS 2023-11-19 05:25:00 Yaritza [facility] CONSENT/REFUSAL FOR DIAGNOSIS AND TREATMENT 2023-11-19 04:30:01 Doctor Unassigned, [place] [facility] POCT URINALYSIS 2023-11-16 16:39:00 Jackie Mendoza [facility] POCT URINALYSIS 2023-11-02 14:13:00 Jackie Mendoza [facility] POCT URINALYSIS 2023-10-19 14:39:00 Jackie Mendoza [facility] SECOND AND THIRD TRIMESTER ULTRASOUND 2023-10-19 14:29:00 Geoff Cornelius [facility] POCT GLUCOSE (AUTOMATED) 2023-10-14 05:17:00 Juan Carlos Francis Lesly [facility] ASSIGNMENT OF BENEFITS 2023-10-14 04:14:54 Docto r Unassigned, [place] [facility] NOTICE OF PRIVACY PRACTICES 2023-10-14 04:14:33 Doctor Unassigned, [place] [facility] CONSENT/REFUSAL FOR DIAGNOSIS AND TREATMENT 2023-10-14 04:14:03 Doctor Unassigned, [place] [facility] TDAP VACCINE, >11 YRS, IM 2023-09-27 14:27:57 Geoff Cornelius [facility] POCT URINALYSIS 2023-09-27 14:14:00 Jackie Mendoza [facility] 3 HR GLUCOSE TOLERANCE TEST 2023-09-21 17:28:00 Geoff Cornelius [facility] SECOND AND THIRD TRIMESTER ULTRASOUND 2023-09-21 16:35:00 Geoff Cornelius [facility] 2 HR GLUCOSE TOLERANCE TEST 2023-09-21 16:28:00 Geoff Cornelius [facility] 1 HR GLUCOSE TOLERANCE TEST 2023-09-21 15:28:00 Geoff Cornelius [facility] GLUCOSE FASTING 2023-09-21 14:28:00 Geoff Cornelius [facility] CBC WITH DIFF 2023-09-21 14:28:00 Geoff Cornelius [facility] 3 HR GLUCOSE TOLERANCE PANEL 2023-09-21 14:28:00 Geoff Cornelius [facility] POCT URINALYSIS 2023-09-15 14:10:00 Jackie Mendoza [facility] STERILIZATION CONSENT FORM 2023-09-15 06:01:00 Doctor Unassigned, [place] [facility] POCT URINALYSIS 2023-08-25 14:03:00 Jackie Mendoza [facility] CONSENT FOR NIPT 2023-08-25 06:01:00 Doctor Unas signed, [place] [facility] SECOND AND THIRD TRIMESTER ULTRASOUND 2023-08-24 16:22:00 Geoff Cornelius [facility] US PELVIS > 14 WEEKS WITH TRANSVAGINAL 2023-08-10 05:45:00 Naomy Vaughan [facility] LIPASE 2023-08-10 03:29:00 Naomy Vaughan [facility] COMP. METABOLIC PANEL (19663) 2023-08-10 03:29:00 Naomy Vaughan [facility] TOTAL BETA HCG ASSAY 2023-08-10 03:29:00 Naomy Vaughan [facility] CBC WITH DIFF 2023-08-10 03:29:00 [facility] 2023-08-10 03:29:00 Naomy Vaughan Uni [facility] NOTICE OF PRIVACY PRACTICES 2023-08-10 02:49:12 Doctor Unassigned, [place] [facility] CONSENT/REFUSAL FOR DIAGNOSIS AND TREATMENT 2023-08-10 02:48:34 Doctor Unassigned, [place] [facility] POCT URINALYSIS 2023-07-25 14:55:00 Jackie Mendoza [facility] ASSIGNMENT OF BENEFITS 2023-07-18 05:38:05 Docto r Unassigned, [place] [facility] NOTICE OF PRIVACY PRACTICES 2023-07-18 03:58:31 Doctor Unassigned, [place] [facility] CONSENT/REFUSAL FOR DIAGNOSIS AND TREATMENT 2023-07-18 03:57:41 Doctor Unassigned, [place] [facility] CREATININE U 24 HR 2023-07-12 13:25:00 Sue Mendoza [facility] PROTEIN QUANT U/24H 2023-07-12 13:25:00 Jasmine Mendoza [facility] ASSIGNMENT OF BENEFITS 2023-06-29 13:02:56 Docto r Unassigned, [place] [facility] POCT TEST 2023-06-29 00:00:00 Jasmine Mendoza [facility] POCT URINALYSIS W/O SPECIFIC GRAVITY 2023-06-29 00:00:00 Jackie Mendoza [facility] POCT TEST 2023-06-12 04:56:00 Keyana Silva [facility] CONSENT/REFUSAL FOR DIAGNOSIS AND TREATMENT 2023-06-12 04:17:29 Doctor Unassigned, [place] [facility] CONSENT/REFUSAL FOR DIAGNOSIS AND TREATMENT 2021-09-02 12:42:21 Doctor Unassigned, [place] [facility] ASSIGNMENT OF BENEFITS 2021-09-01 21:01:09 Docto r Unassigned, [place] [facility] NOTICE OF PRIVACY PRACTICES 2021-09-01 20:19:48 Doctor Unassigned, [place] [facility] CONSENT/REFUSAL FOR DIAGNOSIS AND TREATMENT 2021-09-01 20:19:20 Doctor Unassigned, [place] [facility] XR HAND 3+ VW RIGHT 2021-02-09 11:33:29 Lavon Nieves [facility] NOTICE OF PRIVACY PRACTICES 2021-02-09 11:15:53 Doctor Unassigned, [place] [facility] CONSENT/REFUSAL FOR DIAGNOSIS AND TREATMENT 2021-02-09 11:13:48 Doctor Unassigned, [place] [facility] NOTICE OF PRIVACY PRACTICES 2020-10-09 12:16:21 Doctor Unassigned, [place] [facility] CONSENT/REFUSAL FOR DIAGNOSIS AND TREATMENT 2020-10-09 12:15:21 Doctor Unassigned, [place] [facility] POCT TEST 2020-08-14 06:01:00 Trina Jon [facility] ASSIGNMENT OF BENEFITS 2020-05-01 12:50:33 Docto r Unassigned, [place] [facility] XR WRIST 3+ VW LEFT 2019-04-25 01:10:18 Marta Blanca [facility] Encounters Start Date/Time End Date/Time Encounter Type Admission Type Attending Clinicians Care Facility Care Department Encounter ID Source 2023-10-14 01:06:37 Outpatient X [facility] APRIL [id number] [facility] 2021-07-18 18:28:29 Emergency [facility] [id number] [facility] 2021-07-18 07:53:56 Emergency [facility] [id number] [facility] 2025-01-22 20:00:00 2025-01-22 20:00:00 Outpatient R SHANELL [facility] [id number] [facility] 2024-12-05 10:00:00 2024-12-05 10:00:00 Outpatient R GENESIS HANS[facility] [id number] [facility] 2024-11-20 14:03:01 2024-11-20 23:59:00 Outpatient R MARTINAREBECCA [facility] [id number] [facility] 2024-11-20 14:03:01 2024-11-20 23:59:00 Hospital Encounter Rebecca Mack [facility] 1.2.840.114 350.1.13.10 4.2.7.2.686 [id number] [facility] 2024-11-20 16:00:00 2024-11-20 16:28:18 Office Visit Tracy Dominguez [facility] 1.2.840.114 350.1.13.10 4.2.7.2.686 [id number] [facility] 2024-11-14 06:52:00 2024-11-14 08:38:00 Emergency X AYAH VELAZCO DONNELL [facility] ERT [id number] [facility] 2024-11-14 06:52:00 2024-11-14 08:38:00 Emergency Ayah Velazco [facility] 1.2.840.114 350.1.13.10 4.2.7.2.686 [id number] [facility] 2024-11-07 00:00:00 2024-11-08 14:58:31 Letter (Out) MartinaRebecca [facility] MED[facility] 1.2.840.114 350.1.13.10 4.2.7.2.686 [id number] [facility] 2024-11-07 13:00:00 2024-11-07 13:31:29 Outpatient R REBECCA MACK [facility] [id number] [facility] 2024-11-07 13:00:00 2024-11-07 13:31:29 Office Visit Rebecca Mack [facility] MED[facility] OFF[facility]ILD[facility] 1.84.114 350.1.13.10 4.2.7.2.686 [id number] [facility] 2024-10-24 17:57:00 2024-10-24 19:57:00 Emergency X UMESH TRIPP ERICCA [facility] ERT [id number] [facility] 2024-10-24 17:57:00 2024-10-24 19:57:00 Emergency Umesh Tripp [facility] 1.840.114 350.1.13.10 4.2.7.2.686 [id number] [facility] 2024-04-24 08:45:00 2024-04-24 08:45:00 Outpatient [facility] [id number] [facility] 2024-04-10 08:45:00 2024-04-10 08:45:00 Outpatient R [facility]OFF [facility] [id number] [facility] 2024-02-28 00:00:00 2024-03-31 18:19:08 Patient Secure Msg Geoff Cornelius [facility] INVENTORY AUDIT CLERK [facility] & CHILD [facility] .840.114 350.1.13.10 4.2.7.2.686 [id number] [facility] 2024-02-28 00:00:00 2024-02-29 10:10:03 Refill Geoff Cornelius [facility] INVENTORY AUDIT CLERK [facility] & CHILD [facility] 1..840.114 350.1.13.10 4.2.7.2.686 [id number] [facility] 2024-02-28 09:45:00 2024-02-28 10:41:00 Outpatient R GEOFF [facility] [id number] [facility] 2024-02-28 09:45:00 2024-02-28 10:41:00 Office Visit Geoff Cornelius [facility] INVENTORY AUDIT CLERK [facility] CHILD [facility] 1.2.840.114 350.1.13.10 4.2.7.2.686 [id number] [facility] 2024-02-14 10:30:00 2024-02-14 10:51:20 Outpatient R GEOFF [facility] [id number] [facility] 2024-02-14 10:30:00 2024-02-14 10:51:20 Office Visit Geoff Cornelius [facility] INVENTORY AUDIT CLERK [facility] CHILD [facility] 1.2.840.114 350.1.13.10 4.2.7.2.686 [id number] [facility] 2024-01-03 00:00:00 2024-02-04 18:06:30 Patient Secure Msg Doctor Unassigned, [place] [facility] 1.2.840.114 350.1.13.10 4.2.7.2.686 [id number] [facility] 2024-01-03 00:00:00 2024-02-04 18:06:00 Patient Secure Msg Doctor Unassigned, [place] [facility] 1.2840.114 350.1.13.10 4.2.7.2.686 [id number] [facility] 2024-01-23 08:45:00 2024-01-23 09:04:58 Outpatient R GEOFF [facility] [id number] [facility] 2024-01-23 08:45:00 2024-01-23 09:04:58 Office Visit Geoff Cornelius [facility] INVENTORY AUDIT [facility] 1.2.840.114 350.1.13.10 4.2.7.2.686 [id number] [facility] 2023-12-30 07:45:00 2023-12-30 08:40:15 Outpatient R GEOFF [facility] [id number] [facility] 2023-12-30 07:45:00 2023-12-30 08:40:15 Routine Visit Geoff Cornelius [facility] INVENTORY AUDIT CLERK [facility] & CHILD [facility] 1.2.840.114 350.1.13.10 4.2.7.2.686 [id number] [facility] 2023-12-09 09:19:00 2023-12-11 12:00:00 Inpatient P ELE, HEATHER LAO [facility] APRIL [id number] [facility] 2023-12-07 09:00:00 2023-12-07 09:15:00 Routine Visit Geoff Cornelius [facility] INVENTORY AUDIT CLERK [facility] & CHILD [facility] 1.2.840.114 350.1.13.10 4.2.7.2.686 [id number] [facility] 2023-12-07 09:00:00 2023-12-07 09:00:00 Outpatient R GEOFF [facility] [id number] [facility] 2023-12-02 09:00:00 2023-12-02 09:00:00 Outpatient R GEOFF [facility] [id number] [facility] 2023-11-30 08:00:00 2023-11-30 08:39:51 Outpatient R GEOFF [facility] [id number] [facility] 2023-11-30 08:00:00 2023-11-30 08:39:51 Routine Visit Geoff Cornelius [facility] INVENTORY AUDIT CLERK [facility] & CHILD [facility] 1..840.114 350.1.13.10 4.2.7.2.686 [id number] [facility] 2023-11-23 09:45:00 2023-11-23 10:11:25 Outpatient R GEOFF [facility] [id number] [facility] 2023-11-23 09:45:00 2023-11-23 10:11:25 Routine Visit Geoff Cornelius [facility] INVENTORY AUDIT CLERK [facility] & CHILD [facility] 1..840.114 350.1.13.10 4.2.7.2.686 [id number] [facility] 2023-11-18 22:41:00 2023-11-19 03:00:00 Outpatient X TOWNSEND-WILMAN S, LESLY TOWNSEND-WILMAN S, LESLY [facility] APRIL [id number] [facility] 2023-11-18 22:41:00 2023-11-19 03:00:00 Emergency Townsend-Wilman s, Lesly [facility] 1..840.114 350.1.13.10 4.2.7.2.686 [id number] [facility] 2023-11-16 10:45:00 2023-11-16 11:07:43 Outpatient R [facility]OFF [facility] [id number] [facility] 2023-11-16 10:45:00 2023-11-16 11:07:43 Routine Visit Geoff Cornelius [facility] INVENTORY AUDIT CLERK [facility] & CHILD [facility] 1..840.114 350.1.13.10 4.2.7.2.686 [id number] [facility] 2023-11-02 08:00:00 2023-11-02 08:29:56 Outpatient R [facility]OFF [facility] [id number] [facility] 2023-11-02 08:00:00 2023-11-02 08:29:56 Routine Visit Geoff Cornelius [facility] INVENTORY AUDIT CLERK [facility] & CHILD [facility] 1.2.840.114 350.1.13.10 4.2.7.2.686 [id number] [facility] 2023-10-25 00:00:00 2023-10-25 00:00:00 Patient Secure Msg Geoff Cornelius [facility] INVENTORY AUDIT CLERK [facility] [facility] & [facility]ILD [facility] 1.2.840.114 350.1.13.10 4.2.7.2.686 [id number] [facility] 2023-10-21 00:00:00 2023-10-21 00:00:00 Abstract Geoff Cornelius [facility] INVENTORY AUDIT CLERK [facility] CHILD [facility] 1.2.840.114 350.1.13.10 4.2.7.2.686 [id number] 107 [id number] [facility] 2023-10-19 08:45:00 2023-10-19 09:09:23 Routine Visit Geoff Cornelius [facility] INVENTORY AUDIT CLERK [facility] CHILD [facility] 1.2.840.114 350.1.13.10 4.2.7.2.686 [id number] 107 [id number] [facility] 2023-10-19 08:00:00 2023-10-19 08:26:37 Outpatient P ANNABELLA [facility] [id number] [facility] 2023-10-19 08:00:00 2023-10-19 08:26:37 Occupational Therapist Home Based Visit Ultrasound, Raf-Annabella Coyne [facility] INVENTORY AUDIT CLERK [facility] & CHILD [facility] 1.2.840.114 350.1.13.10 4.2.7.2.686 [id number] [facility] 2023-10-13 22:31:00 2023-10-14 00:17:00 Outpatient X MICHELLE S, LESLY MICHELLE S, LESLY [facility] APRIL [id number] [facility] 2023-10-13 22:31:00 2023-10-14 00:17:00 Emergency Lesly Toure [facility] ..114 350.1.13.10 4.2.7.2.686 [id number] [id number] [facility] 2023-10-11 07:45:00 2023-10-11 07:45:00 Outpatient R [facility] [id number] [facility] 2023-09-28 00:00:00 2023-09-28 00:00:00 Abstract Geoff Cornelius [facility] INVENTORY AUDIT CLERK [facility] MATERNAL & CHILD [facility] 1..114 350.1.13.10 4.2.7.2.686 [id number] 107 [id number] [facility] 2023-09-27 07:45:00 2023-09-27 08:37:25 Outpatient R [facility] [id number] [facility] 2023-09-27 07:45:00 2023-09-27 08:37:25 Routine Visit Geoff Cornelius [facility] INVENTORY AUDIT CLERK [facility] MATERNAL & CHILD [facility] ..114 350.1.13.10 4.2.7.2.686 [id number] 107 [id number] [facility] 2023-09-21 09:45:00 2023-09-21 11:45:50 Occupational Therapist Home Based Visit Ultrasound, Raf-Geoff Liu [facility] INVENTORY AUDIT CLERK [facility] MATERNAL & CHILD [facility] ..114 350.1.13.10 4.2.7.2.686 [id number] [facility] 2023-09-21 08:00:00 2023-09-21 11:45:38 Outpatient R [facility] [id number] [facility] 2023-09-21 08:00:00 2023-09-21 11:45:38 Occupational Therapist Home Based Visit Lab, Ang-Rmchp Geoff Cornelius [facility] INVENTORY AUDIT CLERK [facility] & CHILD [facility] 1..840.114 350.1.13.10 4.2.7.2.686 [id number] [facility] 2023-09-15 08:00:00 2023-09-15 08:47:46 Outpatient R [facility] [id number] [facility] 2023-09-15 08:00:00 2023-09-15 08:47:46 Routine Visit Geoff Cornelius [facility] INVENTORY AUDIT CLERK [facility] & CHILD [facility] 1..840.114 350.1.13.10 4.2.7.2.686 [id number] 107 [id number] [facility] 2023-09-15 00:00:00 2023-09-15 00:00:00 Orders Only Doctor Unassigned, Turley [facility] 1..840.114 350.1.13.10 4.2.7.2.686 [id number] [facility] 2023-09-09 00:00:00 2023-09-09 00:00:00 Outpatient R SEBASTIEN LEE [facility] [id number] [facility] 2023-09-01 09:00:00 2023-09-01 09:14:53 Outpatient R SEBASTIEN LEE [facility] [id number] [facility] 2023-09-01 09:00:00 2023-09-01 09:14:53 Office Visit Sebastien Lee [facility] 1.2.84.114 350.1.13.10 4.2.7.2.686 [id number] [facility] 2023-08-25 07:45:00 2023-08-25 08:48:59 Outpatient R HEYDICLARISSARUSH [facility] [id number] [facility] 2023-08-25 07:45:00 2023-08-25 08:48:59 Routine Visit Geoff Cornelius [facility] INVENTORY AUDIT CLERK [facility] MATERNAL & CHILD [facility] 1.840.114 350.1.13.10 4.2.7.2.686 [id number] [facility] 2023-08-25 00:00:00 2023-08-25 00:00:00 Orders Only Doctor Unassigned, Turley [facility] 1.840.114 350.1.13.10 4.2.7.2.686 [id number] [id number] [facility] 2023-08-24 09:00:00 2023-08-24 10:35:47 Outpatient [facility] [id number] [facility] 2023-08-24 09:00:00 2023-08-24 10:35:47 Occupational Therapist Home Based Visit 2, [facility] Room Carmen Callowayanak [facility] INVENTORY AUDIT CLERK [facility] MATERNAL & CHILD [facility] 1.840.114 350.1.13.10 4.2.7.2.686 [id number] [facility] 2023-08-24 00:00:00 2023-08-24 00:00:00 Abstract Geoff Cornelius [facility] INVENTORY AUDIT CLERK [facility] MATERNAL & CHILD [facility] 1.840.114 350.1.13.10 4.2.7.2.686 [id number] 107 [id number] [facility] 2023-08-23 13:15:00 2023-08-23 13:15:00 Outpatient R [facility] [id number] [facility] 2023-08-19 00:00:00 2023-08-19 00:00:00 Telephone Geoff Cornelius [facility] INVENTORY AUDIT CLERK [facility] & CHILD [facility] 1.2.840.114 350.1.13.10 4.2.7.2.686 [id number] 107 [id number] [facility] 2023-08-19 00:00:00 2023-08-19 00:00:00 Telephone Geoff Cornelius [facility] INVENTORY AUDIT CLERK [facility] & CHILD [facility] 1.2.840.114 350.1.13.10 4.2.7.2.686 [id number] [facility] 2023-08-19 00:00:00 2023-08-19 00:00:00 Telephone Geoff Cornelius [facility] INVENTORY AUDIT CLERK [facility] & CHILD [facility] 1.2.840.114 350.1.13.10 4.2.7.2.686 [id number] 107 [id number] [facility] 2023-08-19 00:00:00 2023-08-19 00:00:00 Patient Secure Msg Pcp, Patient Does Not Have A [facility] 1.2.840.114 350.1.13.10 4.2.7.2.686 [id number] [facility] 2023-08-09 21:13:00 2023-08-10 00:40:00 Emergency X NAOMY VAUGHAN [facility] ERT [id number] [facility] 2023-08-09 21:13:00 2023-08-10 00:40:00 Emergency Naomy Vaughan [facility] 1.2.840.114 350.1.13.10 4.2.7.2.686 [id number] [facility] 2023-08-08 00:00:00 2023-08-08 00:00:00 Patient Secure Msg Geoff Cornelius [facility] INVENTORY AUDIT CLERK [facility] MATERNAL & CHILD [facility] 1.0.114 350.1.13.10 4.2.7.2.686 [id number] 107 [id number] [facility] 2023-07-25 09:00:00 2023-07-25 09:28:16 Outpatient R [facility] [id number] [facility] 2023-07-25 09:00:00 2023-07-25 09:28:16 Routine Visit Geoff Cornelius [facility] INVENTORY AUDIT CLERK [facility] CHILD [facility] 1.0.114 350.1.13.10 4.2.7.2.686 [id number] [facility] 2023-07-17 23:12:00 2023-07-18 00:48:00 Emergency X ZANE PEÑA [facility] ERT [id number] [facility] 2023-07-17 23:12:00 2023-07-18 00:48:00 Emergency JustinZane goncalves [facility] 1..114 350.1.13.10 4.2.7.2.686 [id number] [id number] [facility] 2023-07-18 00:00:00 2023-07-18 00:00:00 Patient Secure Msg Doctor Unassigned, Turley [facility] 1..114 350.1.13.10 4.2.7.2.686 [id number] [facility] 2023-07-12 07:45:00 2023-07-12 07:45:00 Occupational Therapist Home Based Visit Lab, Ang-Rmchp Geoff Cornelius [facility] INVENTORY AUDIT CLERK [facility] & CHILD [facility] 1.0.114 350.1.13.10 4.2.7.2.686 [id number] [facility] 2023-07-12 07:45:00 2023-07-12 07:37:34 Outpatient R [facility] [id number] [facility] 2023-07-11 00:00:00 2023-07-11 00:00:00 Telephone Jackie Mendoza [facility] INVENTORY AUDIT CLERK [facility] & CHILD [facility] .840.114 350.1.13.10 4.2.7.2.686 [id number] [facility] 2023-07-04 08:00:00 2023-07-04 08:05:46 Outpatient R [facility] [id number] [facility] 2023-07-04 08:00:00 2023-07-04 08:05:46 Occupational Therapist Home Based Visit Lab, Ang-Rmchp Geoff Cornelius [facility] INVENTORY AUDIT CLERK [facility] & CHILD [facility] .840.114 350.1.13.10 4.2.7.2.686 [id number] [facility] 2023-07-04 00:00:00 2023-07-04 00:00:00 Telephone Jackie Mendoza [facility] INVENTORY AUDIT CLERK [facility] & CHILD [facility] .840.114 350.1.13.10 4.2.7.2.686 [id number] [facility] 2023-06-30 00:00:00 2023-06-30 00:00:00 Case Management Jackie Mendoza [facility] INVENTORY AUDIT CLERK [facility] & CHILD [facility] .840.114 350.1.13.10 4.2.7.2.686 [id number] 107 [id number] [facility] 2023-06-30 00:00:00 2023-06-30 00:00:00 Telephone Jackie Mendoza [facility] INVENTORY AUDIT CLERK [facility] & CHILD [facility] 1.2.840.114 350.1.13.10 4.2.7.2.686 [id number] [facility] 2023-06-29 08:15:00 2023-06-29 09:10:32 [facility] [id number] 2023-06-29 08:15:00 2023-06-29 09:10:32 Initial Visit Jackie Mendoza [facility] INVENTORY AUDIT CLERK [facility] MATERNAL & CHILD [facility] 1.2840.114 350.1.13.10 4.2.7.2.686 [id number] 107 [id number] [facility] 2023-06-29 00:00:00 2023-06-29 00:00:00 Orders Only Doctor Unassigned, Turley [facility] 1.840.114 350.1.13.10 4.2.7.2.686 [id number] [facility] 2023-06-11 23:45:00 2023-06-12 01:41:00 Emergency X LUCIANO SILVA [facility] ERT [id number] [facility] 2023-06-11 23:45:00 2023-06-12 01:41:00 Emergency Brookesuresh Luciano [facility] 1.840.114 350.1.13.10 4.2.7.2.686 [id number] [facility] 2021-09-02 06:37:00 2021-09-02 07:51:00 Emergency X ANAT JONES [facility] ERT [id number] [facility] 2021-09-02 06:37:00 2021-09-02 07:51:00 Emergency Anat Jones [facility] 1.840.114 350.1.13.10 4.2.7.2.686 [id number] [facility] 2021-09-01 14:51:00 2021-09-01 15:14:00 Emergency X ANAT JONES [facility] ERT [id number] [facility] 2021-09-01 14:51:00 2021-09-01 15:14:00 Emergency Anat Jones [facility] 1.2.840.114 350.1.13.10 4.2.7.2.686 [id number] [id number] [facility] 2021-09-01 00:00:00 2021-09-01 00:00:00 Orders Only Doctor Unassigned, Turley [facility] 1.2.840.114 350.1.13.10 4.2.7.2.686 [id number] [id number] [facility] 2021-02-09 06:22:00 2021-02-09 07:34:00 Emergency Ezequiel Perlabarry Aj [facility] 1.2.840.114 350.1.13.10 4.2.7.2.686 [id number] [facility] 2021-02-09 06:22:00 2021-02-09 07:34:00 Emergency X LAVON NIEVES [facility] ERT [id number] [facility] 2020-12-09 00:00:00 2020-12-09 00:00:00 Patient Outreach Lenin Shea [facility] 1.2.840.114 350.1.13.10 4.2.7.2.686 [id number] [facility] 2020-10-09 06:19:00 2020-10-09 08:57:00 Emergency Theresa Alcantara Phillip [facility] 1.2.840.114 350.1.13.10 4.2.7.2.686 [id number] [id number] 2020-10-09 06:19:00 2020-10-09 08:57:00 Emergency Theresa Alcantaraer Christopher [facility] 1.2.840.114 350.1.13.10 4.2.7.2.686 [id number] [id number] [facility] 2020-10-09 00:00:00 2020-10-09 00:00:00 Orders Only Doctor Unassigned, Turley [facility] 1.2.840.114 350.1.13.10 4.2.7.2.686 [id number] [id number] [facility] 2020-10-09 00:00:00 2020-10-09 00:00:00 Orders Only Doctor Unassigned, Turley [facility] 1.2.840.114 350.1.13.10 4.2.7.2.686 [id number] 009 [id number] 2020-08-13 23:46:00 2020-08-14 00:58:00 Emergency Airam Jon [facility] 1.2.840.114 350.1.13.10 4.2.7.2.686 [id number] [id number] [facility] 2020-08-13 23:46:00 2020-08-14 00:58:00 Emergency Airam Jon [facility] 1.2.840.114 350.1.13.10 4.2.7.2.686 [id number] [id number] 2020-05-05 00:00:00 2020-05-05 00:00:00 Telephone Juan Jones [facility] INVENTORY AUDIT CLERK [facility] MATERNAL & CHILD [facility] 1.2.840.114 350.1.13.10 4.2.7.2.686 [id number] [facility] 2020-05-05 00:00:00 2020-05-05 00:00:00 Telephone Juan Jones [facility] INVENTORY AUDIT CLERK [facility] MATERNAL & CHILD [facility] 1.2.840.114 350.1.13.10 4.2.7.2.686 [id number] 2020-05-01 07:54:53 2020-05-01 08:58:33 Office Visit Juan Jones [facility] INVENTORY AUDIT CLERK [facility] & CHILD [facility] 1.2.840.114 350.1.13.10 4.2.7.2.686 [id number] [facility] 2020-05-01 07:54:53 2020-05-01 08:58:33 Office Visit Juan Jones [facility] INVENTORY AUDIT CLERK [facility] & CHILD [facility] 1.2.840.114 350.1.13.10 4.2.7.2.686 [id number] 2020-05-01 08:00:00 2020-05-01 08:00:00 Outpatient [facility] [id number] [facility] 2020-05-01 00:00:00 2020-05-01 00:00:00 Orders Only Doctor Unassigned, Turley [facility] 1.2.840.114 350.1.13.10 4.2.7.2.686 [id number] [id number] [facility] 2019-04-24 20:31:49 2019-04-24 22:36:00 Emergency Marta Blanca [facility] 1.2.840.114 350.1.13.10 4.2.7.2.686 [id number] [id number] [facility] Results Test Description Test Time Test Comments Results Result Co mments Source [facility] vw [id number] 13:44:06HISTORY: ?Pain. FINDINGS: AP, lateral, sunrise views of left knee are obtained and comparedwith 07/17/2023 study. No acute fracture or dislocation. Small knee joint effusion noted with changes of degenerative arthritis inthe medial knee joint in the form of minimal narrowing of the joint space,subchondral sclerosis, focal subchondral bone loss in the weightbearingmedial femoral condyle, osteophytes along the articular edges of the bones.Small osteophytes also noted along the articular edges of the patella.Lateral compartment of the knee joint appears to be relatively wellpreserved. No calcifications are seen in the soft tissues or in the meniscalfibrocartilage lining. CONCLUSIONS: No acute fracture or dislocation in left knee .[facility] 2024-10-25 00:58:52* Test Item Value Reference Range Interpretation Comme nts TROPONIN I (test code = 0574377837) 0.001 ng/mL <=0.034 SYLWIA (test code = SYLWIA) Reference (Normal) Range (defined by the 99th percentile reference limit): <= 0.034 ng/mL Note: Cardiac troponin begins to rise 3-4 hours after the onset of ischemia. Repeat in 4-6 hours if the sample was drawn within 3-4 hours of the onset of the symptom and found normal. Diagnosis of myocardial injury is made with acute changes in cTn concentrations with at least one serial sample above the 99th percentile upper reference limit (URL), taken together with the patient's clinical presentation. Biotin has been reported to cause a negative bias, interpret results relative to patient's use of biotin. Lab Interpretation (test code = 75452-1) Normal [facility] Chest 1 [id number] 00:56:05CHEST X-RAY AP PORTABLE 10/24/2024 6:55 PM Ordering physician: UMESH TRIPP CLINICAL INFORMATION: ?Shortness of breath COMPARISON: None TECHNIQUE: ?single AP view of the chest was submitted. FINDINGS: ? Mild central pulmonary vascular prominence. The lung pandey are otherwiseclear. ?No pleural effusions. ?No pneumothorax. Cardiomegaly. Thecardiomediastinal silhouette is otherwise within normal limits. ?No acuteradiographic bony abnormalities.[facility]2025-02-06 00:47:49* Test Item Value Reference Range Interpretation Comme nts NA (test code = 4173838229) 137 mmol/L 135-145 K (test code = 6387926601) 3.6 mmol/L 3.5-5.0 CL (test code = 4394304117) 105 mmol/L 98-108 CO2 TOTAL (test code = 0352082790) 25 mmol/L 23-31 AGAP (test code = 3183950973) 7 2-16 BUN (test code = 0245149277) 13 mg/dL 7-23 GLUCOSE (test code = 3376029037) 108 mg/dL 70-110 CREATININE (test code = 2160-0) 0.60 mg/dL 0.50-1.04 TOTAL BILI (test code = 1300501840) 0.5 mg/dL 0.1-1.1 CALCIUM (test code = 8682521831) 9.1 mg/dL 8.6-10.6 T PROTEIN (test code = 9466713066) 7.0 g/dL 6.3-8.2 ALBUMIN (test code = 2189736217) 3.8 g/dL 3.5-5.0 ALK PHOS (test code = 4228696627) 71 U/L 34-122 ALTv (test code = 1742-6) 18 U/L 5-35 AST(SGOT) (test code = 3558947435) 17 U/L 13-40 eGFR (test code = 60255-3) 119.5 mL/min/1.73m2 CKD-EPI eGFR (20 21). Assuming creatinine has been stable day-to-day for at least three months, the eGFR indicates Category G1 (>= 90 mL/min/1.73 m2) [facility]2025-02-[facility] 00:47:13* Test Item Value Reference Range Interpretation Comme nts LIPASE (test code = 8166610120) 29 U/L 0-220 Lab Interpretation (test cod e = 03333-3) Normal [facility] with [id number] 00:33:52* Test Item Value Reference Range Interpretation Comme nts WBC (test code = 6690-2) 9.16 4.30-11.10 RBC (test code = 789-8) 4.51 3.93-5.25 HGB (test code = 718-7) 13.4 g/dL 11.6-15.0 HCT (test code = 4544-3) 41.0 % 35.7-45.2 MCV (test code = 787-2) 90.9 fL 80.6-95.5 MCH (test code = 785-6) 29.7 pg 25.9-32.8 MCHC (test code = 786-4) 32.7 g/dL 31.6-35.1 RDW-SD (test code = 71192-9) 47.9 fL 39.0-49.9 RDW-CV (test code = 788-0) 14.3 % 12.0-15.5 PLT (test code = 777-3) 302 166-358 MPV (test code = 28233-7) 9.9 fL 9.5-12.9 NRBC/100 WBC (test code = 4111542896) 0.0 0.0-10.0 NRBC x10^3 (test code = 5773824231) See_Comment [Automated messa ge] The system which generated this result transmitted reference range: 10*3/?L. The reference range was not used to interpret this result as normal/abnormal. GRAN MAT (NEUT) % (test code = 770-8) 54.7 % IMM GRAN % (test code = 5082908422) 0.20 % LYMPH % (test code = 736-9) 36.6 % MONO % (test code = 5905-5) 5.9 % EOS % (test code = 713-8) 2.2 % BASO % (test code = 706-2) 0.4 % GRAN MAT x10^3(ANC) (test code = 4554329906) 5.01 10*3/uL 1.88-7.09 IMM GRAN x10^3 (test code = 2641181135) 0.00-0.06 LYMPH x10^3 (test code = 731-0) 3.35 10*3/uL 1.32-3.29 H MONO x10^3 (test code = 742-7) 0.54 10*3/uL 0.33-0.92 EOS x10^3 (test code = 711-2) 0.20 10*3/uL 0.03-0.39 BASO x10^3 (test code = 704-7) 0.04 10*3/uL 0.01-0.07 Lab Interpretation (test code = 81092-2) Abnormal [facility] [id number] 14:50:00* Test Item Value Reference Range Interpretation Comme nts POCT PREG (test code = 1605) Negative On board controls acceptable with C Line (test code = 3574) Yes POCT PREG LOT # (test code = 3575) POCT PREG TEST DATE ( test code = 3576) [facility] [id number] 14:50:00* Test Item Value Reference Range Interpretation Comme nts POCT PREG (test code = 1605) Negative On board controls acceptable with C Line (test code = 3574) Yes POCT PREG LOT # (test code = 3575) POCT PREG TEST DATE ( test code = 3576) [facility] [id number] 15:31:00* Test Item Value Reference Range Interpretation Comme nts POCT PREG (test code = 1605) Negative On board controls acceptable with C Line (test code = 3574) Yes POCT PREG LOT # (test code = 3575) POCT PREG TEST DATE ( test code = 3576) [facility] [id number] 15:31:00* Test Item Value Reference Range Interpretation Comme nts POCT PREG (test code = 1605) Negative On board controls acceptable with C Line (test code = 3574) Yes POCT PREG LOT # (test code = 3575) POCT PREG TEST DATE ( test code = 3576) [facility] URINALYSIS W SPECIFIC [id number] 14:10:00* Test Item Value Reference Range Interpretation [...] U APPEAR (test code = 3267) . [facility] URINALYSIS W SPECIFIC [id number] 13:14:00* Test Item Value Reference Range Interpretation [...] U APPEAR (test code = 3267) . [facility] URINALYSIS W SPECIFIC [id number] 15:49:00* Test Item Value Reference Range Interpretation [...] U APPEAR (test code = 3267) . [facility] URINALYSIS W SPECIFIC [id number] 15:49:00* Test Item Value Reference Range Interpretation [...] U APPEAR (test code = 3267) . [facility] URINALYSIS W SPECIFIC [id number] 16:40:00* Test Item Value Reference Range Interpretation [...] U APPEAR (test code = 3267) . [facility] URINALYSIS W SPECIFIC [id number] 14:13:00* Test Item Value Reference Range Interpretation [...] U APPEAR (test code = 3267) . [facility] URINALYSIS W SPECIFIC [id number] 14:13:00* Test Item Value Reference Range Interpretation [...] U APPEAR (test code = 3267) . [facility] URINALYSIS W SPECIFIC [id number] 14:40:00* Test Item Value Reference Range Interpretation [...] U APPEAR (test code = 3267) . [facility] GLUCOSE (AUTOMATED)2023-10-14 05:19:09* Test Item Value Reference Range Interpretation Comme nts POCT GLU (test code = 6967117039) 86 mg/dL 70-110 Lab Interpretation (test cod e = 42680-3) Normal [facility] URINALYSIS W SPECIFIC [id number] 14:15:00* Test Item Value Reference Range Interpretation [...] U APPEAR (test code = 3267) . [facility] URINALYSIS W SPECIFIC [id number] 14:10:00* Test Item Value Reference Range Interpretation [...] U APPEAR (test code = 3267) . [facility] URINALYSIS W SPECIFIC [id number] 14:10:00* Test Item Value Reference Range Interpretation [...] U APPEAR (test code = 3267) . [facility] URINALYSIS W SPECIFIC [id number] 14:04:00* Test Item Value Reference Range Interpretation [...] POCT U APPEAR (test code = 3267) [facility] URINALYSIS W SPECIFIC [id number] 14:55:00* Test Item Value Reference Range Interpretation [...] U APPEAR (test code = 3267) . [facility] [id number] 13:31:00* Test Item Value Reference Range Interpretation Comme nts POCT PREG (test code = 1605) Positive On board controls acceptable with C Line (test code = 3574) Yes POCT PREG LOT # (test code = 3578) POCT PREG TEST DATE ( test code = 357) [facility] URINALYSIS W/O SPECIFIC [id number] 13:31:00* Test Item Value Reference Range Interpretation [...] = 3257) 250 [facility] [id number] 13:31:00* Test Item Value Reference Range Interpretation Comme nts POCT PREG (test code = 1605) Positive On board controls acceptable with C Line (test code = 3574) Yes POCT PREG LOT # (test code = 3575) POCT PREG TEST DATE ( test code = 357) [facility] URINALYSIS W/O SPECIFIC [id number] 13:31:00* Test Item Value Reference Range Interpretation [...] = 3257) 250 Negative - [facility] [id number] 13:31:00* Test Item Value Reference Range Interpretation Comme nts POCT PREG (test code = 1605) Positive On board controls acceptable with C Line (test code = 3574) Yes POCT PREG LOT # (test code = 3575) POCT PREG TEST DATE ( test code = 3576) [facility] URINALYSIS W/O SPECIFIC [id number] 13:31:00* Test Item Value Reference Range Interpretation [...] = 3257) 250 Negative - Negati ve [facility] [id number] 13:31:00* Test Item Value Reference Range Interpretation Comme nts POCT PREG (test code = 1605) Positive On board controls acceptable with C Line (test code = 3574) Yes POCT PREG LOT # (test code = 3575) POCT PREG TEST DATE ( test code = 357) [facility] URINALYSIS W/O SPECIFIC [id number] 13:31:00* Test Item Value Reference Range Interpretation [...] = 3257) 250 Negative - Negati ve [facility] [id number] 04:56:00* Test Item Value Reference Range Interpretation Comme nts POCT PREG (test code = 1605) Positive On board controls acceptable with C Line (test code = 3574) Yes POCT PREG LOT # (test code = 3575) [id number] POCT PREG TEST DATE ( test code = 357) 11/16/2024 Lab Interpretation (test cod e = 60251-9) Normal [facility] [id number] 06:01:00* Test Item Value Reference Range Interpretation Comme nts POCT PREG (test code = 1605) negative On board controls acceptable with C Line (test code = 3574) present POCT PREG LOT # (test code = 3575) [id number] POCT PREG TEST DATE ( test code = 3576) 2022-01-16 Lab Interpretation (test cod e = 78550-8) [facility] [id number] 01:17:00No acute bony abnormality. Becka Myers MD., have reviewed this study and agree with theabove report. EXAM: XR WRIST 3+ VW LEFT HISTORY: Wrist pain COMPARISON: None FINDINGS: Radiographs of the left wrist demonstrate no acute fracture or dislocation.The joint spaces are maintained. No soft tissue abnormality is seen. [facility], Radiant Results Inft User - 04/24/2019 8:19 PM CDTEXAM: XR WRIST 3+ VW LEFTHISTORY: Wrist pain COMPARISON: NoneFINDINGS:Radiographs of the left wrist demonstrate no acute fracture or dislocation.The joint spaces are maintained. No soft tissue abnormality is seen. IMPRESSIONNo acute bony abnormality.Santy Myers MD., have reviewed this study and agreewith theabove report.[facility] Notes Date/Time Note Provider Source 2024-11-14 08:37:29 Patient given discharge instructions on degenerative joint diease, and acute pain of left knee. Pt given prescriptions X 2 for norco and naprosyn. Pt left ER via wheelchair. No signs of distress. STINA Walters RN [facility] 2024-11-14 06:50:30 Pt brought by wheelchair from parking lot for CC of L knee pain that has been getting worse over the past week. Pt denies any trauma to knee. STINA Marie RN [facility] 2024-10-24 19:55:36 Pt discharged with diagnosis of chest pain, heartburn, and essential hypertension. Printed and verbal instructions reviewed with and given to pt. Prescriptions given x 1. pt verbalized understanding of teaching and recommended follow-up. Denies questions or concerns at this time. Pt ambulatory at discharge. Appears in no apparent distress. No ataxia noted. RAM WRITER Brittany Dorado RN [facility] 2024-10-24 17:52:18 Patient arrived ambulatory c/o reproducible chest wall pain that stays in center of the chest, does not radiate anywhere. Has history of acid reflex her Pepcid has not helped. Patient states it does feelin like a burning sensation. STINA Jordan RN [facility] 2024-02-29 10:08:50 Please advise patient she needs to seek her pcp/pysch for continued mgmt and refills of zoloft RICHARD Cantor 02/29/2024 10:09 AM [facility] 2023-11-18 22:39:06 Abd pain, pelvic pain, vaginal pressure that started around 1500 today, pt is , induction schedule 12/09/2023 RAM WRITER Ariella Chiu RN [facility] 2023-10-13 22:18:46 Pt arrives ambulatory to ED [...] called to L&D charge phone Katya BERMAN RAM WRITER Tatiana Jones RN [facility]
[2024-12-05] MEDS ORDERED: ACETAMINOPHEN 325 MG TABLET ONE (15:58)
--- NOTE | 2024-12-05 16:13 | ER ---
Nurse's Notes [facility] Name: Eros Jameson Age: 34 yrs Sex: Female : 1990 Arrival Date: 12/05/2024 Time: 14:34 Bed 12 Private MD: Diagnosis: Left knee pain, internal derangement of the left knee Presentation: 12/05 15:06 Chief complaint: Patient states: Left knee pain onset today. Pt states that she stepped cm10 up with her left leg and felt something pop on her left knee. Coronavirus screen: Client denies travel out of the [place] in the last 14 days. Ebola Screen: Patient denies travel to an Ebola-affected area in the 21 days before illness onset. Initial Sepsis Screen: Does the patient meet any 2 criteria? No. Patient's initial sepsis screen is negative. Does the patient have a suspected source of infection? No. Patient's initial sepsis screen is negative. Risk Assessment: Do you want to hurt yourself or someone else? Patient reports no desire to harm self or others. Onset of symptoms was December 05, 2024. 15:06 Method Of Arrival: Wheelchair cm10 15:06 Acuity: DANIELLE 4 cm10 Triage Assessment: 15:08 General: Appears uncomfortable, Behavior is calm, cooperative. Neuro: No deficits cm10 noted. Level of Consciousness is awake, alert, obeys commands, Oriented to person, place, time, situation, Appropriate for age. Respiratory: No deficits noted. Airway is patent Respiratory effort is even, unlabored, Respiratory pattern is regular, symmetrical. Musculoskeletal: Reports pain in left knee. 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 - Infectious Disease History:: Denies. - Social history:: Smoking status: Reported history of juuling and/or vaping. Screenin:25 [facility] ED Fall Risk Assessment (Adult) History of falling in the last 3 months, jb4 including since admission No falls in past 3 months (0 pts) Confusion or Disorientation No (0 pts) Intoxicated or Sedated No (0 pts) Impaired Gait No (0 pts) Mobility Assist Device Used No (0 pt) Altered Elimination No (0 pt) Score/Fall Risk Level 0 - 2 = Low Risk Oriented to surroundings, Maintained a safe environment. Abuse screen: Denies threats or abuse. Nutritional screening: No deficits noted. Tuberculosis screening: No symptoms or risk factors identified. Assessment: 16:25 General: Appears in no apparent distress. comfortable, Behavior is calm, cooperative, jb4 appropriate for age. Pain: Complains of pain in left knee Pain does not radiate. Pain currently is 10 out of 10 on a pain scale. Neuro: Level of Consciousness is awake, alert, obeys commands, Oriented to person, place, time, situation. Cardiovascular: Patient's skin is warm and dry. Respiratory: Airway is patent Respiratory effort is even, unlabored, Respiratory pattern is regular, symmetrical. Derm: Skin is intact, Skin is pink, warm \T\ dry. Musculoskeletal: Circulation, motion, and sensation intact. Range of motion: intact in all extremities. Vital Signs: 15:06 BP 148 / 92; Pulse 73; Resp 15; Temp 98.3; Pulse Ox 97% on R/A; Weight 156.49 kg; cm10 Height 5 ft. 7 in. ; Pain 10/10; 15:06 Body Mass Index 54.03 (156.49 kg, 170.18 cm) cm10 15:06 Pain Scale: Adult cm10 ED Course: 14:36 Patient arrived in ED. mr 14:44 Marii Leal MD is Attending Physician. sp3 15:07 Triage completed. cm10 15:07 Arm band placed on right wrist. Patient placed in an exam room, on a stretcher. cm10 16:25 Knee Left 3 View XRAY In Process Unspecified. EDMS 16:25 Patient has correct armband on for positive identification. Bed in low position. Call jb4 light in reach. Side rails up X 1. Provided Education on: discharge instructions.. 16:25 No provider procedures requiring assistance completed. Patient did not have IV access jb4 during this emergency room visit. Administered Medications: 16:07 Drug: Acetaminophen PO 650 mg PO once Route: PO; jb4 16:24 Follow up: Response: No adverse reaction jb4 Medication: 16:25 VIS not applicable for this client. jb4 Outcome: 16:12 Discharge ordered by . sp3 16:25 Discharged to home via wheelchair, jb4 16:25 Condition: stable 16:25 Discharge instructions given to patient, Instructed on discharge instructions, follow up and referral plans. no drinking with medication, no driving heavy equipment, medication usage, Demonstrated understanding of instructions, follow-up care, medications, Prescriptions given X 1, 16:28 Patient left the ED. jb4 Signatures: Dispatcher [employer] EDMS QamarKarishma, Reg Reg mr Robert Cantu RN RN jb4 Marii Leal MD MD sp3 Opal Sandra RN RN cm10
--- NOTE | 2024-12-05 16:13 | EDPHYS ---
Physician Documentation [facility] Name: Eros Jameson Age: 34 yrs Sex: Female : 1990 Arrival Date: 12/05/2024 Time: 14:34 Bed 12 Private MD: ED Physician Marii Leal HPI: 12/05 15:19 This 34 yrs old Black Female presents to ER via Wheelchair with complaints of Knee sp3 Injury. 15:19 34-year-old female with history of morbid obesity, diabetes and hypertension presents sp3 to the ED with left knee pain while walking into grocery store. She states that she "felt a pop" and is now painful laterally but is still able to ambulate. She denies any direct trauma, numbness, swelling or loss of strength. ROS otherwise negative.. 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 - Infectious Disease History:: Denies. - Social history:: Smoking status: Reported history of juuling and/or vaping. ROS: 15:27 Constitutional: Negative for fever, chills, and weight loss, Eyes: Negative for injury, sp3 pain, redness, and discharge, Neck: Negative for injury, pain, and swelling, Cardiovascular: Negative for chest pain, palpitations, and edema, Respiratory: Negative for shortness of breath, cough, wheezing, and pleuritic chest pain, Abdomen/GI: Negative for abdominal pain, nausea, vomiting, diarrhea, and constipation, Back: Negative for injury and pain, Skin: Negative for injury, rash, and discoloration, Neuro: Negative for headache, weakness, numbness, tingling, and seizure, Psych: Negative for depression, anxiety, suicide ideation, homicidal ideation, and hallucinations, Allergy/Immunology: Negative for hives, rash, and allergies, Endocrine: Negative for neck swelling, polydipsia, polyuria, polyphagia, and marked weight changes, Hematologic/Lymphatic: Negative for swollen nodes, abnormal bleeding, and unusual bruising, 15:27 All other systems are negative, Exam: 15:27 Constitutional: This is a well developed, well nourished patient who is awake, alert, sp3 and in no acute distress. Head/Face: Normocephalic, atraumatic. Eyes: Pupils equal round and reactive to light, extra-ocular motions intact. Lids and lashes normal. Conjunctiva and sclera are non-icteric and not injected. Cornea within normal limits. Periorbital areas with no swelling, redness, or edema. Skin: Warm, dry with normal turgor. Normal color with no rashes, no lesions, and no evidence of cellulitis. Neuro: Awake and alert, GCS 15, oriented to person, place, time, and situation. Cranial nerves II-XII grossly intact. Motor strength 5/5 in all extremities. Sensory grossly intact. Cerebellar exam normal. Normal gait. 15:27 Musculoskeletal/extremity: No drawer laxity. No pain on axial load. Pain to palpation laterally. No pain over the bursa. Vital signs normal.. Vital Signs: 15:06 BP 148 / 92; Pulse 73; Resp 15; Temp 98.3; Pulse Ox 97% on R/A; Weight 156.49 kg; cm10 Height 5 ft. 7 in. ; Pain 10/10; 15:06 Body Mass Index 54.03 (156.49 kg, 170.18 cm) cm10 15:06 Pain Scale: Adult cm10 MDM: 15:02 Medical Screening Exam initiated sp3 15:28 Data reviewed: vital signs, nurses notes, radiologic studies. ED course: 34-year-old sp3 female with left knee pain/potential injury while walking. Patient's body habitus likely contributing factor. Will obtain x-ray and if negative discharge home with orthopedic follow-up on NSAID and probable MRI. Will try and place knee immobilizer but may be limited again due to body habitus.. 16:12 ED course: X-ray negative. We will safely discharge patient home on tramadol follow-up sp3 with Ortho.. 12/05 15:11 Order name: Knee Left 3 View XRAY sp3 12/05 15:02 Order name: Vital Signs; Complete Time: 15:11 sp3 12/05 16:23 Order name: Ha Wrap; Complete Time: 16:24 zm Administered Medications: 16:07 Drug: Acetaminophen PO 650 mg PO once Route: PO; jb4 16:24 Follow up: Response: No adverse reaction jb4 Disposition Summary: 12/05/24 16:12 Discharge Ordered Notes: Location: Home sp3 Condition: Stable sp3 Diagnosis - Left knee pain, internal derangement of the left knee sp3 Followup: sp3 - With: Private Physician - When: Upon discharge from the Emergency Department - Reason: Continuance of care Discharge Instructions: - Discharge Summary Sheet sp3 - How to Use a Knee Immobilizer sp3 - Acute Knee Pain, Adult sp3 Forms: - Medication Reconciliation Form sp3 - Antibiotic Education sp3 - Prescription Opioid Use sp3 - Patient Portal Instructions sp3 - Leadership Thank You Letter sp3 Prescriptions: - Tramadol 50 mg Oral Tablet - take 1 tablet ORAL route every 8 hours as needed; 12 tablet; Refills: 0, sp3 Product Selection Permitted Signatures: Dispatcher [employer] EDRobert Brink RN RN jb4 Marii Leal MD MD sp3 Michelle Sandra Clarissa, RN RN cm10 Corrections: (The following items were deleted from the chart) 16:22 15:17 Knee Immobilizer ordered. sp3 lynda
--- NOTE | 2024-12-05 16:32 | RAD REPORT ---
EXAM: Knee Left 3 View INDICATION: PAIN COMPARISON: None FINDINGS: No acute fracture. Small nonspecific knee effusion. No significant focal degenerative changes. Other: N/A IMPRESSION: No acute osseous abnormality involving the imaged knee.
[2024-12-05 22:42] VITALS: BP 148/92; TEMP 98.3; O2SAT 97
== END 2024-12-05 16:28 | disposition home or self-care (01) ==
LOC: ER 14:34
DX: M23.92 Unspecified internal derangement of left knee (principal)